=== PATIENT | male | born 1945 | race Caucasian/White ===

== ENCOUNTER 2019-01-15 16:50 | Inpatient (IN) ==
--- NOTE | 2019-01-15 17:23 | XRay Report ---
SINGLE VIEW CHEST CLINICAL HISTORY: Pleural effusions. FINDINGS: An AP, portable, upright chest radiograph is compared to study dated 01/10/2019. The examin ation is degraded by portable technique and patient rotation. The heart is markedly enlarged noting a therosclerotic calcification of the thoracic aorta. There is pulmonary vascular congestion. A left ba silar chest tube is in place. There are left larger than right pleural effusions with associated cons olidation. Question a small left apical pneumothorax versus skinfold. The skeletal structures are ost eopenic. The bony thorax is grossly intact. IMPRESSION: 1. Cardiomegaly with evidence of congestive failure. 2. There are bilateral pleural effusions with associated consolidation, similar in appearance to 01/10. 3. Question a small left apical pneumothorax versus skinfold. Correlation with a PA and lateral exami nation is recommended. Electronically signed by: Mike Chavarria M.D. 01/15/2019 5:22 PM
[2019-01-15 17:58] LABS: Basophils # (auto) 0.01 K/uL (0-0.2); Basophils % (auto) 0.1 %; Eosinophils # (auto) 0.03 K/uL (0-0.5); Eosinophils % (auto) 0.2 %; Hematocrit (blood only) 37.2 % (42-52); Hemoglobin 11.3 g/dL (14.0-18.0); Immature Granulocytes # (auto) 0.06 K/uL (0.00-0.02); Immature Granulocytes % (auto) 0.4 %; Lymphocytes # (auto) 0.24 K/uL (1.2-3.4); Lymphocytes % (auto) 1.7 %; Mean Corpuscular Hemoglobin 25.4 pg (25-34); Mean Corpuscular Hgb Conc 30.4 g/dL (32-36); Mean Corpuscular Volume 83.6 fL (80-100); Mean Platelet Volume 9.6 fL (7.4-10.4); Monocytes # (auto) 0.77 K/uL (0.11-0.59); Monocytes % (auto) 5.4 %; Neutrophils # (auto) 13.21 K/uL (1.4-6.5); Neutrophils % (auto) 92.2 %; Platelet Count 170 K/uL (130-400); RDW Standard Deviation 63.8 fL (36.4-46.3); Red Blood Count 4.45 M/uL (4.7-6.1); White Blood Count 14.32 K/uL (4.8-10.8)
[2019-01-15 18:18] LABS: Echinocytes 2+; Hypochromasia Present; Ovalocytes 1+
[2019-01-15 18:55] LABS: Alanine Aminotransferase 48 U/L (12-78); Albumin Globulin Ratio 0.6 (0.9-2); Albumin Level 2.2 gm/dl (3.4-5.0); Alkaline Phosphatase 154 U/L (45-117); Aspartate Aminotransferase 32 U/L (15-37); BUN Creatinine Ratio 34.3 (10-20); Bilirubin,Total 0.5 mg/dl (0.2-1); Blood Urea Nitrogen 35 mg/dl (7-18); Calcium 8.9 mg/dl (8.5-10.1); Carbon Dioxide 33 mmol/L (21-32); Chloride 101 mmol/L (98-107); Creatinine Clr Calc Pharmacy 72.9 ml/min; Est GFR (African American) 85.3; Est GFR (Non-African American) 73.6; Globulin 3.7 gm/dl (2.5-4.0); Glucose 123 mg/dl (70-99); Sodium 138 mmol/L (136-145); Total Protein 5.9 gm/dl (6.4-8.2); Troponin I < 0.015 ng/ml (0-0.045)
--- NOTE | 2019-01-15 19:17 | CT Scan Report ---
CT chest wo con CLINICAL HISTORY: 73 years-old Male presenting with left apical pneumothorax. TECHNIQUE: Multidetector CT imaging of the chest was performed without the use of intravenous contras t. IV contrast: None. One or more dose lowering techniques were used consistent with the principles o f ALARA (as low as reasonably achievable), including automatic exposure control, mA or kV adjustment to individual patient size, and/or use of iterative reconstruction. COMPARISON: Chest x-ray performed earlier today. CT DOSE (mGy.cm): The estimated cumulative dose is 598.63 mGycm. FINDINGS: Assistant Import Manager topogram: Cardiomegaly. Soft tissues: Multiple thyroid nodules. Diffuse body wall edema. Numerous prominent mediastinal lymph nodes in prevascular and paratracheal regions. Some are calcified. Atherosclerosis of the aorta. Mul tichamber enlargement of the heart. Coronary artery, aortic valve, and mitral annular calcification. Small pericardial effusion. Moderate simple appearing right pleural effusion. Small to moderate locul ated left pleural effusion with a pleural drain positioned in the paramediastinal lower lung region. A second pleural drain is positioned in the paramediastinal posterior mid region. Prominent right upp er pole cyst suspected. Diffuse mesenteric edema and trace ascites. Lungs and airways: No pneumothorax. Multifocal occluded lobar, segmental, and subsegmental airways in the lower lobes. Prominent peribronchovascular consolidation in the lower lobes. Patchy peribronchov ascular consolidation in the remainder of the lobes. Pulmonary arteries are not significantly enlarge d relative to adjacent bronchi. No interlobular septal thickening. Musculoskeletal: Degenerative changes of the spine. IMPRESSION: 1. Extensive peribronchovascular consolidation most prominently in the lower lobes though also to va rying degrees throughout the remaining lobes. This is worrisome for multifocal pneumonia or multifoca l cryptogenic organizing pneumonia. 2. Extensive endobronchial debris in the lower lobes, which may represent mucous plugging, aspiratio n, or infectious debris. 3. Bilateral pleural effusions, loculated on the left with pleural drains in place. 4. No pneumothorax. 5. Volume overload with anasarca. No angel pulmonary edema. 6. Cardiomegaly. Electronically signed by: Zaheer Keys M.D. 01/15/2019 7:16 PM
[2019-01-15] MEDS ORDERED: VANCOMYCIN CONSULT ACTIVE PRN (19:25)
[2019-01-15] MEDS ORDERED: PIPERACILLIN/TAZOBACTAM 4.5 GM/120 ML BAG IV ONE (19:25)
[2019-01-15] MEDS ORDERED: PIPERACILL/TAZOBAC CONSULT ACTIVE PRN (19:25)
[2019-01-15] MEDS ORDERED: VANCOMYCIN HCL 1,750 MG in SODIUM CHLORIDE 0.9% 500 ML IV ONE (19:25)
[2019-01-15] MEDS ORDERED: ALBUT/IPRATROP 3MG/0.5MG NEB 3 ML VIAL NEB STA (19:41)
[2019-01-15] MEDS ORDERED: ATROPINE SULFATE 0.1 MG/ML 10ML SYR IV STA (20:26)
--- NOTE | 2019-01-15 20:33 | History & Physical Report ---
Date of Service January 15, 2019 Assessment & Plan (1) Acute hypoxemic respiratory failure: Multifactorial : COPD exacerbation secondary to HCAP, possible aspiration pneumonia, possible sepsis Decompensated heart failure, subacute symptoms, possibly secondary to chronic bradycardia/hx PAF (probable SSS) (Patient was told he was not a candidate for PPM to lung malignancy); fluid retention from prednisone Rx possibly contributory to CHF symptoms) malignant pleural effusion L sp CTT, Pleurx catheter placement hypertension, slightly elevated chronic right hydronephrosis/BPH indwelling Johnson catheter chronic anemia, hemoglobin at baseline Hyperglycemia likely secondary to prednisone Rx following discharge from [facility] rule out DM Past tobacco abuse PCU Supplemental O2 Baseline ABG Cultures, lactic acid, Zosyn, Vancomycin for now Swallow evaluation, aspiration precautions steroid dose for now, nebs RTC for COPD exacerbation (Consider tapering off patient's prednisone rx if okay with [facility] hog counter, Dr. Romero, given fluid retention) Pulmonary consult RE respiratory failure Diuretic Rx retrieve recent TTE results from [facility]; Cardiology consult RE symptomatic bradycardia causing subacute CHF Strict I/Os, daily weights, CHF education Continue current antihypertensives, may need dose titration Retrieve pertinent consultation records (Oncology, Pulmonology, Cardiology, CT surgery) of recent confinement from [facility] Basal insulin, ISS BG goal 140-180, check hemoglobin A1c DVT prophylaxis. IV heparin for now while Eliquis on hold RE possible procedure Full code Patient lists his friend, Mr. Luiz Monk as line person ([phone]). Case discussed with Dr. Zabala (security guard dispatcher on-call) who recommends oral Theophylline trial for now for patient's chronic bradycardia. Total critical time was 55 minutes. History of Present Illness Chief Complaint: Shortness of breath Primary Care Provider: Dr. Farooq History obtained from patient and records. Medical history significant for chronic systolic heart failure (EF unknown as per records), chronic respiratory secondary to COPD/malignant pleural effusion currently on home O2, chronic bradycardia/PAF on Eliquis, hypertension, past tobacco abuse, chronic right hydronephrosis/BPH indwelling Johnson catheter, chronic anemia baseline hemoglobin (10-11). Patient admitted at [facility] last July 2018 for increased shortness of breath. Patient found to have a left lung mass with left pleural effusion. Pleural effusion later found out to be malignant (SCLC as per [facility] Records, squamous cell carcinoma as per [facility] records). Patient also noted to have episodic bradycardia during confinement. Patient did not follow up with [facility] oncologist outpatient as patient was not initially interested in treatment. as per records. Patient seen at [facility] last month for uncontrolled blood pressure, CHF. CT showed interval increase in the left upper lobe hilar mass with likely mediastinal invasion. Interval increase in large left pleural effusion with associated compressive atelectasis of left lower lobe lung. No pulmonary artery embolism. Patient subsequently transferred to [facility] where he was confined from December 25-2018. Patient underwent CTT and Pleurx catheter placement for left pleural effusion. As per patient, he was told by [facility] security guard dispatcher that he was not a candidate for pacemaker given his cancer. Losartan stopped for hyperkalemia. Patient subsequently discharged to [facility] for rehab with instructions to follow-up with [facility] specialists outpatient within 1 week of discharge. Patient discharged on Prednisone 20 mg daily (indefinite duration) for COPD exacerbation by hog counter. Patient had expressed interest in pursuing chemotherapy as per records. Patient seen at [facility] ER 5 days ago for chest tube complications. Chest x-ray showed left basilar chest tube. Cardiomegaly with mild congestive change. Bibasilar densities/effusions left greater than the right. Pleur evac container was noted to be overflowing because [facility] staff would not change it as per patient. Pleur-evac was changed at the ER. Last few days patient noted worsening cough symptoms productive of junky sputum, coughing with meals/water if he is not careful. Increasing shortness of breath, no chest pain. No fever, no chills. At the ER, patient received IV Vanco and Zosyn for pneumonia. 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, estranged from and children Allergies Allergy/AdvReac Type Severity Reaction Status Date / Time hepatitis B immune globulin AdvReac Unknown Unverified 01/15/19 18:24 losartan AdvReac hyperkalemi Verified 01/16/19 05:06 a Home Medications Home Medications Medication Instructions Recorded Confirmed Type acetaminophen 650 mg PO Q6H PRN MDD 3G 01/10/19 01/15/19 History acetaminophen 650 mg PO Q6H PRN MDD 3G 01/10/19 01/15/19 History amlodipine 5 mg PO DAILY 01/10/19 01/15/19 History apixaban [Eliquis] 5 mg PO DAILY 01/10/19 01/15/19 History bisacodyl 10 mg MS DAILY PRN 01/10/19 01/15/19 History cyanocobalamin (vitamin B-12) 1,000 mcg PO DAILY 01/10/19 01/15/19 History folic acid 1 mg PO DAILY 01/10/19 01/15/19 History hydralazine 10 mg PO BID 01/10/19 01/15/19 History ipratropium-albuterol 3 ml INHALATION Q4H PRN 01/10/19 01/15/19 History magnesium hydroxide [Milk of 30 ml PO HS PRN 01/10/19 01/15/19 History Magnesia] oxycodone-acetaminophen [Percocet] 1 tab PO Q4H PRN 01/10/19 01/15/19 History oxycodone-acetaminophen [Percocet] 2 tab PO Q4 PRN 01/10/19 01/15/19 History pantoprazole [Protonix] 40 mg PO DAILY 01/10/19 01/15/19 History prednisone 20 mg PO DAILY 01/10/19 01/15/19 History pseudoephedrine-guaifenesin 1 tab PO Q12H PRN 01/10/19 01/15/19 History [Mucinex D] tamsulosin 0.4 mg PO DAILY 01/10/19 01/15/19 History Past Med/Surg History Medical History CHF (congestive heart failure) HTN (hypertension) Hydronephrosis, right Lung cancer Paroxysmal A-fib Pleural effusion, left Family History Other Family history non-contributory Social History Preferred Language: Georgian Communication Ability: Effective Field Care Manager Required: No Beliefs That Will Affect Care: None marital status: Single Current Living Situation: Senior Care current occupational status: retired Other Information That Helps Us Care for You: No Feels Safe at Home: Yes Safety Concerns: Afraid for Self Smoking Status: Former smoker Do You Dip or Chew Tobacco: No ; Second Hand Exposure: No ; Tobacco Cessation Education Requested by Patient: No Hx Alcohol Use: No Hx Substance Use: No Review of Systems Review of Systems: As per HPI, all 10 systems reviewed, all other ROS negative Physical Exam Physical Exam: GENERAL: uncomfortable, minimal respiratory distress, has to catch his breath during speech SKIN: Pallor, warm HEENT: Pale palpebral conjunctivae, no ptosis, dry buccal mucosa, nasal cannula in place NECK : Supple, no tenderness CHEST : Decreased breath sounds, expiratory wheezes, dressing over left chest wall HEART : Bradycardic, diminished S1-S2 ABDOMEN: Some distention, nontender EXTREMITIES : Bilateral LE swelling, no LE tenderness, no other conspicuous deformities noted NEUROLOGIC : Coherent, no facial asymmetry, no other gross focality Results & Data Vital Signs (Past 12 Hours) Vital Signs Temp Pulse Pulse Resp BP Pulse Ox 01/15/19 20:28 37 L 16 97 01/15/19 20:00 37 L 22 01/15/19 19:17 37 L 20 161/75 H 100 01/15/19 19:15 38 L 21 01/15/19 18:00 38 L 23 154/75 H 100 01/15/19 17:16 37.0 C 32 L 26 H 154/72 H 98 01/15/19 17:00 67 24 94 01/15/19 16:57 41 L 18 154/72 H 95 Laboratory Results Laboratory Results WBC 14.32 K/uL (4.8-10.8) H 01/15/19 17:45 RBC 4.45 M/uL (4.7-6.1) L 01/15/19 17:45 Hgb 11.3 g/dL (14.0-18.0) L 01/15/19 17:45 Hct 37.2 % (42-52) L 01/15/19 17:45 MCV 83.6 fL (80-100) 01/15/19 17:45 MCH 25.4 pg (25-34) 01/15/19 17:45 MCHC 30.4 g/dL (32-36) L 01/15/19 17:45 RDW Std Deviation 63.8 fL (36.4-46.3) H 01/15/19 17:45 RDW Coeff of Brenda 21.0 % (11.5-14.5) H 01/15/19 17:45 Plt Count 170 K/uL (130-400) 01/15/19 17:45 MPV 9.6 fL (7.4-10.4) 01/15/19 17:45 Immature Gran % (Auto) 0.4 % 01/15/19 17:45 Neut % (Auto) 92.2 % 01/15/19 17:45 Lymph % (Auto) 1.7 % 01/15/19 17:45 [place] % (Auto) 5.4 % 01/15/19 17:45 Eos % (Auto) 0.2 % 01/15/19 17:45 Baso % (Auto) 0.1 % 01/15/19 17:45 Immature Gran # (Auto) 0.06 K/uL (0.00-0.02) H 01/15/19 17:45 Neut # (Auto) 13.21 K/uL (1.4-6.5) H 01/15/19 17:45 Lymph # (Auto) 0.24 K/uL (1.2-3.4) L 01/15/19 17:45 [place] # (Auto) 0.77 K/uL (0.11-0.59) H 01/15/19 17:45 Eos # (Auto) 0.03 K/uL (0-0.5) 01/15/19 17:45 Baso # (Auto) 0.01 K/uL (0-0.2) 01/15/19 17:45 Hypochromasia Present 01/15/19 17:45 Ovalocytes 1+ 01/15/19 17:45 Echinocytes 2+ 01/15/19 17:45 Sodium 138 mmol/L (136-145) 01/15/19 17:45 Potassium 5.0 mmol/L (3.5-5.1) 01/15/19 17:45 Chloride 101 mmol/L (98-107) 01/15/19 17:45 Carbon Dioxide 33 mmol/L (21-32) H 01/15/19 17:45 Anion Gap 4.0 (3-11) 01/15/19 17:45 BUN 35 mg/dl (7-18) H 01/15/19 17:45 Creatinine 1.02 mg/dl (0.6-1.4) 01/15/19 17:45 Est Cr Clr Drug Dosing 72.9 ml/min 01/15/19 17:45 Est GFR ( Amer) 85.3 01/15/19 17:45 Est GFR (Non-Af Amer) 73.6 01/15/19 17:45 BUN/Creatinine Ratio 34.3 (10-20) H 01/15/19 17:45 Glucose 123 mg/dl (70-99) H 01/15/19 17:45 Calcium 8.9 mg/dl (8.5-10.1) 01/15/19 17:45 Total Bilirubin 0.5 mg/dl (0.2-1) 01/15/19 17:45 AST 32 U/L (15-37) 01/15/19 17:45 ALT 48 U/L (12-78) 01/15/19 17:45 Alkaline Phosphatase 154 U/L (45-117) H 01/15/19 17:45 Troponin I < 0.015 ng/ml (0-0.045) 01/15/19 17:45 Total Protein 5.9 gm/dl (6.4-8.2) L 01/15/19 17:45 Albumin 2.2 gm/dl (3.4-5.0) L 01/15/19 17:45 Globulin 3.7 gm/dl (2.5-4.0) 01/15/19 17:45 Albumin/Globulin Ratio 0.6 (0.9-2) L 01/15/19 17:45 Specimen Hemolysis 01/15/19 17:[address] chest: 1. Extensive peribronchovascular consolidation most prominently in the lower lobes though also to varying degrees throughout the remaining lobes. This is worrisome for multifocal pneumonia or multifocal cryptogenic organizing pneumonia. 2. Extensive endobronchial debris in the lower lobes, which may represent mucous plugging, aspiration, or infectious debris. 3. Bilateral pleural effusions, loculated on the left with pleural drains in place. 4. No pneumothorax. 5. Volume overload with anasarca. No angel pulmonary edema. 6. Cardiomegaly. EKG as per my interpretation rate 40, junctional bradycardia, normal axis, T wave flattening inferior leads, low voltage
[2019-01-15 20:39] LABS: Base Excess ABG 6.9 mEq/L (-9-1.8); HCO3 ABG 32 mmol/L (19-24); Oxygen Saturation ABG 97.9 % (90-95); PCO2 ABG 49 mmHg (35-46); PO2 ABG 105 mm/Hg (80-95); pH ABG 7.43 (7.35-7.45)
[2019-01-15 20:45] LABS: Allen Test Pos (Pos)
[2019-01-15] MEDS ORDERED: FUROSEMIDE 40 MG in SYRINGE 0 ML IV ONE (20:49)
[2019-01-15 20:56] LABS: Magnesium 2.1 mg/dl (1.8-2.4)
[2019-01-15 21:11] LABS: T4 Free Thyroxine 0.86 ng/dl (0.8-1.6)
[2019-01-15] MEDS ORDERED: FUROSEMIDE 40 MG/4 ML VIAL IV STA (21:14)
[2019-01-15 21:41] LABS: Appearance Urine Turbid (Clear); Bacteria Urine Automated Negative (Negative); Bilirubin Urine Negative (Negative); Blood Urine 3+ (Negative); Color Urine Yellow; Epithelial Cell Urine Auto >30 /lpf (0-5); Glucose Urine UA Negative (Negative); Ketones Urine Negative (Negative); Leukocyte Esterase Urine 2+ (Negative); Nitrite Urine Negative (Negative); Protein Urine Negative (Negative); Specific Gravity Urine 1.022 (1.000-1.030); Urobilinogen Urine Negative (Negative)
[2019-01-15 21:54] LABS: Mucus Urine Present (None Prsent); Renal Epithelial Cells Urine 0-5 /lpf (0-5); Uric Acid Crystals Urine Present (None Prsent)
--- NOTE | 2019-01-15 23:25 | Emergency Department Note ---
Entered by Sammy Truong acting as a scribe for History of Present Illness General Chief complaint: Shortness of Breath/Dyspnea Stated complaint: SOB, WEAKNESS Time Seen by Provider: 01/15/19 16:52 Source: patient Mode of arrival: EMS Limitations: no limitations History of Present Illness Provider complaint: Full Pleur/evac, Difficulty Breathing Location: chest Radiation: non-radiation Pain Consistency: + constant Relieved By: + none Exacerbated By: + none Associated symptoms: + denies other symptoms Treatments prior to arrival: none The patient is a 73 year old male who presents to the Emergency Department with complaints of difficulty breathing as well as a full pleur/evac. The patient has lung cancer from which he gets pleural effusions in both of his lungs. He was sent to the ED a few days ago because his pleur/evac was full, after it was changed he was sent home. He is here today for the same reason. He stated that the people at [facility] felt he was having more difficulty breathing and they sent him in. The patient is not feeling any chest pain, fevers, or vomiting. He states he is not more short of breath than his baseline. He does have a cough. He also denies any new swelling in his legs. Per EMS, the patient has two left sided chest tubes due to lung cancer, he was sent here because his tube is full. The patient is having trouble breathing. EMS also noted that his heart rate has been in the 30s but the nurse states that he has always had a heart rate in the 30s. Home Medications Home Medications Medication Instructions Recorded Confirmed Type acetaminophen 650 mg PO Q6H PRN MDD 3G 01/10/19 01/15/19 History acetaminophen 650 mg PO Q6H PRN MDD 3G 01/10/19 01/15/19 History amlodipine 5 mg PO DAILY 01/10/19 01/15/19 History apixaban [Eliquis] 5 mg PO DAILY 01/10/19 01/15/19 History bisacodyl 10 mg [place] DAILY PRN 01/10/19 01/15/19 History cyanocobalamin (vitamin B-12) 1,000 mcg PO DAILY 01/10/19 01/15/19 History folic acid 1 mg PO DAILY 01/10/19 01/15/19 History hydralazine 10 mg PO BID 01/10/19 01/15/19 History ipratropium-albuterol 3 ml INHALATION Q4H PRN 01/10/19 01/15/19 History magnesium hydroxide [Milk of 30 ml PO HS PRN 01/10/19 01/15/19 History Magnesia] oxycodone-acetaminophen [Percocet] 1 tab PO Q4H PRN 01/10/19 01/15/19 History oxycodone-acetaminophen [Percocet] 2 tab PO Q4 PRN 01/10/19 01/15/19 History pantoprazole [Protonix] 40 mg PO DAILY 01/10/19 01/15/19 History prednisone 20 mg PO DAILY 01/10/19 01/15/19 History pseudoephedrine-guaifenesin 1 tab PO Q12H PRN 01/10/19 01/15/19 History [Mucinex D] tamsulosin 0.4 mg PO DAILY 01/10/19 01/15/19 History Allergies Allergy/AdvReac Type Severity Reaction Status Date / Time hepatitis B immune globulin AdvReac Unknown Unverified 01/15/19 18:24 Past Med/Surg History Medical History CHF (congestive heart failure) HTN (hypertension) Hydronephrosis, right Lung cancer Paroxysmal A-fib Pleural effusion, left Family History Other Family history non-contributory Social History Preferred Language: Setswana marital status: Single Current Living Situation: Long-Term current occupational status: retired Feels Safe at Home: Yes Smoking Status: Former smoker Review of Systems See HPI for pertinent positives & negatives. and A total of 10 systems reviewed and were otherwise negative Physical Exam Vital Signs Vital Signs - 24 hr 01/15/19 16:57 01/15/19 17:00 01/15/19 17:16 Temperature 37.0 C Temperature Source Oral Sepsis Recent Fever Within 48 Hours No Sepsis New/Unexplained Change in Mental Status No Sepsis Action Taken by Nursing No Action Required Pulse Rate 41 L 67 32 L Pulse Rate [Right Radial] Pulse Rate from SpO2 Sensor 40 L 39 L Pulse Rhythm Irregular Irregular Pulse Strength Normal Respiratory Rate 18 24 26 H Respiratory Effort / Characteristics Spontaneous Labored Respiratory Depth Deep Respiratory Pattern Regular Blood Pressure 154/72 H 154/72 H Blood Pressure Mean 99 99 Blood Pressure Position Sitting Pulse Oximetry 95 94 98 Oxygen Delivery Method Nasal Cannula Nasal Cannula Oxygen Flow Rate 4 4 01/15/19 18:00 01/15/19 19:15 01/15/19 19:17 Temperature Temperature Source Sepsis Recent Fever Within 48 Hours Sepsis New/Unexplained Change in Mental Status Sepsis Action Taken by Nursing Pulse Rate 38 L 38 L 37 L Pulse Rate [Right Radial] Pulse Rate from SpO2 Sensor 38 L 37 L Pulse Rhythm Pulse Strength Respiratory Rate 23 21 20 Respiratory Effort / Characteristics Respiratory Depth Respiratory Pattern Blood Pressure 154/75 H 161/75 H Blood Pressure Mean 101 103 Blood Pressure Position Pulse Oximetry 100 100 Oxygen Delivery Method Oxygen Flow Rate 01/15/19 20:00 01/15/19 20:28 01/15/19 20:50 Temperature Temperature Source Sepsis Recent Fever Within 48 Hours Sepsis New/Unexplained Change in Mental Status Sepsis Action Taken by Nursing Pulse Rate 37 L 37 L Pulse Rate [Right Radial] 37 L Pulse Rate from SpO2 Sensor Pulse Rhythm Pulse Strength Respiratory Rate 22 16 22 Respiratory Effort / Characteristics Non-Labored Spontaneous Respiratory Depth Respiratory Pattern Blood Pressure 147/72 H Blood Pressure Mean 97 Blood Pressure Position Pulse Oximetry 97 Oxygen Delivery Method Nasal Cannula Oxygen Flow Rate 4 01/15/19 21:00 Temperature Temperature Source Sepsis Recent Fever Within 48 Hours Sepsis New/Unexplained Change in Mental Status Sepsis Action Taken by Nursing Pulse Rate 40 L Pulse Rate [Right Radial] Pulse Rate from SpO2 Sensor Pulse Rhythm Pulse Strength Respiratory Rate 20 Respiratory Effort / Characteristics Respiratory Depth Respiratory Pattern Blood Pressure 145/71 H Blood Pressure Mean 95 Blood Pressure Position Pulse Oximetry Oxygen Delivery Method Oxygen Flow Rate Constitutional: Vital signs reviewed. Eyes: Pupils are equal round reactive to light. Conjunctiva are noninjected. ENT: Pharynx is clear without erythema or exudate. Mucous membranes are moist. Neck supple without meningeal signs. Respiratory: Breath sounds are diminished at the bases. No wheezing is noted. Two left sided chest tubes, 1 capped and 1 draining into a pleur/evac which is full, no bleeding or infection from insertion site. The pleur/evac is full with serosanguineous material. Cardiovascular: Bradycardic. Irregularly irregular rhythm. GI: Soft, nondistended and nontender. Bowel sounds are present. Johnson in place with dark yellow urine and sediment. Musculoskeletal: Bilateral edema to lower extremities, no tenderness. Integumentary: No cyanosis. Neurological: The patient is awake and alert. No focal deficits. Psychiatric: Normal affect. Course 1653: Medical records reviewed. The patient was seen in room C10, a physical examination was performed. 1924: I spoke with the patient about his test results, he is agreeable to hospitalization. He would like something to eat. He is drained about 50 cc of serosanguineous fluid in the new pleuro/evak. 1929: I spoke with the Dr. Dominguez, [facility] Hospitalist, about the patients case and he agreed to accept the patient for further evaluation. 1934: The patient was admitted. Administered Medications Discontinued Medications Albuterol (Duoneb) 3 ml NEB NOW STA Stop: 01/15/19 19:42 Last Admin: 01/15/19 20:26 Dose: 3 ml Documented by: [id number] Atropine Sulfate (Atropine Sulfate) 0.5 mg IV NOW STA Stop: 01/15/19 20:27 Last Admin: 01/15/19 21:19 Dose: 0.5 mg Documented by: [id number] Furosemide (Lasix) 40 mg IV NOW STA Stop: 01/15/19 21:15 Last Admin: 01/15/19 21:18 Dose: 40 mg Documented by: [id number] Piperacillin Sod/Tazobactam Sod (Zosyn) 4.5 gm in 120 mls @ 240 mls/hr IV NOW ONE Stop: 01/15/19 19:54 Last Infusion: 01/15/19 22:51 Dose: 0 mls/hr Documented by: [id number] Admin: 01/15/19 20:35 Dose: 240 mls/hr Documented by: [id number] Vancomycin HCl 1,750 mg/ (Sodium Chloride) 535 mls @ 200 mls/hr IV NOW ONE Stop: 01/15/19 22:05 Last Admin: 01/15/19 21:18 Dose: 200 mls/hr Documented by: [id number] Methylprednisolone (Solumedrol) 40 mg IV NOW STA Stop: 01/15/19 19:42 Last Admin: 01/15/19 20:35 Dose: 40 mg Documented by: [id number] Medical Decision Making Differential Diagnosis Differential Diagnosis: Equipment malfunction, pleural effusion, PNA, lung cancer, bradycardia Medical Records Attestation: I reviewed the patient's medical records. The patient was seen here on January [address] Henson for problems with his chest tubes. His heart rate was in the 30s with Afib. Pleur/evac were changed and he was discharged home. Home Medications Current Medication List: was personally reviewed by me Laboratory Data Attestation: I reviewed the patient's lab results. Result diagrams: 01/15/19 17:45 01/15/19 17:45 Lab Results 01/15/19 01/15/19 01/15/19 Range/Units 17:45 17:45 20:04 WBC 14.32 H (4.8-10.8) K/uL RBC 4.45 L (4.7-6.1) M/uL Hgb 11.3 L (14.0-18.0) g/dL Hct 37.2 L (42-52) % MCV 83.6 (80-100) fL MCH 25.4 (25-34) pg MCHC 30.4 L (32-36) g/dL RDW Std Deviation 63.8 H (36.4-46.3) fL RDW Coeff of Brenda 21.0 H (11.5-14.5) % Plt Count 170 (130-400) K/uL MPV 9.6 (7.4-10.4) fL Immature Gran % (Auto) 0.4 % Neut % (Auto) 92.2 % Lymph % (Auto) 1.7 % [place] % (Auto) 5.4 % Eos % (Auto) 0.2 % Baso % (Auto) 0.1 % Immature Gran # (Auto) 0.06 H (0.00-0.02) K/uL Neut # (Auto) 13.21 H (1.4-6.5) K/uL Lymph # (Auto) 0.24 L (1.2-3.4) K/uL [place] # (Auto) 0.77 H (0.11-0.59) K/uL Eos # (Auto) 0.03 (0-0.5) K/uL Baso # (Auto) 0.01 (0-0.2) K/uL Hypochromasia Present Ovalocytes 1+ Echinocytes 2+ ABG pH (7.35-7.45) ABG pCO2 (35-46) mmHg ABG pO2 (80-95) mm/Hg ABG HCO3 (19-24) mmol/L ABG O2 Saturation (90-95) % ABG Base Excess (-9-1.8) mEq/L Gerald Test (Pos) Barometric Pressure mm/Hg Oxygen Given Sodium 138 (136-145) mmol/L Potassium 5.0 (3.5-5.1) mmol/L Chloride 101 (98-107) mmol/L Carbon Dioxide 33 H (21-32) mmol/L Anion Gap 4.0 (3-11) BUN 35 H (7-18) mg/dl Creatinine 1.02 (0.6-1.4) mg/dl Est Cr Clr Drug Dosing 72.9 ml/min Est GFR ( Amer) 85.3 Est GFR (Non-Af Amer) 73.6 BUN/Creatinine Ratio 34.3 H (10-20) Glucose 123 H (70-99) mg/dl Lactate (0.4-2.0) mmol/L Calcium 8.9 (8.5-10.1) mg/dl Magnesium 2.1 (1.8-2.4) mg/dl Total Bilirubin 0.5 (0.2-1) mg/dl AST 32 (15-37) U/L ALT 48 (12-78) U/L Alkaline Phosphatase 154 H (45-117) U/L Troponin I < 0.015 (0-0.045) ng/ml NT-Pro-B Natriuret Pep 2971 H (0-900) pg/ml Total Protein 5.9 L (6.4-8.2) gm/dl Albumin 2.2 L (3.4-5.0) gm/dl Globulin 3.7 (2.5-4.0) gm/dl Albumin/Globulin Ratio 0.6 L (0.9-2) TSH 11.000 H (0.300-4.500) uIu/ml Free T4 0.86 (0.8-1.6) ng/dl Specimen Hemolysis 01/15/19 01/15/19 Range/Units 20:04 20:04 WBC (4.8-10.8) K/uL RBC (4.7-6.1) M/uL Hgb (14.0-18.0) g/dL Hct (42-52) % MCV (80-100) fL MCH (25-34) pg MCHC (32-36) g/dL RDW Std Deviation (36.4-46.3) fL RDW Coeff of Brenda (11.5-14.5) % Plt Count (130-400) K/uL MPV (7.4-10.4) fL Immature Gran % (Auto) % Neut % (Auto) % Lymph % (Auto) % [place] % (Auto) % Eos % (Auto) % Baso % (Auto) % Immature Gran # (Auto) (0.00-0.02) K/uL Neut # (Auto) (1.4-6.5) K/uL Lymph # (Auto) (1.2-3.4) K/uL [place] # (Auto) (0.11-0.59) K/uL Eos # (Auto) (0-0.5) K/uL Baso # (Auto) (0-0.2) K/uL Hypochromasia Ovalocytes Echinocytes ABG pH 7.43 (7.35-7.45) ABG pCO2 49 H (35-46) mmHg ABG pO2 105 H (80-95) mm/Hg ABG HCO3 32 H (19-24) mmol/L ABG O2 Saturation 97.9 H (90-95) % ABG Base Excess 6.9 H (-9-1.8) mEq/L Gerald Test Pos (Pos) Barometric Pressure 736.4 mm/Hg Oxygen Given 4 L Sodium (136-145) mmol/L Potassium (3.5-5.1) mmol/L Chloride (98-107) mmol/L Carbon Dioxide (21-32) mmol/L Anion Gap (3-11) BUN (7-18) mg/dl Creatinine (0.6-1.4) mg/dl Est Cr Clr Drug Dosing ml/min Est GFR ( Amer) Est GFR (Non-Af Amer) BUN/Creatinine Ratio (10-20) Glucose (70-99) mg/dl Lactate 1.1 (0.4-2.0) mmol/L Calcium (8.5-10.1) mg/dl Magnesium (1.8-2.4) mg/dl Total Bilirubin (0.2-1) mg/dl AST (15-37) U/L ALT (12-78) U/L Alkaline Phosphatase (45-117) U/L Troponin I (0-0.045) ng/ml NT-Pro-B Natriuret Pep (0-900) pg/ml Total Protein (6.4-8.2) gm/dl Albumin (3.4-5.0) gm/dl Globulin (2.5-4.0) gm/dl Albumin/Globulin Ratio (0.9-2) TSH (0.300-4.500) uIu/ml Free T4 (0.8-1.6) ng/dl Specimen Hemolysis Imaging Data Radiologist's Impression: Radiology results as stated below per my review and the radiologist's interpretation: SINGLE VIEW CHEST CLINICAL HISTORY: Pleural effusions. FINDINGS: An AP, portable, upright chest radiograph is compared to study dated 01/10/2019. The examination is degraded by portable technique and patient rotation. The heart is markedly enlarged noting atherosclerotic calcification of the thoracic aorta. There is pulmonary vascular congestion. A left basilar chest tube is in place. There are left larger than right pleural effusions with associ ated consolidation. Question a small left apical pneumothorax versus skinfold. The skeletal structures are osteopenic. The bony thorax is grossly intact. IMPRESSION: 1. Cardiomegaly with evidence of congestive failure. 2. There are bilateral pleural effusions with associated consolidation, similar in appearance to 01/10/2019. 3. Question a small left apical pneumothorax versus skinfold. Correlation with a PA and lateral examination is recommended. Electronically signed by: Mike Chavarria M.D. 01/15/2019 5:[address] chest wo con CLINICAL HISTORY: 73 years-old Male presenting with left apical pneumothorax. TECHNIQUE: Multidetector CT imaging of the chest was performed without the use of intravenous contrast. IV contrast: None. One or more dose lowering techniques were used consistent with the principles of ALARA (as low as reasonably achiev able), including automatic exposure control, mA or kV adjustment to individual patient size, and/or use of iterative reconstruction. COMPARISON: Chest x-ray performed earlier today. CT DOSE (mGy.cm): The estimated cumulative dose is 598.63 mGycm. 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 Soft tissues: Multiple thyroid nodules. Diffuse body wall edema. Numerous prominent mediastinal lymph nodes in prevascular and paratracheal regions. Some are calcified. Atherosclerosis of the aorta. Multichamber enlargement of the heart. Coronary artery, aortic valve, and mitral annular calcification. Small pericardial effusion. Moderate simple appearing right pleural effusion. Small to moderate loculated left pleural effusion with a pleural drain positioned in the paramediastinal lower lung region. A second pleural drain is positioned in the paramediastinal posterior mid region. Prominent right upper pole cyst suspected. Diffuse mesenteric edema and trace ascites. Lungs and airways: No pneumothorax. Multifocal occluded lobar, segmental, and subsegmental airways in the lower lobes. Prominent peribronchovascular consolidation in the lower lobes. Patchy peribronchovascular consolidation in the remainder of the lobes. Pulmonary arteries are not significantly enlarged relative to adjacent bronchi. No interlobular septal thickening. Musculoskeletal: Degenerative changes of the spine. IMPRESSION: 1. Extensive peribronchovascular consolidation most prominently in the lower lobes though also to varying degrees throughout the remaining lobes. This is worrisome for multifocal pneumonia or multifocal cryptogenic organizing pneumonia. 2. Extensive endobronchial debris in the lower lobes, which may represent mucous plugging, aspiration, or infectious debris. 3. Bilateral pleural effusions, loculated on the left with pleural drains in place. 4. No pneumothorax. 5. Volume overload with anasarca. No angel pulmonary edema. 6. Cardiomegaly. Electronically signed by: Zaheer Keys M.D. 01/15/2019 7:16 PM ECG Data Attestation: I personally reviewed and interpreted this ECG as follows: Indication: bradycardia Rate (beats per minute): 39 Rhythm: atrial fibrillation Findings: + other (Low voltage QRS); no PVC Blood Pressure Blood Pressure Findings: Elevated blood pressure Blood Pressure Disposition: further management by hospitalist EFREN Wen I did evaluate the patient as noted above. I did obtain history from the patient as well as EMS and the nurse who took care of him previously. The patient is presenting with increased shortness of breath and his Pleur-evac his fall. It does have serosanguineous fluids. He states he has no symptoms above his baseline at this time. On exam he does have diminished breath sounds at both bases. IV access was established. The patient was placed on a continuous monitoring specialist. I did order and personally review the patient's 12-lead EKG as described above. His twelve-lead EKG demonstrates bradycardia. Looking at his previous visit he had a heart rate in the 30s at that time as well. He is maintaining his blood pressure and is actually hypertensive and so I was not concerned about his heart rate at this time. I did order and personally reviewed the images of the patient's chest x-ray as described above. He does appear to have pleural effusions with consolidation similar to his previous [facility] x-ray. There was a question of a small apical pneumothorax. I did feel he had increased consolidation on the right side and so I did order a CT scan. I did order a CT of the abdomen and pelvis. I did review the images myself as well as the radiology report as described above. He does have bilateral effusions with the left being greater and significant consolidation. I did order blood cultures. I did treat the patient with IV Zosyn and vancomycin. I did order a urine analysis. He does not have an infection. I did order and review the patient's blood work as noted in the electronic medical record. His white count is elevated. Troponin is negative. He is anemic. I did discuss the test results with the patient. I did discuss the case with the hospitalist and major case detective. Impression & Plan Multifocal pneumonia, Bilateral pleural effusion, Malignant pleural effusion, Acute pericardial effusion, Anemia, Oxygen dependent, Bradycardia Discharge Plan Visit Data Chief Complaint: Shortness of Breath/Dyspnea Stated Complaint: SOB, WEAKNESS ED Provider: Adalid Alfaro Discharge Problem: Multifocal pneumonia, Bilateral pleural effusion, Malignant pleural effusion, Acute pericardial effusion, Anemia, Oxygen dependent, Bradycardia Patient Disposition: Being Evaluated by Hospitalist Discharge Instructions Interventions: ED Discharge Assessment Last Done: 01/15/19 22:49 Discharge Problem: Anemia Qualifiers: Anemia type: unspecified type Qualified Code(s): D64.9 - Anemia, unspecified The ionibe's documentation has been prepared under my direction and personally reviewed by me in its entirety. I confirm that the note above accurately reflects all work, treatment, procedures, and medical decision making performed by me.
[2019-01-15] MEDS ORDERED: PROMETHAZINE HCL 12.5 MG in SODIUM CHLORIDE 0.9% 50 ML IV PRN (23:48)
[2019-01-15] MEDS ORDERED: NITROGLYCERIN SL 0.4 MG/TAB TAB SL PRN (23:48)
[2019-01-15] MEDS ORDERED: OXYCODONE/ACETAMINOPHEN 5mg/325mg TAB PO PRN ×2 (23:48)
[2019-01-15] MEDS ORDERED: MoRPHine SULFATE 4 MG/ML 1 ML CARP\\VIAL IV PRN (23:48)
[2019-01-15] MEDS ORDERED: ACETAMINOPHEN 325 MG TAB PO PRN ×2 (23:48)
[2019-01-16] MEDS ORDERED: Heparin IV Standard *NO* Bolus IV SCH
[2019-01-16] MEDS ORDERED: GLUCAGON FOR INJ 1 MG VIAL IM PRN (00:15)
[2019-01-16] MEDS ORDERED: GLUCOSE 10 TABS/TUBE PO PRN ×2 (00:15→20:50)
[2019-01-16] MEDS ORDERED: GLUCOSE 40% GEL 15 GM TUBE PO PRN ×2 (00:15→20:50)
[2019-01-16] MEDS ORDERED: DEXTROSE 50% 50 ML SYRINGE IV PRN ×2 (00:15→20:50)
[2019-01-16] MEDS ORDERED: CARBOHYDRATES FOR HYPOGLYCEMIA PO PRN ×2 (00:15→20:50)
[2019-01-16] MEDS: ALBUT/IPRATROP 3MG/0.5MG NEB 3 ML VIAL NEB SCH ×7 (00:36→23:20)
--- NOTE | 2019-01-16 00:58 | Pharmacy Report ---
Pharmacy Abx Initial Consult - Date of Service January 16, 2019 - Pharmacy Dosing Scope Date of Consult: 01/15/19 Consultation requested by: Dr. CANDELARIA Pharmacy is consulted to initiate VANCOMYCIN/ZOSYN IV dosing therapy, order appropriate labs and adjust drug dose/frequency. - Subjective The patient is a 73 year old M admitted on 01/15/19 21:12. - Objective Height: 6 ft Weight: 87 kg Vital Signs (Past 12hrs): Vital Signs Temp Pulse Pulse Pulse Resp BP Pulse Ox 01/16/19 00:36 35 L 18 100 01/15/19 22:31 37 L 19 197/86 H 01/15/19 22:00 38 L 19 01/15/19 21:00 40 L 20 145/71 H 01/15/19 20:50 37 L 22 147/72 H 01/15/19 20:28 37 L 16 97 01/15/19 20:00 37 L 22 01/15/19 19:17 37 L 20 161/75 H 100 01/15/19 19:15 38 L 21 01/15/19 18:00 38 L 23 154/75 H 100 01/15/19 17:16 37.0 C 32 L 26 H 154/72 H 98 01/15/19 17:00 67 24 94 01/15/19 16:57 41 L 18 154/72 H 95 Lab Results (24hrs): Laboratory Tests (24 Hours) 01/15/19 01/15/19 17:45 17:45 WBC 14.32 H Neut # (Auto) 13.21 H Creatinine 1.02 Est Cr Clr Drug Dosing 72.9 Micro Results: 01/15/19 20:04 Aerobic Blood Culture - Pending Blood Anaerobic Blood Culture - Pending 01/15/19 20:04 Aerobic Blood Culture - Pending Blood Anaerobic Blood Culture - Pending - Risk Factors for Resistance * Resident in a prison or extended-care facility * CHEST TUBES FOR PLEURAL EFFUSIONS - Assessment & Plan Assessment 73 year old M ADMITTED WITH DIFFICULTY BREATHING Plan VANCOMYCIN/ZOSYN for treatment of PNEUMONIA Vancomycin IV * Estimated PK Parameters: Vd 0.7 L/kg, Dequan 0.065 hr-1, t1/2 10.66 hr * Loading dose: 1750 mg (20 mg/kg) * Maintenance dose: 1250 mg IV (15 mg/kg) every 12 hours (START SLIGHTLY EARLY ONLY 20 MG/KG GIVEN) * Goal trough level for PULMONARY INFECTION : 15 to 20 mcg/mL * Trough ordered for 01/17/19 Piperacillin/tazobactam * 4.5 g bolus administered over 30 minutes, then 3.375 g IV extended infusion every 8 hours for CrCl greater than 20 mL/min Pharmacy will continue to follow and will adjust dose/frequency as necessary. Thank you.
[2019-01-16] MEDS ORDERED: INSULIN GLARGINE SOLOSTAR 100 UNITS/ML 3 ML PEN SQ SCH (01:00)
[2019-01-16] MEDS ORDERED: HydrALAZINE 10 MG TAB PO SCH (01:00)
[2019-01-16] MEDS ORDERED: AMLODIPINE BESYLATE 5 MG TAB PO ONE (01:00)
[2019-01-16 01:22] LABS: Partial Thromboplastin Ratio 1.1; Partial Thromboplastin Time 28.8 Seconds (21.0-31.0)
[2019-01-16] MEDS: HEPARIN SODIUM/DEXTROSE 25,000 UNITS/500 ML BAG IV SCH ×2 (01:32→15:53)
[2019-01-16] MEDS: PIPERACILLIN/TAZOBACTAM 3.375 GM in DEXTROSE 5% 100 ML IV SCH ×3 (01:53→17:29)
[2019-01-16] MEDS: HydrALAZINE 10 MG TAB PO SCH ×4 (01:55→21:30)
[2019-01-16] MEDS: THEOPHYLLINE 300MG EXTENDED REL TAB PO SCH ×3 (01:55→21:31)
[2019-01-16 06:35] LABS: Estimated Average Glucose 128 mg/dl; Hemoglobin A1C 6.1 % (4.5-5.6)
[2019-01-16 07:26] LABS: Basophils # (auto) 0.01 K/uL (0-0.2); Basophils % (auto) 0.1 %; Hematocrit (blood only) 36.6 % (42-52); Immature Granulocytes # (auto) 0.03 K/uL (0.00-0.02); Immature Granulocytes % (auto) 0.3 %; Lymphocytes # (auto) 0.28 K/uL (1.2-3.4); Lymphocytes % (auto) 2.8 %; Mean Corpuscular Hemoglobin 24.7 pg (25-34); Mean Corpuscular Hgb Conc 30.1 g/dL (32-36); Mean Corpuscular Volume 82.2 fL (80-100); Mean Platelet Volume 8.6 fL (7.4-10.4); Neutrophils # (auto) 9.51 K/uL (1.4-6.5); Neutrophils % (auto) 93.8 %; Platelet Count 123 K/uL (130-400); RDW Coefficient of Variation 20.5 % (11.5-14.5); Red Blood Count 4.45 M/uL (4.7-6.1); White Blood Count 10.13 K/uL (4.8-10.8)
[2019-01-16 07:37] LABS: Partial Thromboplastin Ratio 1.4; Partial Thromboplastin Time 37.9 Seconds (21.0-31.0)
[2019-01-16 07:47] LABS: Anisocytosis Present; Ovalocytes 1+
[2019-01-16] MEDS: FOLIC ACID 1 MG TAB PO SCH (07:48)
[2019-01-16] MEDS: predniSONE 20 MG TAB PO SCH (07:49)
[2019-01-16] MEDS: AMLODIPINE BESYLATE 5 MG TAB PO SCH (07:49)
[2019-01-16] MEDS: TAMSULOSIN HCL 0.4 MG CAP PO SCH (07:49)
[2019-01-16] MEDS: PANTOprazole 40 MG TAB PO SCH (07:50)
[2019-01-16] MEDS: FUROSEMIDE 40 MG in SYRINGE 0 ML IV SCH ×2 (07:51→21:29)
[2019-01-16 07:55] LABS: BUN Creatinine Ratio 32.2 (10-20); Calcium 8.8 mg/dl (8.5-10.1); Creatinine Clr Calc Pharmacy 72.2 ml/min; Est GFR (African American) 84.3; Est GFR (Non-African American) 72.7; Potassium 4.4 mmol/L (3.5-5.1)
[2019-01-16] MEDS: VANCOMYCIN HCL 1,250 MG in SODIUM CHLORIDE 0.9% 250 ML IV SCH ×2 (07:56→19:45)
[2019-01-16] MEDS ORDERED: INFLUENZA VIRUS QUAD VACCINE 0.5 ML SYR IM ONE (08:00)
[2019-01-16] MEDS ORDERED: HEPARIN IV BOLUS 7,000 UNITS in SYRINGE 0 ML IV ONE (08:00)
[2019-01-16] MEDS ORDERED: INFLUENZA ADMINISTRATION CHARGE ONE (08:00)
[2019-01-16 08:05] LABS: Thyroid Stimulating Hormone 8.66 uIu/ml (0.300-4.500)
[2019-01-16] MEDS ORDERED: predniSONE 20 MG TAB PO SCH (09:00)
--- NOTE | 2019-01-16 09:41 | Cardiology Consultation ---
Date of Consultation January 16, 2019 Assessment & Plan (1) Bradycardia: Patient has a junctional bradycardia present on EKG and telemetry. Arrhythmias been present for more than 1 week if not greater with patient undergoing past evaluation during hospitalization and deemed not a candidate for pacemaker insertion given extremely poor prognosis of underlying malignancy with malignant pleural effusion Presentation reflects evidence of volume overload, mixed diastolic heart failure with probable component of anasarca secondary to have profound hypoalbuminemia Patient has made significant urine outputs with IV Lasix Would continue IV diuretics for now, hold after p.m. dose today. Exam does not suggest profound intravascular volume overload Continue theophylline supplementation to aid in heart rate will increase dose today Palliative care and CODE STATUS to be addressed overall prognosis grim History of Present Illness Reason for Consultation: Marked bradycardia Requesting Physician: Dr Duque Attending Physician: Lasha Duque MD History of Present Illness Patient is a 73-year-old male with no prior admissions to this institution. Limited records are available with patient poor historian In summary patient noted records to have a history of paroxysmal atrial fibrillation, hypertension, chronic anemia and renal failure. 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 Effusions were managed with indwelling Pleurx catheter He has had convoluted recent course and was hospitalized at [facility] until 01/08/2019. Patient noted to be bradycardic during that hospitalization per reports and cardiology consult deferred pacemaker insertion due to poor prognosis from underlying malignancy EKG 1 week ago demonstrated junctional bradycardia at 35 bpm Patient referred this admission from extended care facility with hypoxia and cough EKG on presentation once again junctional bradycardia. Exam consistent with anasarca, volume overload Allergies Allergy/AdvReac Type Severity Reaction Status Date / Time hepatitis B immune globulin AdvReac Unknown Unverified 01/15/19 18:24 losartan AdvReac hyperkalemi Verified 01/16/19 05:06 a Home Medications Home Medications Medication Instructions Recorded Confirmed Type acetaminophen 650 mg PO Q6H PRN MDD 3G 01/10/19 01/15/19 History acetaminophen 650 mg PO Q6H PRN MDD 3G 01/10/19 01/15/19 History amlodipine 5 mg PO DAILY 01/10/19 01/15/19 History apixaban [Eliquis] 5 mg PO DAILY 01/10/19 01/15/19 History bisacodyl 10 mg OK DAILY PRN 01/10/19 01/15/19 History cyanocobalamin (vitamin B-12) 1,000 mcg PO DAILY 01/10/19 01/15/19 History folic acid 1 mg PO DAILY 01/10/19 01/15/19 History hydralazine 10 mg PO BID 01/10/19 01/15/19 History ipratropium-albuterol 3 ml INHALATION Q4H PRN 01/10/19 01/15/19 History magnesium hydroxide [Milk of 30 ml PO HS PRN 01/10/19 01/15/19 History Magnesia] oxycodone-acetaminophen [Percocet] 1 tab PO Q4H PRN 01/10/19 01/15/19 History oxycodone-acetaminophen [Percocet] 2 tab PO Q4 PRN 01/10/19 01/15/19 History pantoprazole [Protonix] 40 mg PO DAILY 01/10/19 01/15/19 History prednisone 20 mg PO DAILY 01/10/19 01/15/19 History pseudoephedrine-guaifenesin 1 tab PO Q12H PRN 01/10/19 01/15/19 History [Mucinex D] tamsulosin 0.4 mg PO DAILY 01/10/19 01/15/19 History Patient History Medical History CHF (congestive heart failure) HTN (hypertension) Hydronephrosis, right Lung cancer Paroxysmal A-fib Pleural effusion, left Family History Other Family history non-contributory Social History Preferred Language: Peruvian Communication Ability: Effective Crisis Clinician Required: No Beliefs That Will Affect Care: None marital status: Single Current Living Situation: Skilled Nursing current occupational status: retired Other Information That Helps Us Care for You: No Feels Safe at Home: Yes Safety Concerns: Afraid for Self Smoking Status: Former smoker Do You Dip or Chew Tobacco: No ; Second Hand Exposure: No ; Tobacco Cessation Education Requested by Patient: No Hx Alcohol Use: No Hx Substance Use: No Physical Exam Constitutional: + ill appearing and + cachectic Neck: trachea midline, no thyromegaly Respiratory: Auscultation: + diminished lung sounds Chest tube left chest Cardiovascular: Rate/Rhythm: + bradycardic Heart Sounds: + murmur (Grade 1- 2 or 6 systolic ejection murmur, no diastolic) Extremities: + edema (1-2+ doughy edema) Gastrointestinal (Abdomen): Percussion/Palpation: abdomen soft Results & Data Vital Signs (Past 12 Hours) Vital Signs Temp Pulse Pulse Pulse Resp BP BP 01/16/19 07:25 33 L 01/16/19 07:07 36.5 C 34 L 16 120/56 L 01/16/19 06:57 37 L 16 01/16/19 04:09 35 L 18 01/16/19 03:16 36.8 C 34 L 18 119/63 01/16/19 00:36 35 L 18 01/15/19 23:20 36.3 C L 36 L 26 H 01/15/19 22:31 37 L 19 197/86 H 01/15/19 22:00 38 L 19 BP Pulse Ox 01/16/19 07:25 01/16/19 07:07 99 01/16/19 06:57 98 01/16/19 04:09 97 01/16/19 03:16 97 01/16/19 00:36 100 01/15/19 23:20 190/79 H 96 01/15/19 22:31 01/15/19 22:00 Laboratory Results Laboratory Results - last 24 hr 01/15/19 01/15/19 01/15/19 17:45 17:45 20:04 WBC 14.32 H RBC 4.45 L Hgb 11.3 L Hct 37.2 L MCV 83.6 MCH 25.4 MCHC 30.4 L RDW Std Deviation 63.8 H RDW Coeff of Brenda 21.0 H Plt Count 170 MPV 9.6 Immature Gran % (Auto) 0.4 Neut % (Auto) 92.2 Lymph % (Auto) 1.7 [place] % (Auto) 5.4 Eos % (Auto) 0.2 Baso % (Auto) 0.1 Immature Gran # (Auto) 0.06 H Neut # (Auto) 13.21 H Lymph # (Auto) 0.24 L [place] # (Auto) 0.77 H Eos # (Auto) 0.03 Baso # (Auto) 0.01 Hypochromasia Present Anisocytosis Ovalocytes 1+ Echinocytes 2+ APTT PTT Ratio ABG pH ABG pCO2 ABG pO2 ABG HCO3 ABG O2 Saturation ABG Base Excess Gerald Test Barometric Pressure Oxygen Given Sodium 138 Potassium 5.0 Chloride 101 Carbon Dioxide 33 H Anion Gap 4.0 BUN 35 H Creatinine 1.02 Est Cr Clr Drug Dosing 72.9 Est GFR ( Amer) 85.3 Est GFR (Non-Af Amer) 73.6 BUN/Creatinine Ratio 34.3 H Glucose 123 H POC Glucose Estimat Average Glucose Hemoglobin A1c Lactate Calcium 8.9 Magnesium 2.1 Total Bilirubin 0.5 AST 32 ALT 48 Alkaline Phosphatase 154 H Troponin I < 0.015 NT-Pro-B Natriuret Pep 2971 H Total Protein 5.9 L Albumin 2.2 L Globulin 3.7 Albumin/Globulin Ratio 0.6 L TSH 11.000 H Free T4 0.86 Specimen Hemolysis Urine Color Urine Appearance Urine pH Ur Specific [place] Urine Protein Urine Glucose (UA) Urine Ketones Urine Blood Urine Nitrite Urine Bilirubin Urine Urobilinogen Ur Leukocyte Esterase Urine WBC (Auto) Urine RBC (Auto) U Hyaline Cast (Auto) U Epithel Cells (Auto) Urine Bacteria (Auto) Ur Renal Epithelial Cell Urine Crystals Uric Acid Crystals Granular Casts Urine Mucus Nasal Screen MRSA (PCR) 01/15/19 01/15/19 01/15/19 20:04 20:04 20:04 WBC RBC Hgb Hct MCV MCH MCHC RDW Std Deviation RDW Coeff of Brenda Plt Count MPV Immature Gran % (Auto) Neut % (Auto) Lymph % (Auto) [place] % (Auto) Eos % (Auto) Baso % (Auto) Immature Gran # (Auto) Neut # (Auto) Lymph # (Auto) [place] # (Auto) Eos # (Auto) Baso # (Auto) Hypochromasia Anisocytosis Ovalocytes Echinocytes APTT PTT Ratio ABG pH 7.43 ABG pCO2 49 H ABG pO2 105 H ABG HCO3 32 H ABG O2 Saturation 97.9 H ABG Base Excess 6.9 H Gerald Test Pos Barometric Pressure 736.4 Oxygen Given 4 L Sodium Potassium Chloride Carbon Dioxide Anion Gap BUN Creatinine Est Cr Clr Drug Dosing Est GFR ( Amer) Est GFR (Non-Af Amer) BUN/Creatinine Ratio Glucose POC Glucose Estimat Average Glucose 128 Hemoglobin A1c 6.1 H Lactate 1.1 Calcium Magnesium Total Bilirubin AST ALT Alkaline Phosphatase Troponin I NT-Pro-B Natriuret Pep Total Protein Albumin Globulin Albumin/Globulin Ratio TSH Free T4 Specimen Hemolysis Urine Color Urine Appearance Urine pH Ur Specific [place] Urine Protein Urine Glucose (UA) Urine Ketones Urine Blood Urine Nitrite Urine Bilirubin Urine Urobilinogen Ur Leukocyte Esterase Urine WBC (Auto) Urine RBC (Auto) U Hyaline Cast (Auto) U Epithel Cells (Auto) Urine Bacteria (Auto) Ur Renal Epithelial Cell Urine Crystals Uric Acid Crystals Granular Casts Urine Mucus Nasal Screen MRSA (PCR) 01/15/19 01/16/19 01/16/19 21:15 00:32 00:56 WBC RBC Hgb Hct MCV MCH MCHC RDW Std Deviation RDW Coeff of Brenda Plt Count MPV Immature Gran % (Auto) Neut % (Auto) Lymph % (Auto) [place] % (Auto) Eos % (Auto) Baso % (Auto) Immature Gran # (Auto) Neut # (Auto) Lymph # (Auto) [place] # (Auto) Eos # (Auto) Baso # (Auto) Hypochromasia Anisocytosis Ovalocytes Echinocytes APTT 28.8 PTT Ratio 1.1 ABG pH ABG pCO2 ABG pO2 ABG HCO3 ABG O2 Saturation ABG Base Excess Gerald Test Barometric Pressure Oxygen Given Sodium Potassium Chloride Carbon Dioxide Anion Gap BUN Creatinine Est Cr Clr Drug Dosing Est GFR ( Amer) Est GFR (Non-Af Amer) BUN/Creatinine Ratio Glucose POC Glucose 99 Estimat Average Glucose Hemoglobin A1c Lactate Calcium Magnesium Total Bilirubin AST ALT Alkaline Phosphatase Troponin I NT-Pro-B Natriuret Pep Total Protein Albumin Globulin Albumin/Globulin Ratio TSH Free T4 Specimen Hemolysis Urine Color Yellow Urine Appearance Turbid A Urine pH 5.0 Ur Specific [place] 1.022 Urine Protein Negative Urine Glucose (UA) Negative Urine Ketones Negative Urine Blood 3+ H Urine Nitrite Negative Urine Bilirubin Negative Urine Urobilinogen Negative Ur Leukocyte Esterase 2+ H Urine WBC (Auto) 1-5 Urine RBC (Auto) 5-10 H U Hyaline Cast (Auto) 5-10 H U Epithel Cells (Auto) >30 H Urine Bacteria (Auto) Negative Ur Renal Epithelial Cell 0-5 Urine Crystals Uric Acid A Uric Acid Crystals Present A Granular Casts 1-5 H Urine Mucus Present A Nasal Screen MRSA (PCR) 01/16/19 01/16/19 01/16/19 01:20 07:17 07:17 WBC 10.13 RBC 4.45 L Hgb 11.0 L Hct 36.6 L MCV 82.2 MCH 24.7 L MCHC 30.1 L RDW Std Deviation 61.0 H RDW Coeff of Brenda 20.5 H Plt Count 123 L MPV 8.6 Immature Gran % (Auto) 0.3 Neut % (Auto) 93.8 Lymph % (Auto) 2.8 [place] % (Auto) 3.0 Eos % (Auto) 0.0 Baso % (Auto) 0.1 Immature Gran # (Auto) 0.03 H Neut # (Auto) 9.51 H Lymph # (Auto) 0.28 L [place] # (Auto) 0.30 Eos # (Auto) 0.00 Baso # (Auto) 0.01 Hypochromasia Anisocytosis Present Ovalocytes 1+ Echinocytes APTT PTT Ratio ABG pH ABG pCO2 ABG pO2 ABG HCO3 ABG O2 Saturation ABG Base Excess Gerald Test Barometric Pressure Oxygen Given Sodium 138 Potassium 4.4 Chloride 100 Carbon Dioxide 33 H Anion Gap 5.0 BUN 33 H Creatinine 1.03 Est Cr Clr Drug Dosing 72.2 Est GFR ( Amer) 84.3 Est GFR (Non-Af Amer) 72.7 BUN/Creatinine Ratio 32.2 H Glucose 128 H POC Glucose Estimat Average Glucose Hemoglobin A1c Lactate Calcium 8.8 Magnesium Total Bilirubin AST ALT Alkaline Phosphatase Troponin I NT-Pro-B Natriuret Pep Total Protein Albumin Globulin Albumin/Globulin Ratio TSH 8.660 H Free T4 Specimen Hemolysis Urine Color Urine Appearance Urine pH Ur Specific [place] Urine Protein Urine Glucose (UA) Urine Ketones Urine Blood Urine Nitrite Urine Bilirubin Urine Urobilinogen Ur Leukocyte Esterase Urine WBC (Auto) Urine RBC (Auto) U Hyaline Cast (Auto) U Epithel Cells (Auto) Urine Bacteria (Auto) Ur Renal Epithelial Cell Urine Crystals Uric Acid Crystals Granular Casts Urine Mucus Nasal Screen MRSA (PCR) Negative 01/16/19 07:17 WBC RBC Hgb Hct MCV MCH MCHC RDW Std Deviation RDW Coeff of Brenda Plt Count MPV Immature Gran % (Auto) Neut % (Auto) Lymph % (Auto) [place] % (Auto) Eos % (Auto) Baso % (Auto) Immature Gran # (Auto) Neut # (Auto) Lymph # (Auto) [place] # (Auto) Eos # (Auto) Baso # (Auto) Hypochromasia Anisocytosis Ovalocytes Echinocytes APTT 37.9 H PTT Ratio 1.4 ABG pH ABG pCO2 ABG pO2 ABG HCO3 ABG O2 Saturation ABG Base Excess Gerald Test Barometric Pressure Oxygen Given Sodium Potassium Chloride Carbon Dioxide Anion Gap BUN Creatinine Est Cr Clr Drug Dosing Est GFR ( Amer) Est GFR (Non-Af Amer) BUN/Creatinine Ratio Glucose POC Glucose Estimat Average Glucose Hemoglobin A1c Lactate Calcium Magnesium Total Bilirubin AST ALT Alkaline Phosphatase Troponin I NT-Pro-B Natriuret Pep Total Protein Albumin Globulin Albumin/Globulin Ratio TSH Free T4 Specimen Hemolysis Urine Color Urine Appearance Urine pH Ur Specific [place] Urine Protein Urine Glucose (UA) Urine Ketones Urine Blood Urine Nitrite Urine Bilirubin Urine Urobilinogen Ur Leukocyte Esterase Urine WBC (Auto) Urine RBC (Auto) U Hyaline Cast (Auto) U Epithel Cells (Auto) Urine Bacteria (Auto) Ur Renal Epithelial Cell Urine Crystals Uric Acid Crystals Granular Casts Urine Mucus Nasal Screen MRSA (PCR)
[2019-01-16] MEDS ORDERED: THEOPHYLLINE 300MG EXTENDED REL TAB PO STA (10:11)
--- NOTE | 2019-01-16 10:33 | Hospitalist Progress Note ---
Date of Service January 16, 2019 Assessment & Plan (1) Acute and chronic respiratory failure: (2) Malignant pleural effusion: (3) Pneumonia: Present on admission with worsening SOB S/P chest tube placement CT chest extensive peribronchovascular consolidation most prominently in the lower lobes though also to varying degrees throughout the remaining lobes. Extensive endobronchial debris in the lower lobes, which may represent mucous plugging, aspiration, or infectious debris. Bilateral pleural effusions, loculated on the left with pleural drains in place. CXR showed cardiomegaly with evidence of congestive failure. Continue lasix IV BID Pulmonology on board Continue oxygen supplement, Neb treatment Speech eval, plan to get a video swallow test today Diastolic CHF Evidence of fluid overload mostly due to anasarca due to profound hypoalbuminemia CXR showed cardiomegaly with evidence of congestive heart failure. Continue IV lasix BID Monitor I/O Lung Cancer Malignant pleural effusion Recently diagnosed in 08/04 with lung cancer (SCLC as per [facility] Records, squamous cell carcinoma as per [facility] records) Will request document from [facility] Will consult Oncology since pt needs to know his option and treatment (place consult for oncology after receiving document from [facility]) Palliative care consult Bradycardia Last admission at [facility] not a candidate for pacemaker insertion given extremely poor prognosis of underlying malignancy with malignant pleural effusion Cardiology on board and agreed that pt not a good candidate for pacemaker due to poor prognosis Theophylline to help with the heart rate Continue monitor in tele Paroxysmal Afib Heart rate has been running low Eliquis on hold in case pt will need procedure On heparin drip for now Stable DVT px on heparin drip for now CODE STATUS FULL CODE Subjective Pt was seen and examined Lying in bed with no distress with mild respiratory distress Pt said that his breathing feels a little better today compared to when he came He said that the reason he did not follow up with oncology was because his insurance was only good for 10 days Currently denies any chest pain, palpitation, dizziness and fever Physical Exam Physical Exam: General- No acute distress Head- atraumatic Eyes- PERRL, EOMI, ENT- oropharynx clear Neck- supple, no JVD Lungs- decrease breath sound, left sided chest tube Heart- +bradycardia, +murmur Abdomen- normal bowel sounds, soft, nontender Extremities- no calf tenderness, +edema Neuro- alert, oriented x 3; PERRL, EOMI; no facial palsy; no dysarthria Skin- warm & dry Results & Data Vital Signs (Past 12 Hours) Vital Signs Temp Pulse Pulse Pulse Resp BP BP 01/16/19 07:25 33 L 01/16/19 07:07 36.5 C 34 L 16 120/56 L 01/16/19 06:57 37 L 16 01/16/19 04:09 35 L 18 01/16/19 03:16 36.8 C 34 L 18 119/63 01/16/19 00:36 35 L 18 01/15/19 23:20 36.3 C L 36 L 26 H 01/15/19 22:31 37 L 19 197/86 H BP Pulse Ox 01/16/19 07:25 01/16/19 07:07 99 01/16/19 06:57 98 01/16/19 04:09 97 01/16/19 03:16 97 01/16/19 00:36 100 01/15/19 23:20 190/79 H 96 01/15/19 22:31
--- NOTE | 2019-01-16 11:28 | Procedure Note ---
Procedure Note Date of Service January 16, 2019 Note Procedure: Drain left sided PleurX catheter Narrative: Left sided Pleurx catheter in place. Dressing taken down catheter exposed. No erythema around insertion site. Using clean technique, a PleurX catheter bottle and kit was used to access the catheter. A total of 10 mL of straw colored fluid was removed. There was evidence of movement of fluid and air within he tubing when suction was applied. Both the PleurX catheter and the chest tube were secured and dressing was placed. There were no complications with the procedure. The patient tolerated the procedure well. Coding
--- NOTE | 2019-01-16 12:04 | Fluoroscopy Report ---
FL video swallow HISTORY: Pneumonia. assess for aspiration TECHNIQUE: Video fluoroscopic evaluation of swallowing was performed in the AP and lateral projection s by the speech pathology staff. The patient is fed nectar-thick and thin liquid barium, a barium coa julia wafer, and barium pudding. FLUOROSCOPY TIME: 2.9 minutes. A cine loop submitted. COMPARISON STUDY: None. FINDINGS: Small amount of aspiration was demonstrated during the serial swallows of the thin liquid b arium. This resulted in a cough. No aspiration identified with the nectar thick liquid barium, barium pudding, or barium coated cracker. Mild to moderate vallecular residue with the thicker barium consi stencies. IMPRESSION: 1. Small amount of aspiration demonstrated during the serial swallows of the thin liquid barium. 2. Please see the speech pathologist report for detailed findings and recommendations. Electronically signed by: Owen Cedeno M.D. 01/16/2019 12:03 PM
[2019-01-16 14:35] LABS: Partial Thromboplastin Ratio 2.5
[2019-01-16 14:38] LABS: Partial Thromboplastin Time 67.8 Seconds (21.0-31.0)
--- NOTE | 2019-01-16 16:04 | Palliative Care Consultation ---
Date of Consultation January 16, 2019 Assessment & Plan (1) Goals of care, counseling/discussion: Patient is a 73-year-old male with a past medical history of paroxysmal A. fib with bradycardia, COPD, squamous cell lung cancer diagnosed in July of this year in the left upper lobe, hypertension, HLD, GERD, BPH, and CHF. Patient was diagnosed with squamous cell lung cancer in July 2018 when he was having significant shortness of breath. Patient did not follow-up with oncology at that point. Patient reports that the [facility] of [facility] had center nurse after his landlord had made a referral-on their first visit on December 25 they noticed severe shortness of breath and he was sent to [facility]. Patient was hospitalized there from 12/1009. During that hospitalization he underwent a pleurectomy, chest tube placement, bronchoscopy, EGD, and thoracoscopy. Patient was then discharged to the [facility] for rehab. Patient states he was making progress and able to ambulate until this admission. Patient was having increased shortness of breath and was sent to the ER. Patient states his shortness of breath has improved since admission. Patient states he has 4 children, he has not had any contact with him. His last contact with his youngest son was when he retired at age 67. He does not know where they are located at this time. Patient lives in the [facility] alone. Patient states his POA is Jarrod Monk, who is a friend and distant relative -his contact number is [phone]. Patient states he does not have paperwork stating that Jarrod is his POA-put in a consult for service excellence to meet with patient and have appropriate paperwork signed. Patient is , did smoke 2 packs a day since age 25, had cut down to approximately 1 pack/day before he quit approximately 1 month ago. Patient has a greater than 90 pack year history. Patient states his prior weight was 211 pounds, he had dropped down to 160 pounds. Patient's weight on admission was 200 pounds-patient has significant anasarca-patient not aware that he had lower extremity edema, not sure what patient's dry weight is. Patient stated the only time he is aware of his A. fib's with bradycardia is when he has to go up steps carrying his groceries. Patient reports he does not know anything about his cancer prognosis. He stated he had a friend who with lung cancer who is now in remission. Patient wants to start chemotherapy-but has not followed up with oncology since diagnosis in July.. Would appreciate oncology input regarding treatment options as well as prognosis so we can have further discussions regarding goals of care. Patient states that this time he would want everything done "if it would help". Patient agreeable to have further discussions regarding CODE STATUS and goals of care once he has a better idea of his prognosis and treatment options regarding his cancer. -Goals of care-patient at this point would want everything done, until we can have further discussions once oncology weighs in on his treatment options and prognosis -Respiratory failure with hypoxia-improving on IV Lasix, adequate saturations on 2 L. Continue IV antibiotics and prednisone. Pleural effusions and COPD contributing -Squamous cell lung cancer-diagnosed in July 2018 in the left upper lobe, would appreciate oncology input and discussion with patient regarding treatment options and prognosis -Malignant pleural effusions-patient with Pleurx drains in place on the left -Bradycardia-A. fib with bradycardia, patient seen by cardiology and recommended to start theophylline. Has not received his first dose yet, heart rate 42. Will continue to follow and assist patient with medical decision making (2) Acute hypoxemic respiratory failure: (3) Squamous cell lung cancer: (4) Malignant pleural effusion: (5) Bradycardia: History of Present Illness Reason for Consultation: Address CODE STATUS and goals of care Requesting Physician: Dr Lasha Duque MD Attending Physician: Lasha Duque MD History of Present Illness Patient is a 73-year-old male with a past medical history of paroxysmal A. fib with bradycardia, COPD, squamous cell lung cancer diagnosed in July of this year in the left upper lobe, hypertension, HLD, GERD, BPH, and CHF. Patient was diagnosed with squamous cell lung cancer in July 2018 when he was having significant shortness of breath. Patient did not follow-up with oncology at that point. Patient reports that the Department of aging had center nurse after his landlord had made a referral-on their first visit on December 25 they noticed severe shortness of breath and he was sent to [facility]. Patient was hospitalized there from 12/1009. During that hospitalization he underwent a pleurectomy, chest tube placement, bronchoscopy, EGD, and thoracoscopy. Patient was then discharged to the [facility] for rehab. Patient states he was making progress and able to ambulate until this admission. Patient was having increased shortness of breath and was sent to the ER. Patient states his shortness of breath has improved since admission. Patient states he has 4 children, he has not had any contact with him. His last contact with his youngest son was when he retired at age 67. He does not know where they are located at this time. Patient lives in the [facility] alone. Patient states his POA is Jarrod Monk, who is a friend and distant relative -his contact number is [phone]. Patient states he does not have paperwork stating that Jarrod is his POA-put in a consult for service excellence to meet with patient and have appropriate paperwork signed. Patient is , did smoke 2 packs a day since age 25, had cut down to approximately 1 pack/day before he quit approximately 1 month ago. Patient has a greater than 90 pack year history. Patient states his prior weight was 211 pounds, he had dropped down to 160 pounds. Patient's weight on admission was 200 pounds-patient has significant anasarca, not sure what patient's dry weight is. Patient reports he does not know anything about his cancer prognosis. He stated he had a friend who with lung cancer who is now in remission. Patient wants to start chemotherapy-but has not followed up with oncology since diagnosis. Would appreciate oncology input regarding treatment options as well as prognosis so we can have further discussions regarding goals of care. Patient states that this time he would want everything done "if it would help". Patient agreeable to have further discussions regarding CODE STATUS and goals of care once he has a better idea of his prognosis and treatment options regarding his cancer. Allergies Allergy/AdvReac Type Severity Reaction Status Date / Time hepatitis B immune globulin AdvReac Unknown Unverified 01/15/19 18:24 losartan AdvReac hyperkalemi Verified 01/16/19 05:06 a Home Medications Home Medications Medication Instructions Recorded Confirmed Type acetaminophen 650 mg PO Q6H PRN MDD 3G 01/10/19 01/15/19 History acetaminophen 650 mg PO Q6H PRN MDD 3G 01/10/19 01/15/19 History amlodipine 5 mg PO DAILY 01/10/19 01/15/19 History apixaban [Eliquis] 5 mg PO DAILY 01/10/19 01/15/19 History bisacodyl 10 mg DE DAILY PRN 01/10/19 01/15/19 History cyanocobalamin (vitamin B-12) 1,000 mcg PO DAILY 01/10/19 01/15/19 History folic acid 1 mg PO DAILY 01/10/19 01/15/19 History hydralazine 10 mg PO BID 01/10/19 01/15/19 History ipratropium-albuterol 3 ml INHALATION Q4H PRN 01/10/19 01/15/19 History magnesium hydroxide [Milk of 30 ml PO HS PRN 01/10/19 01/15/19 History Magnesia] oxycodone-acetaminophen [Percocet] 1 tab PO Q4H PRN 01/10/19 01/15/19 History oxycodone-acetaminophen [Percocet] 2 tab PO Q4 PRN 01/10/19 01/15/19 History pantoprazole [Protonix] 40 mg PO DAILY 01/10/19 01/15/19 History prednisone 20 mg PO DAILY 01/10/19 01/15/19 History pseudoephedrine-guaifenesin 1 tab PO Q12H PRN 01/10/19 01/15/19 History [Mucinex D] tamsulosin 0.4 mg PO DAILY 01/10/19 01/15/19 History Patient History Medical History CHF (congestive heart failure) HTN (hypertension) Hydronephrosis, right Lung cancer Paroxysmal A-fib Pleural effusion, left Family History Other Family history non-contributory Social History Preferred Language: Thai Communication Ability: Effective Electronics Department Manager Required: No Beliefs That Will Affect Care: None marital status: Single Current Living Situation: [facility] current occupational status: retired Other Information That Helps Us Care for You: No Feels Safe at Home: Yes Safety Concerns: Afraid for Self Smoking Status: Former smoker Do You Dip or Chew Tobacco: No ; Second Hand Exposure: No ; Tobacco Cessation Education Requested by Patient: No Hx Alcohol Use: No Hx Substance Use: No Review of Systems Review of Systems: Patient denies fever, chills, chest pain or abdominal pain Patient states his shortness of breath is markedly improved-near his prior ba nisha. Patient denies any dysuria or constipation, patient was not aware of his lower extremity edema/anasarca. Physical Exam Physical Exam: PE: Patient awake and alert HEENT: EOMI, hearing within normal limits Respiratory: Shortness of breath-only able to say 2-3 words between breaths, loose productive cough, diminished breath sounds bilaterally, wet rhonchi bilateral bases. Left chest tubes in place CV: Bradycardia, lower extremity 3+ edema with anasarca Abdomen: Soft, nontender, pitting edema abdominal wall Extremities: 3+ edema Neuro: Generalized weakness, no focal deficits. Results & Data Vital Signs (Past 12 Hours) Vital Signs Temp Pulse Pulse Pulse Pulse Resp BP 01/16/19 15:07 42 L 20 01/16/19 14:00 97.5 F L 41 L 18 156/76 H 01/16/19 10:58 36 L 16 01/16/19 07:25 33 L 01/16/19 07:07 97.7 F 34 L 16 120/56 L 01/16/19 06:57 37 L 16 01/16/19 04:09 35 L 18 Pulse Ox 01/16/19 15:07 96 01/16/19 14:00 01/16/19 10:58 97 01/16/19 07:25 01/16/19 07:07 99 01/16/19 06:57 98 01/16/19 04:09 97 PG Care Time/CCT Total # of Minutes Spent Total Time Spent with Patient: Total time spent is greater than 50% in coordination of care (as documented) at patient's floor/unit and/or counseling p atient: Time Spent Attending Total time spent 70 minutes with greater than 50% of time spent at bedside discussing patient's current medical condition, reviewing his past medical history and initiating discussing regarding CODE STATUS and goals of care.
--- NOTE | 2019-01-16 16:23 | Pulmonary Consultation ---
Date of Consultation January 16, 2019 Assessment & Plan (1) Squamous cell lung cancer: Patient apparently diagnosed in July 2018 Was unable to pursue care secondary to insurance issues Since that time patient had development of bilateral pleural effusions and had a chest tube as well as Pleurx catheter placed in the left at [facility] Pleurx was attempted to be drained this morning with only 10 mL of straw-colored fluid Unclear as to why there is a chest tube and a Pleurx catheter on the left Records requested from [facility] We will continue to manage chest tubes pending disposition Oncology consulted for further management (2) Complication of chest tube: Patient apparently discharge to [facility] with no staff to manage chest tubes On arrival patient had a Rula Pleur-evac which was overflowing Rula was replaced in the emergency department with 50 cc of additional fluid I attempted to drain the Pleurx catheter this morning with minimal output We will continue to manage chest tubes until disposition determined Encounter type: initial encounter Qualified Code(s): T85.9XXA - Unspecified complication of internal prosthetic device, implant and graft, initial encounter (3) Pleural effusion: Loculated pleural effusion secondary to malignancy Previous thoracentesis with report of malignant fluid Outside records requested Chest tube as well as Pleurx catheter currently on the left Continue to follow pending disposition of oncology and transfer back to [facility] Thank you for including us in the care of this patient Please refer to Dr. Barriga's addendum for further recommendations Supervising Physician Co-Signing Physician Notes I saw and evaluated the patient with Mike Anderson, and agree with findings and plan as documented in the note. Patient is a very poor historian. States that he is here he was diagnosed with cancer in July 2018 but nobody told him about the diagnosis. Never followed up with an oncologist for therapy. CT chest reviewed. There is extensive left upper lobe masslike lesion likely cancer, questionable squamous cell. Need to get records from [facility] but all the work-up was done. We can send the pleural fluid for cytology. Palliative care consult should be considered. Regarding chest tube on the left side along with the Pleurx catheter. We do not know the reason why he has chest tube and a Pleurx catheter. There is minimal fluid on the left side. We will see how much fluid collections from the chest tube by tomorrow. If it is less than 120 cc will DC the chest tube as patient has Pleurx. Recommend Spiriva for his COPD. Unsure why he is on theophylline, would like to discontinue with along with steroids and if there is no good indication. History of Present Illness Reason for Consultation: Evaluate chest tubes as well as probable lung cancer Attending Physician: Lasha Duque MD History of Present Illness Attending: Dr. Barriga This is a 73-year-old male that presents from [facility] rehab status post discharge there from [facility].Patient reports that he has lung cancer that was diagnosed there and received a chest tube and Pleurx catheter in the middle of December.He reportedly was transferred to [facility] for rehab where he was found that they did not have the equipment to manage the patient's chest tubes.Although the story is unclear it appears as though the patient had a Rula in place and it filled up in the nursing staff had no ability to manage the chest tube.Patient also has a Pleurx catheter on the same side (left) which [facility] staff did not know how to manage his as well.Records have been requested.On arrival in the emergency department the Rula Pleur-evac was changed and quickly had about 50 cc of fluid.Valuation of the Rula now reveals it is on waterseal.There is no evidence of air leak Patient has a past medical history of congestive heart failure with no known echo results, hypertension, history of right hydronephrosis, paroxysmal atrial fibrillation, and left pleural effusion. Patient also reports recent diagnosis of lung cancer.It is unclear if this is a non-small cell or small cell cancer.There is some report that it may be squamous cell. Patient also reports a history of bradycardia and states that he was not a surgical candidate for a pacemaker due to his lung cancer and poor condition. Patient reports he has no family. He is not . He denies having children. He did supply the name and phone number of a friend. Allergies Allergy/AdvReac Type Severity Reaction Status Date / Time hepatitis B immune globulin AdvReac Unknown Unverified 01/15/19 18:24 losartan AdvReac hyperkalemi Verified 01/16/19 05:06 a Home Medications Home Medications Medication Instructions Recorded Confirmed Type acetaminophen 650 mg PO Q6H PRN MDD 3G 01/10/19 01/15/19 History acetaminophen 650 mg PO Q6H PRN MDD 3G 01/10/19 01/15/19 History amlodipine 5 mg PO DAILY 01/10/19 01/15/19 History apixaban [Eliquis] 5 mg PO DAILY 01/10/19 01/15/19 History bisacodyl 10 mg SC DAILY PRN 01/10/19 01/15/19 History cyanocobalamin (vitamin B-12) 1,000 mcg PO DAILY 01/10/19 01/15/19 History folic acid 1 mg PO DAILY 01/10/19 01/15/19 History hydralazine 10 mg PO BID 01/10/19 01/15/19 History ipratropium-albuterol 3 ml INHALATION Q4H PRN 01/10/19 01/15/19 History magnesium hydroxide [Milk of 30 ml PO HS PRN 01/10/19 01/15/19 History Magnesia] oxycodone-acetaminophen [Percocet] 1 tab PO Q4H PRN 01/10/19 01/15/19 History oxycodone-acetaminophen [Percocet] 2 tab PO Q4 PRN 01/10/19 01/15/19 History pantoprazole [Protonix] 40 mg PO DAILY 01/10/19 01/15/19 History prednisone 20 mg PO DAILY 01/10/19 01/15/19 History pseudoephedrine-guaifenesin 1 tab PO Q12H PRN 01/10/19 01/15/19 History [Mucinex D] tamsulosin 0.4 mg PO DAILY 01/10/19 01/15/19 History Patient History Medical History CHF (congestive heart failure) HTN (hypertension) Hydronephrosis, right Lung cancer Paroxysmal A-fib Pleural effusion, left Family History Other Family history non-contributory Social History Preferred Language: Amharic Communication Ability: Effective Cuff Folder Required: No Beliefs That Will Affect Care: None marital status: Single Current Living Situation: Residential current occupational status: retired Other Information That Helps Us Care for You: No Feels Safe at Home: Yes Safety Concerns: Afraid for Self Smoking Status: Former smoker Do You Dip or Chew Tobacco: No ; Second Hand Exposure: No ; Tobacco Cessation Education Requested by Patient: No Hx Alcohol Use: No Hx Substance Use: No Review of Systems Review of Systems: All systems reviewed & are unremarkable except as noted in HPI & below Physical Exam Physical Exam: GENERAL : No acute distress. Pleasant.Cachectic appearance EYES: No icterus, gaze conjugate NOSE: No evidence of epistaxis MOUTH: No lesions or candidiasis. Poor dental hygiene. Tongue is midline. NECK: Supple. No evidence of stridor or JVD LUNGS: Bilateral crackles. Decreased breath sounds in the left. HEART: Regular, rate controlled in the 60s. ABDOMEN: Soft, NT, ND, BS Present EXTREMITIES: No LE edema, pedal pulses intact NEURO: A&OX3 Results & Data Vital Signs (Past 12 Hours) Vital Signs Temp Pulse Pulse Pulse Pulse Resp BP 01/16/19 15:07 42 L 20 01/16/19 14:00 36.4 C L 41 L 18 156/76 H 01/16/19 10:58 36 L 16 01/16/19 07:25 33 L 01/16/19 07:07 36.5 C 34 L 16 120/56 L 01/16/19 06:57 37 L 16 Pulse Ox 01/16/19 15:07 96 01/16/19 14:00 01/16/19 10:58 97 01/16/19 07:25 01/16/19 07:07 99 01/16/19 06:57 98 Laboratory Results 01/16/19 07:17 01/16/19 07:[address] chest wo con CLINICAL HISTORY: 73 years-old Male presenting with left apical pneumothorax. TECHNIQUE: Multidetector CT imaging of the chest was performed without the use of intravenous contrast. IV contrast: None. One or more dose lowering techniques were used consistent with the principles of ALARA (as low as reasonably achievable), including automatic exposure control, mA or kV adjustment to individual patient size, and/or use of iterative reconstruction. COMPARISON: Chest x-ray performed earlier today. CT DOSE (mGy.cm): The estimated cumulative dose is 598.63 mGycm. FINDINGS: Deck Cadet topogram: Cardiomegaly. Soft tissues: Multiple thyroid nodules. Diffuse body wall edema. Numerous prominent mediastinal lymph nodes in prevascular and paratracheal regions. Some are calcified. Atherosclerosis of the aorta. Multichamber enlargement of the heart. Coronary artery, aortic valve, and mitral annular calcification. Small pericardial effusion. Moderate simple appearing right pleural effusion. Small to moderate loculated left pleural effusion with a pleural drain positioned in the paramediastinal lower lung region. A second pleural drain is positioned in the paramediastinal posterior mid region. Prominent right upper pole cyst suspected. Diffuse mesenteric edema and trace ascites. Lungs and airways: No pneumothorax. Multifocal occluded lobar, segmental, and subsegmental airways in the lower lobes. Prominent peribronchovascular consolidation in the lower lobes. Patchy peribronchovascular consolidation in the remainder of the lobes. Pulmonary arteries are not significantly enlarged relative to adjacent bronchi. No interlobular septal thickening. Musculoskeletal: Degenerative changes of the spine. IMPRESSION: 1. Extensive peribronchovascular consolidation most prominently in the lower lobes though also to varying degrees throughout the remaining lobes. This is worrisome for multifocal pneumonia or multifocal cryptogenic organizing pneumonia. 2. Extensive endobronchial debris in the lower lobes, which may represent mucous plugging, aspiration, or infectious debris. 3. Bilateral pleural effusions, loculated on the left with pleural drains in place. 4. No pneumothorax. 5. Volume overload with anasarca. No angel pulmonary edema. 6. Cardiomegaly. Electronically signed by: Zaheer Keys M.D. 01/15/2019 7:16 PM PG Care Time/CCT Total # of Minutes Spent Total Time Spent with Patient: Total time spent is greater than 50% in coordination of care (as documented) at patient's floor/unit and/or counseling patient: 60
[2019-01-16] MEDS ORDERED: GLUCAGON FOR INJ 1 MG VIAL SQ PRN (20:50)
[2019-01-16] MEDS: INSULIN GLARGINE SOLOSTAR 100 UNITS/ML 3 ML PEN SQ SCH (21:29)
[2019-01-16 21:30] LABS: Partial Thromboplastin Ratio 1.6; Partial Thromboplastin Time 43.6 Seconds (21.0-31.0)
[2019-01-16] MEDS ORDERED: HEPARIN IV BOLUS 3,000 UNITS in SYRINGE 0 ML IV ONE (22:45)
[2019-01-17] MEDS: PIPERACILLIN/TAZOBACTAM 3.375 GM in DEXTROSE 5% 100 ML IV SCH ×3 (02:00→17:37)
[2019-01-17] MEDS: ALBUT/IPRATROP 3MG/0.5MG NEB 3 ML VIAL NEB SCH ×6 (02:58→23:07)
[2019-01-17] MEDS: HEPARIN SODIUM/DEXTROSE 25,000 UNITS/500 ML BAG IV SCH ×2 (05:05→20:00)
[2019-01-17 05:54] LABS: Partial Thromboplastin Ratio 2.9
[2019-01-17 06:06] LABS: Partial Thromboplastin Time 78.6 Seconds (21.0-31.0)
[2019-01-17] MEDS ORDERED: VANCOMYCIN TROUGH ONE (07:30)
[2019-01-17] MEDS: INSULIN ASPART 100 UNITS/ML 3 ML PEN SC SCH ×4 (07:43→20:36)
[2019-01-17] MEDS: TIOTROPIUM BROMIDE 5 PUFF/90 MCG INH INH SCH (07:45)
[2019-01-17] MEDS: FOLIC ACID 1 MG TAB PO SCH (07:46)
[2019-01-17] MEDS: HydrALAZINE 10 MG TAB PO SCH ×3 (07:46→20:01)
[2019-01-17] MEDS: TAMSULOSIN HCL 0.4 MG CAP PO SCH (07:46)
[2019-01-17] MEDS: PANTOprazole 40 MG TAB PO SCH (07:47)
[2019-01-17] MEDS: predniSONE 20 MG TAB PO SCH (07:47)
[2019-01-17] MEDS: AMLODIPINE BESYLATE 5 MG TAB PO SCH (07:47)
[2019-01-17] MEDS: THEOPHYLLINE 300MG EXTENDED REL TAB PO SCH ×2 (07:48→20:38)
[2019-01-17] MEDS: VANCOMYCIN HCL 1,250 MG in SODIUM CHLORIDE 0.9% 250 ML IV SCH ×2 (07:48→20:11)
--- NOTE | 2019-01-17 09:31 | Pharmacy Report ---
Pharmacy Abx Dose Short Note - Date of Service January 17, 2019 - Assessment & Plan Assessment 73 year old M receiving vancomycin/zosyn for treatment of possible pneumonia. Patient currently has chest tubes, lung cancer. MRSA nasal swab negative but may have lower utility in the setting of lung cancer. Leukocytosis resolved today, remains afebrile. Plan Vancomycin * Trough level of 18 mcg/mL is therapeutic, however is prior to steady state, will recheck trough tomorrow AM to ensure more accumulation has not occurred as patient has had significant weight differences. * Continue dose of 1250 mg IV every 12 hours * Goal trough level 15-20 mcg/mL * Trough ordered for 01/18 @0730 Pharmacy will continue to follow and will adjust dose/frequency as necessary. Thank you.
--- NOTE | 2019-01-17 09:39 | XRay Report ---
XR chest 2V routine CLINICAL HISTORY: 73 years-old Male presenting with B/L pleural effusions; L chest tubes. TECHNIQUE: PA and lateral views of the chest were obtained. COMPARISON: 01/15/2019. FINDINGS: Two left pleural drains remain in position at the paramediastinal left midlung. Atherosclerosis of th e aortic arch. Cardiac silhouette moderately enlarged. Pulmonary vascular prominence. Bilateral pleur al effusions as on prior exam, which may be loculated on the left in moderate in size, only small on the right. Basilar predominant opacities are stable in the left and slightly decreased on the right. No pneumothorax. Osseous structures normal. Upper abdomen normal. IMPRESSION: 1. Slightly decreased right basilar infiltrates with persistent bilateral pleural effusions, moderat e loculated on the left. 2. Cardiomegaly with megaly with slightly decreased volume overload. Electronically signed by: Zaheer Keys M.D. 01/17/2019 9:38 AM
--- NOTE | 2019-01-17 09:53 | Cardiology Progress Note ---
Date of Service January 17, 2019 Assessment & Plan (1) Bradycardia: Patient has a junctional bradycardia present on EKG and telemetry. Arrhythmias been present for more than 1 week if not greater with patient undergoing past evaluation during hospitalization and deemed not a candidate for pacemaker insertion given extremely poor prognosis of underlying malignancy with malignant pleural effusion Echocardiogram performed at [facility] 01/05/2019 currently on chart. Study demonstrates preserved LV systolic function no significant pericardial effusion calcified aortic valve with mild aortic stenosis Baseline heart rate has improved with the addition of theophylline. Would not discontinue (not use for pulmonary indications) BMP ordered to assess electrolytes and renal function Subjective Patient seen and examined, chart medications telemetry reviewed. No acute distress at this point time. Heart rates been trending higher with an average heart rate mid 40s. No profound bradycardia or pauses Physical Exam Constitutional: + ill appearing and + cachectic Neck: trachea midline, no thyromegaly Respiratory: Auscultation: + diminished lung sounds Cardiovascular: Rate/Rhythm: + bradycardic Heart Sounds: + murmur (Grade 1- 2 or 6 systolic ejection murmur, no diastolic) Extremities: + edema (Edema less pronounced) Gastrointestinal (Abdomen): Percussion/Palpation: abdomen soft Results & Data Vital Signs (Past 12 Hours) Vital Signs Temp Pulse Pulse Resp BP Pulse Ox 01/17/19 07:08 41 L 16 98 01/17/19 07:06 36.3 C L 41 L 20 146/75 H 98 01/17/19 02:58 42 L 16 98 01/17/19 02:45 36.4 C L 42 L 20 150/71 H 98 01/16/19 23:20 44 L 16 97 01/16/19 23:05 36.4 C L 43 L 16 132/70 96
[2019-01-17 10:09] LABS: BUN Creatinine Ratio 24.8 (10-20); Calcium 8.5 mg/dl (8.5-10.1); Creatinine Clr Calc Pharmacy 62.5 ml/min; Est GFR (African American) 70.8; Est GFR (Non-African American) 61.1; Potassium 3.8 mmol/L (3.5-5.1)
--- NOTE | 2019-01-17 10:38 | Pulmonology Progress Note ---
Date of Service January 17, 2019 Assessment & Plan (1) Squamous cell lung cancer: Patient diagnosed with squamous cell carcinoma via bronchoscopy July 2018 Patient failed to return calls and did not present for follow-up care for is newly diagnosed malignancy Developed shortness of breath and was seen at [facility] 12/26/2018 Transferred to [facility] for thoracentesis for large loculated effusion on the left 12/29/2018 patient underwent VATS procedure with partial pleurectomy and placement of chest tube and Pleurx drain POD #5 there is minimal drainage from the Pleurx catheter and MIST procedure was attempted with leakage around the tube so this was abandoned 01/08/2019 patient transferred to [facility] with scheduled follow- up with thoracic surgery 01/24/2019 01/15/2019 patient admitted to [facility] for complications from chest tubes Call placed to thoracic surgery team today and awaiting callback Minimal drainage from the chest tube overnight No attempt was made to drain the Pleurx catheter based on above information Oncology has stated that they will see the patient is an outpatient Will determine disposition later today (2) Complication of chest tube: See above history We will continue to manage chest tubes until disposition determined Will consult Dr. Webber from thoracic surgery Encounter type: initial encounter Qualified Code(s): T85.9XXA - Unspecified complication of internal prosthetic device, implant and graft, initial encounter (3) Pleural effusion: Loculated pleural effusion secondary to malignancy Previous thoracentesis with malignant fluid Outside records requested Chest tube as well as Pleurx catheter currently on the left Continue to follow pending disposition of oncology Thank you for including us in the care of this patient. We will continue to follow with patient as course of care as determined. Palliative consult has been placed. Disposition at this time is unknown regarding treatment of cancer or follow-up care. Please refer to Dr. Barriga's addendum for further recommendations Supervising Physician Co-Signing Physician Notes I saw and evaluated the patient with Mike Anderson, and agree with findings and plan as documented in the note. Patient seen and examined at bedside. Shortness of breath still the same. Left-sided chest tube draining 300 cc in the last 24 hours. Pleurx catheter has not been utilized. Evidently Mist. protocol was done on Pleurx catheter in the previous hospital and it was not not draining. We will try mist protocol once again on the Pleurx catheter. Thoracic surgery has been consulted. We can remove and place a new Pleurx catheter but that has to be enough pleural fluid to place a new Pleurx catheter in, for this we need to remove both the chest tube and the Pleurx catheter and have the pleural effusion recollect. We will coordinate with thoracic surgery to look for the best alternative. Had discussion regarding goals of care with the patient today. Patient has a good understanding of his prognosis. He does not want to be intubated or resuscitated when the time comes. He does want to continue with the therapy which can be offered to him. Patient to be made DNR/DNI. Subjective Attending: Dr. Barriga Patient seen at bedside and case discussed with hospitalist team. I also called Dr. Steele's office [phone] Patient was placed on supplemental O2 via nasal cannula for desaturations overnight. Patient also has bradycardia with a rate in the 40s. He was seen by Dr. Srinath Zabala of [facility] cardiology. At this point a consult for oncology has not been placed. Records have arrived from [facility] and give a clear picture of what is happened since July of this year. In summary: 07/2018: Diagnosis of squamous cell carcinoma of the lung status post bronchoscopy * Multiple attempts were unsuccessful in reaching the patient for follow-up care regarding cancer diagnosis 12/26/2018: Left-sided thoracentesis 12/28/2018: Patient transferred to [facility] from [facility] for bradycardia and SOB 12/29/2018: Patient underwent VATS procedure on left by Dr. Steele * Left chest tube placed with drainage to Pleur-evac system * Left tunneled Pleurx catheter placed with drainage to Pleur-evac system 01/08/2019: Patient discharged from [facility] to [facility] planned follow-up thoracic [id number] * Discharge summary completed by Reva Houston PA-C of the thoracic surgery team * Significant discharge from chest to postoperative day #3 with very little drainage from the Pleurx catheter * POD #7 attempted to clamp chest tube and is still alteplase/dornase through Pleurx but there is extensive leakage around the site so forced unclamped and allowed to drain. Pleurx catheter continued to have almost no drainage. * POD #10 (01/08/2019) patient was discharge to [facility] with a mini Rula connected to the chest tube in order daily Pleurx drainage. Eliquis was restarted at this time 01/10/2019: Patient presents to [facility] emergency department with complaints of Pleur-evac being full. He was seen by the emergency room physician and was subsequently discharged back to skilled nursing at 18:47 01/15/2019: Patient presented again to the emergency department [facility] and again found to have a full Pleur-evac with shortness of breath. * Patient admitted to [facility] for further evaluation and treatment 01/16/2019: Consult placed for pulmonary to evaluate patient. * Left chest tube found to be in place to Rula Pleur-evac to waterseal with no evidence of air leak. * Attempted to drain left Pleurx catheter and was able to drain only 10 mL of straw-colored fluid. Catheter appeared to be patent. * Patient remained on waterseal Review of Systems Review of Systems: All systems reviewed & are unremarkable except as noted in HPI & below Physical Exam Physical Exam: GENERAL : No acute distress EYES: No icterus, gaze conjugate NOSE: No evidence of epistaxis MOUTH: No lesions or candidiasis NECK: Supple LUNGS: Decreased air entry bilaterally no wheezes, rales or rhonchi HEART: Bradycardic in the 40s ABDOMEN: Soft, NT, ND, BS Present EXTREMITIES: No LE edema, pedal pulses intact NEURO: A&OX3 Lymphatic: no cervical or axillary lymphadenopathy Results & Data Vital Signs (Past 12 Hours) Vital Signs Temp Pulse Pulse Resp BP Pulse Ox 01/17/19 07:08 41 L 16 98 01/17/19 07:06 36.3 C L 41 L 20 146/75 H 98 01/17/19 02:58 42 L 16 98 01/17/19 02:45 36.4 C L 42 L 20 150/71 H 98 01/16/19 23:20 44 L 16 97 01/16/19 23:05 36.4 C L 43 L 16 132/70 96 Laboratory Results 01/16/19 07:17 01/17/19 05:19 Diagnostic Findings XR chest 2V routine CLINICAL HISTORY: 73 years-old Male presenting with B/L pleural effusions; L chest tubes. TECHNIQUE: PA and lateral views of the chest were obtained. COMPARISON: 01/15/2019. FINDINGS: Two left pleural drains remain in position at the paramediastinal left midlung. Atherosclerosis of the aortic arch. Cardiac silhouette moderately enlarged. Pulmonary vascular prominence. Bilateral pleural effusions as on prior exam, which may be loculated on the left in moderate in size, only small on the right. Basilar predominant opacities are stable in the left and slightly decreased on the right. No pneumothorax. Osseous structures normal. Upper abdomen normal. IMPRESSION: 1. Slightly decreased right basilar infiltrates with persistent bilateral pleural effusions, moderate loculated on the left. 2. Cardiomegaly with megaly with slightly decreased volume overload. Electronically signed by: Zaheer Keys M.D. 01/17/2019 9:38 AM PG Care Time/CCT Total # of Minutes Spent Total Time Spent with Patient: Total time spent is greater than 50% in coordination of care (as documented) at patient's floor/unit and/or counseling patient: 60 minutes including call placed to thoracic surgery at [facility]
[2019-01-17 12:28] LABS: Partial Thromboplastin Ratio 1.9
[2019-01-17 12:37] LABS: Partial Thromboplastin Time 51.8 Seconds (21.0-31.0)
--- NOTE | 2019-01-17 17:23 | Hospitalist Progress Note ---
Date of Service January 17, 2019 Assessment & Plan (1) Acute and chronic respiratory failure: Likely secondary to lung carcinoma with pleural effusion mostly in the right side Remains stable (2) Malignant pleural effusion: Patient diagnosed with squamous cell carcinoma via bronchoscopy July 2018 Has been noncompliant with follow-up and subsequent events go on as follows: Was seen at [facility] 12/26/2018 with increasing shortness of breath Transferred to [facility] for thoracentesis for large loculated effusion on the left 12/29/2018 patient underwent VATS procedure with partial pleurectomy and placement of chest tube and Pleurx drain POD #5 there is minimal drainage from the Pleurx catheter and MIST procedure was attempted with leakage around the tube so this was abandoned 01/08/2019 patient transferred to [facility] with scheduled follow- up with thoracic surgery 01/24/2019 01/15/2019 patient admitted to [facility] for complications from chest tubes Appreciate pulmonary input and recommendation Likely to have thoracic surgery evaluation for consideration of management of chest tubes and Pleurx catheter Discussed with oncologist We will have outpatient appointment for further evaluation and management of lung cancer Appreciate palliative care input and recommendation Present on Admission?: Yes (3) Pneumonia: Present on admission with worsening SOB S/P chest tube placement CT chest extensive peribronchovascular consolidation most prominently in the lower lobes though also to varying degrees throughout the remaining lobes. Extensive endobronchial debris in the lower lobes, which may represent mucous plugging, aspiration, or infectious debris. Bilateral pleural effusions, loculated on the left with pleural drains in place. Has been on intravenous Zosyn and vancomycin Pulmonology on board Continue oxygen supplement, Neb treatment Speech eval, plan to get a video swallow test today Diastolic CHF Evidence of fluid overload mostly due to anasarca due to profound hypoalbuminemia CXR showed cardiomegaly with evidence of congestive failure. Continue lasix IV BID Monitor I/O Bradycardia Last admission at [facility] not a candidate for pacemaker insertion given extremely poor prognosis of underlying malignancy with malignant pleural effusion Cardiology on board and agreed that pt not a good candidate for pacemaker due to poor prognosis Theophylline to help with the heart rate Continue monitor in tele No indication for pacemaker placement Paroxysmal Afib Heart rate has been running low Eliquis on hold in case pt will need procedure On heparin drip for now Stable DVT px on heparin drip for now Discussed with the patient And now he is a DNR Prognosis remains poor Subjective 01/17 The patient was seen and examined in telemetry unit He has been complaining of shortness of breath but denies any chest pain and/or palpitation Denies any abdominal pain nausea or vomiting Feels little bit better since admission Review of Systems Review of Systems: All systems reviewed and unremarkable except as noted below Constitutional: + fatigue, + weakness, + anorexia and + weight loss Respiratory: + cough and + dyspnea (Minimal at rest) Cardiovascular: no chest pain Gastrointestinal: no abdominal pain and no bloating Neurologic: + generalized weakness and + confusion (Pleasantly confused) Physical Exam Physical Exam: Lying in bed with minimal distress secondary to shortness of breath Constitutional: well developed, + acute distress (Mild to moderate distress due to shortness of breath) and + ill appearing Eyes: PERRL, conjunctivae normal, anicteric sclerae ENMT: external ear and nose normal, oropharynx normal Neck: trachea midline, no thyromegaly Respiratory: + respiratory distress and + dullness to percussion (On right side) Auscultation: + diminished lung sounds and + crackles (Mostly on the right side) Cardiovascular: Rate/Rhythm: regular rate, regular rhythm and + bradycardic Heart Sounds: no murmur Gastrointestinal (Abdomen): Inspection/Auscultation: abdomen normal to inspection; abdomen not distended Percussion/Palpation: abdomen soft Musculoskeletal: No acute arthritis in any of the joints Neurologic: moves all extremities Generally very weak and lethargy Results & Data Vital Signs (Past 12 Hours) Vital Signs Temp Pulse Pulse Pulse Resp BP Pulse Ox 01/17/19 15:33 86 16 91 01/17/19 15:11 36.4 C L 46 L 19 128/67 96 01/17/19 14:20 45 L 01/17/19 11:22 44 L 16 99 01/17/19 10:52 36.3 C L 44 L 24 147/69 H 96 01/17/19 07:08 41 L 16 98 01/17/19 07:06 36.3 C L 41 L 20 146/75 H 98 Laboratory Results [facility] 01/17/19 05:19 Sodium 138 Potassium 3.8 Chloride 96 L Carbon Dioxide 38 H BUN 30 H Creatinine 1.19 Glucose 89 Calcium 8.5 Medications Administered Current Inpatient Medications Acetaminophen (Tylenol) 650 mg PO Q4H PRN PRN Reason: Pain or Fever Stop: 02/14/19 23:47 Albuterol (Duoneb) 3 ml NEB Q4R [facility] Stop: 02/14/19 23:47 Last Admin: 01/17/19 15:31 Dose: 3 ml Documented by: Amlodipine Besylate (Norvasc) 10 mg PO QAM [facility] Stop: 02/15/19 08:59 Last Admin: 01/17/19 07:47 Dose: 10 mg Documented by: Dextrose (Dextrose 50%) 25 - 50 ml IV UD PRN; Protocol PRN Reason: Hypoglycemia Protocol Stop: 02/15/19 00:14 Dextrose (Dextrose 50%) 25 - 50 ml IV UD PRN; Protocol PRN Reason: Hypoglycemia Protocol Stop: 02/15/19 20:49 Folic Acid (Folvite) 1 mg PO DAILY [facility] Stop: 02/15/19 08:59 Last Admin: 01/17/19 07:46 Dose: 1 mg Documented by: Glucagon (Glucagen) 1 mg IM UD PRN; Protocol PRN Reason: Hypoglycemia Protocol Stop: 02/15/19 00:14 Glucagon (Glucagen) 1 mg SQ UD PRN; Protocol PRN Reason: Hypoglycemia Protocol Stop: 02/15/19 20:49 Glucose (Glucose 40%) 15 - 30 gm PO UD PRN; Protocol PRN Reason: Hypoglycemia Protocol Stop: 02/15/19 00:14 Glucose (Dex4 Glucose) 4 - 8 tabs PO UD PRN; Protocol PRN Reason: Hypoglycemia Protocol Stop: 02/15/19 00:14 Glucose (Glucose 40%) 15 - 30 gm PO UD PRN; Protocol PRN Reason: Hypoglycemia Protocol Stop: 02/15/19 20:49 Glucose (Dex4 Glucose) 4 - 8 tabs PO UD PRN; Protocol PRN Reason: Hypoglycemia Protocol Stop: 02/15/19 20:49 Hydralazine HCl (Apresoline) 10 mg PO TID [facility] Stop: 02/15/19 00:14 Last Admin: 01/17/19 12:58 Dose: 10 mg Documented by: Promethazine HCl 12.5 mg/ (Sodium Chloride) 50.5 mls @ 202 mls/hr IV Q6H PRN PRN Reason: Nausea And Vomiting Stop: 02/14/19 23:47 Heparin Sodium/Dextrose (Heparin Sodium/Dextrose) 25,000 units in 500 mls @ 34 mls/hr IV .[id number] [facility]; Protocol Stop: 02/14/19 23:47 Last Titration: 01/17/19 12:40 Dose: 1,700 units/hr, 34 mls/hr Documented by: Piperacillin Sod/Tazobactam (Sod 3.375 gm/ Dextrose) 115 mls @ 28.75 mls/hr IV Q8H [facility]; Protocol Stop: 01/23/19 01:59 Last Infusion: 01/17/19 14:08 Dose: Infused Documented by: Vancomycin HCl 1,250 mg/ (Sodium Chloride) 275 mls @ 125 mls/hr IV Q12H [facility] Stop: 01/23/19 07:59 Last Infusion: 01/17/19 10:05 Dose: Infused Documented by: Insulin Aspart (Novolog Flexpen) 0 units SC ACHS [facility] Stop: 02/16/19 07:29 Last Admin: 01/17/19 11:42 Dose: Not Given Documented by: Insulin Glargine (Lantus Solostar Pen) 5 units SQ HS [facility] Stop: 02/15/19 20:59 Last Admin: 01/16/19 21:29 Dose: 5 units Documented by: Miscellaneous (Carbohydrates For Hypoglycemia) 15 - 30 gm PO UD PRN PRN Reason: Hypoglycemia Treatment Stop: 02/15/19 00:14 Miscellaneous (Carbohydrates For Hypoglycemia) 15 - 30 gm PO UD PRN PRN Reason: Hypoglycemia Treatment Stop: 02/15/19 20:49 Miscellaneous Information (Consult) 1 ea N/A UD PRN PRN Reason: Consult Stop: 02/14/19 19:24 Miscellaneous Information (Consult) 1 ea N/A UD PRN PRN Reason: Consult Stop: 02/14/19 19:24 Morphine Sulfate (Morphine Sulfate) 4 mg IV Q4H PRN PRN Reason: Pain Stop: 01/29/19 23:47 Nitroglycerin (Nitrostat) 0.4 mg SL UD PRN PRN Reason: Chest Pain Stop: 02/14/19 23:47 Oxycodone/Acetaminophen (Percocet 5mg/325mg) 1 tab PO Q4H PRN PRN Reason: Pain Stop: 01/29/19 23:47 Oxycodone/Acetaminophen (Percocet 5mg/325mg) 2 tab PO Q4 PRN PRN Reason: Pain Stop: 01/29/19 23:47 Pantoprazole Sodium (Protonix) 40 mg PO DAILY [facility] Stop: 02/15/19 08:59 Last Admin: 01/17/19 07:47 Dose: 40 mg Documented by: Prednisone (Prednisone) 20 mg PO DAILY [facility] Stop: 02/15/19 08:59 Last Admin: 01/17/19 07:47 Dose: 20 mg Documented by: Tamsulosin HCl (Flomax) 0.4 mg PO DAILY [facility] Stop: 02/15/19 08:59 Last Admin: 01/17/19 07:46 Dose: 0.4 mg Documented by: Theophylline (Sid-Dur Extended Rel) 300 mg PO BID [facility] Stop: 02/15/19 20:59 Last Admin: 01/17/19 07:48 Dose: 300 mg Documented by: Tiotropium Parlier (Spiriva) 1 puffs INH QAM [facility] Stop: 02/16/19 08:59 Last Admin: 01/17/19 07:45 Dose: 1 puffs Documented by:
[2019-01-17] MEDS: INSULIN GLARGINE SOLOSTAR 100 UNITS/ML 3 ML PEN SQ SCH (20:38)
[2019-01-18] MEDS: PIPERACILLIN/TAZOBACTAM 3.375 GM in DEXTROSE 5% 100 ML IV SCH ×3 (02:37→17:35)
[2019-01-18] MEDS: ALBUT/IPRATROP 3MG/0.5MG NEB 3 ML VIAL NEB SCH ×6 (03:20→23:00)
[2019-01-18 07:29] LABS: Eosinophils # (auto) 0.05 K/uL (0-0.5); Eosinophils % (auto) 0.6 %; Hematocrit (blood only) 33.8 % (42-52); Hemoglobin 10.2 g/dL (14.0-18.0); Immature Granulocytes # (auto) 0.02 K/uL (0.00-0.02); Immature Granulocytes % (auto) 0.3 %; Lymphocytes # (auto) 0.46 K/uL (1.2-3.4); Lymphocytes % (auto) 5.9 %; Mean Corpuscular Hemoglobin 24.9 pg (25-34); Mean Corpuscular Hgb Conc 30.2 g/dL (32-36); Mean Corpuscular Volume 82.4 fL (80-100); Mean Platelet Volume 8.3 fL (7.4-10.4); Monocytes # (auto) 0.77 K/uL (0.11-0.59); Monocytes % (auto) 9.8 %; Neutrophils # (auto) 6.53 K/uL (1.4-6.5); Neutrophils % (auto) 83.4 %; Platelet Count 111 K/uL (130-400); RDW Coefficient of Variation 20.5 % (11.5-14.5); RDW Standard Deviation 61.8 fL (36.4-46.3); White Blood Count 7.83 K/uL (4.8-10.8)
[2019-01-18] MEDS ORDERED: VANCOMYCIN TROUGH ONE (07:30)
[2019-01-18 07:51] LABS: Anisocytosis Present; Hypochromasia Present
[2019-01-18 07:52] LABS: Partial Thromboplastin Ratio 2.1
[2019-01-18 07:53] LABS: Partial Thromboplastin Time 55.8 Seconds (21.0-31.0)
[2019-01-18 08:11] LABS: BUN Creatinine Ratio 23.3 (10-20); Calcium 8.6 mg/dl (8.5-10.1); Creatinine Clr Calc Pharmacy 72.9 ml/min; Est GFR (African American) 85.3; Est GFR (Non-African American) 73.6; Magnesium 1.8 mg/dl (1.8-2.4); Phosphorus 3.1 mg/dl (2.5-4.9); Potassium 3.8 mmol/L (3.5-5.1)
[2019-01-18] MEDS ORDERED: VANCOMYCIN HCL 1,000 MG in SODIUM CHLORIDE 0.9% 250 ML IV SCH (09:00)
[2019-01-18] MEDS: INSULIN ASPART 100 UNITS/ML 3 ML PEN SC SCH ×4 (09:18→20:34)
--- NOTE | 2019-01-18 09:22 | Consultation Report ---
DATE OF CONSULTATION: 01/18/2019 REASON FOR CONSULTATION: Malignant left pleural effusion. HISTORY OF PRESENT ILLNESS: Filipe Kohli is a 73-year-old male who was diagnosed with a squamous cell carcinoma of his left lung in July of this year. The patient developed bilateral pleural effusions and underwent a left thoracoscopy along with a bronchoscopy and insertion of not just a chest tube, but a PleurX catheter on 12/29/2018 at [facility]. The patient continued to drain malignant fluid and was sent to [facility] here in [place]. His collection chamber continues to fill up and it becomes hard for him to breathe. The interesting part is his PleurX is not working. He now has a chest tube in place and has a PleurX which is not working. I have been asked to comment on this from a thoracic surgery standpoint. PAST MEDICAL HISTORY: 1. History of cigarette smoking. 2. Chronic obstructive pulmonary disease. 3. Episodes of hypernatremia and hyperkalemia. 4. Hypertension. 5. Squamous cell carcinoma, left upper lobe. 6. Paroxysmal atrial fibrillation. 7. Bilateral pleural effusions (malignant). PAST SURGICAL HISTORY: 1. Left thoracoscopy with limited decortication and pleurectomy and insertion of a chest tube as well as an indwelling pleural catheter. 2. Bronchoscopy. 3. Esophagogastroscopy. MEDICATIONS: Please see chart. He is on Eliquis for his atrial fibrillation. SOCIAL HISTORY: The patient is a resident of [facility]. That is his primary residence now. ALLERGIES: LOSARTAN HAS EXACERBATED HIS HYPERKALEMIA. HE ALSO STATES HE IS ALLERGIC TO HEPATITIS B VACCINES. FAMILY MEDICAL HISTORY: Noncontributory. REVIEW OF SYSTEMS: The patient is very difficult to get a history from. He has had some problems with his heart including atrial fibrillation, had been in junctional rhythm; however, a pacemaker was deferred because of concerns with infections and his long-term outlook. He also has a problem with congestive heart failure in the past. He states he has been eating "okay." He denied any skin breakdown. He has chest tubes with some pain from these. He has lost weight. He has peripheral edema. He has had no neurologic events. He has had no visual or auditory symptoms. PHYSICAL EXAMINATION: GENERAL: I saw the patient this morning. He is up eating breakfast. He has a flat affect. HEENT: Extraocular movements are intact. NECK: He has no supraclavicular or cervical lymphadenopathy. LUNGS: He has markedly decreased breath sounds in both bases. He has 2 chest tubes draining his left side (his chest tube put out about 90 mL yesterday). He is making urine. ABDOMEN: Soft. HEART: He has a slow regular heart rate in the high 40s. He has got peripheral edema about 2+. NEUROLOGIC: He moves all extremities. 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 This patient needs a PleurX catheter that is working so this can be drained on a regular basis. The Rula collection chamber is unfamiliar to the staff at [facility]. Quite frankly, I think this is a wick for infection and would remove this tube any way. I have discussed this with Dr. Barriga from pulmonology. We are going to remove the PleurX and the regular chest tube today and allow his chest to fill with fluid and then under ultrasound guidance place a new PleurX catheter, which I think would be appropriate. The patient is in agreement with this. We will pull his tubes later today. Thank you very much for asking us to see this patient.
[2019-01-18] MEDS: VANCOMYCIN HCL 1,250 MG in SODIUM CHLORIDE 0.9% 250 ML IV SCH (09:42)
[2019-01-18] MEDS: HydrALAZINE 10 MG TAB PO SCH (10:26)
[2019-01-18] MEDS: TAMSULOSIN HCL 0.4 MG CAP PO SCH (10:27)
[2019-01-18] MEDS: AMLODIPINE BESYLATE 5 MG TAB PO SCH (10:28)
[2019-01-18] MEDS: FOLIC ACID 1 MG TAB PO SCH (10:28)
[2019-01-18] MEDS: predniSONE 20 MG TAB PO SCH (10:30)
[2019-01-18] MEDS: PANTOprazole 40 MG TAB PO SCH (10:31)
[2019-01-18] MEDS: TIOTROPIUM BROMIDE 5 PUFF/90 MCG INH INH SCH (10:32)
[2019-01-18] MEDS: THEOPHYLLINE 300MG EXTENDED REL TAB PO SCH ×2 (10:34→20:34)
[2019-01-18] MEDS: HEPARIN SODIUM/DEXTROSE 25,000 UNITS/500 ML BAG IV SCH (10:57)
--- NOTE | 2019-01-18 11:25 | Cardiology Progress Note ---
Date of Service January 18, 2019 Assessment & Plan (1) Bradycardia: Patient has a junctional bradycardia present on EKG and telemetry. Arrhythmias been present for more than 1 week if not greater with patient undergoing past evaluation during hospitalization and deemed not a candidate for pacemaker insertion given extremely poor prognosis of underlying malignancy with malignant pleural effusion Echocardiogram performed at [facility] 01/05/2019 currently on chart. Study demonstrates preserved LV systolic function no significant pericardial effusion calcified aortic valve with mild aortic stenosis Plan: Continue theophyllineTheodUR 300 mg twice per day. Hypertension may need a slight increase in hydralazine dosing. Patient will likely benefit from low-dose diuretic daily once pleural catheter exchanged Will sign off but follow loosely contact with any concern (2) Hypertension: (3) Malignant pleural effusion: Subjective Patient seen and examined, chart medications telemetry reviewed. Heart rates continue to run mid 40s to slightly higher at times. No profound bradycardia arrhythmias or pauses Blood pressure trending somewhat higher Physical Exam Constitutional: + ill appearing and + cachectic Neck: trachea midline, no thyromegaly Respiratory: Auscultation: + diminished lung sounds Cardiovascular: Rate/Rhythm: + bradycardic Heart Sounds: + murmur (Grade 1- 2 or 6 systolic ejection murmur, no diastolic) Extremities: + edema (Edema less pronounced) Gastrointestinal (Abdomen): Percussion/Palpation: abdomen soft Results & Data Vital Signs (Past 12 Hours) Vital Signs Temp Pulse Pulse Resp BP BP Pulse Ox 01/18/19 11:01 36.4 C L 46 L 20 156/90 H 100 01/18/19 10:54 46 L 16 93 01/18/19 09:00 36.6 C 47 L 12 154/79 H 97 01/18/19 07:10 46 L 14 92 01/18/19 03:31 36.5 C 44 L 18 161/84 H 98 01/18/19 03:20 50 L 18 97 01/18/19 00:00 43 L 01/17/19 23:39 36.5 C 77 19 166/88 H 93
[2019-01-18] MEDS: FUROSEMIDE 20 MG in SYRINGE 0 ML IV SCH (11:37)
--- NOTE | 2019-01-18 12:13 | Hospitalist Progress Note ---
Date of Service January 18, 2019 Assessment & Plan (1) Acute and chronic respiratory failure: Likely secondary to lung carcinoma with pleural effusion mostly in the right side Remains stable (2) Malignant pleural effusion: Patient diagnosed with squamous cell carcinoma via bronchoscopy July 2018 Has been noncompliant with follow-up and subsequent events go on as follows: Was seen at [facility] 12/26/2018 with increasing shortness of breath Transferred to [facility] for thoracentesis for large loculated effusion on the left 12/29/2018 patient underwent VATS procedure with partial pleurectomy and placement of chest tube and Pleurx drain POD #5 there is minimal drainage from the Pleurx catheter and MIST procedure was attempted with leakage around the tube so this was abandoned 01/08/2019 patient transferred to [facility] with scheduled follow- up with thoracic surgery 01/24/2019 01/15/2019 patient admitted to [facility] for complications from chest tubes Appreciate pulmonary input and recommendation Likely to have thoracic surgery evaluation for consideration of management of chest tubes and Pleurx catheter Discussed with oncologist We will have outpatient appointment for further evaluation and management of lung cancer Appreciate palliative care input and recommendation Appreciate thoracic surgery input and recommendation; likely to have extraction of the chest tube and Pleurx catheter May need to have the introduction of Pleurx catheter down the line Patient remains otherwise stable (3) Pneumonia: Present on admission with worsening SOB S/P chest tube placement CT chest extensive peribronchovascular consolidation most prominently in the lower lobes though also to varying degrees throughout the remaining lobes. Extensive endobronchial debris in the lower lobes, which may represent mucous plugging, aspiration, or infectious debris. Bilateral pleural effusions, loculated on the left with pleural drains in place. Has been on intravenous Zosyn and vancomycin Pulmonology on board Continue oxygen supplement, Neb treatment Video swallow did show minimal aspiration; will follow the recommendation Diastolic CHF Evidence of fluid overload mostly due to anasarca due to profound hypoalbuminemia CXR showed cardiomegaly with evidence of congestive failure. Continue lasix IV BID Monitor I/O Bradycardia Last admission at [facility] not a candidate for pacemaker insertion given extremely poor prognosis of underlying malignancy with malignant pleural effusion Cardiology on board and agreed that pt not a good candidate for pacemaker due to poor prognosis Theophylline to help with the heart rate Continue monitor in tele No indication for pacemaker placement Will decrease the theophylline dose as per automotive technician Paroxysmal Afib Heart rate has been running low Eliquis on hold in case pt will need procedure On heparin drip for now Stable DVT px on heparin drip for now We will continue heparin drip for now Discussed with the patient And now he is a DNR Prognosis remains poor Subjective 01/17 The patient was seen and examined in telemetry unit He has been complaining of shortness of breath but denies any chest pain and/or palpitation Denies any abdominal pain nausea or vomiting Feels little bit better since admission 01/18 The patient was seen and examined in telemetry He has been feeling a lot better Still complains some pain in the left chest but denies any shortness of breath at rest No fever and/or chills Heart rate remains around 40 Review of Systems Review of Systems: All systems reviewed and unremarkable except as noted below Constitutional: + fatigue, + weakness, + anorexia and + weight loss Respiratory: + cough and + dyspnea (Minimal at rest) Neurologic: + generalized weakness and + confusion (Pleasantly confused) Physical Exam Physical Exam: Lying in bed comfortably Constitutional: well developed and + ill appearing; no acute distress Eyes: PERRL, conjunctivae normal, anicteric sclerae ENMT: external ear and nose normal, oropharynx normal Neck: trachea midline, no thyromegaly Respiratory: + respiratory distress and + dullness to percussion (On right side) Auscultation: + diminished lung sounds and + crackles (Mostly on the right side) Cardiovascular: Rate/Rhythm: regular rate, regular rhythm and + bradycardic Heart Sounds: no murmur Gastrointestinal (Abdomen): Inspection/Auscultation: abdomen normal to inspection; abdomen not distended Percussion/Palpation: abdomen soft Neurologic: moves all extremities Results & Data Vital Signs (Past 12 Hours) Vital Signs Temp Pulse Resp BP BP Pulse Ox 01/18/19 11:01 36.4 C L 46 L 20 156/90 H 100 01/18/19 10:54 46 L 16 93 01/18/19 09:00 36.6 C 47 L 12 154/79 H 97 01/18/19 07:10 46 L 14 92 01/18/19 03:31 36.5 C 44 L 18 161/84 H 98 01/18/19 03:20 50 L 18 97 Laboratory Results Short CBC 01/18/19 Range/Units 07:19 WBC 7.83 (4.8-10.8) K/uL Hgb 10.2 L (14.0-18.0) g/dL Hct 33.8 L (42-52) % Plt Count 111 L (130-400) K/uL BMP 01/18/19 07:19 Sodium 138 Potassium 3.8 Chloride 96 L Carbon Dioxide 36 H BUN 24 H Creatinine 1.02 Glucose 83 Calcium 8.6 Medications Administered Current Inpatient Medications Acetaminophen (Tylenol) 650 mg PO Q4H PRN PRN Reason: Pain or Fever Stop: 02/14/19 23:47 Albuterol (Duoneb) 3 ml NEB Q4R RAZ Stop: 02/14/19 23:47 Last Admin: 01/18/19 10:53 Dose: 3 ml Documented by: Amlodipine Besylate (Norvasc) 10 mg PO QAM COUNTS INCLUDE 234 BEDS AT THE [facility] Stop: 02/15/19 08:59 Last Admin: 01/18/19 10:28 Dose: 10 mg Documented by: Dextrose (Dextrose 50%) 25 - 50 ml IV UD PRN; Protocol PRN Reason: Hypoglycemia Protocol Stop: 02/15/19 00:14 Dextrose (Dextrose 50%) 25 - 50 ml IV UD PRN; Protocol PRN Reason: Hypoglycemia Protocol Stop: 02/15/19 20:49 Folic Acid (Folvite) 1 mg PO DAILY COUNTS INCLUDE 234 BEDS AT THE [facility] Stop: 02/15/19 08:59 Last Admin: 01/18/19 10:28 Dose: 1 mg Documented by: Glucagon (Glucagen) 1 mg IM UD PRN; Protocol PRN Reason: Hypoglycemia Protocol Stop: 02/15/19 00:14 Glucagon (Glucagen) 1 mg SQ UD PRN; Protocol PRN Reason: Hypoglycemia Protocol Stop: 02/15/19 20:49 Glucose (Glucose 40%) 15 - 30 gm PO UD PRN; Protocol PRN Reason: Hypoglycemia Protocol Stop: 02/15/19 00:14 Glucose (Dex4 Glucose) 4 - 8 tabs PO UD PRN; Protocol PRN Reason: Hypoglycemia Protocol Stop: 02/15/19 00:14 Glucose (Glucose 40%) 15 - 30 gm PO UD PRN; Protocol PRN Reason: Hypoglycemia Protocol Stop: 02/15/19 20:49 Glucose (Dex4 Glucose) 4 - 8 tabs PO UD PRN; Protocol PRN Reason: Hypoglycemia Protocol Stop: 02/15/19 20:49 Hydralazine HCl (Apresoline) 25 mg PO TID COUNTS INCLUDE 234 BEDS AT THE [facility] Stop: 02/17/19 13:59 Promethazine HCl 12.5 mg/ (Sodium Chloride) 50.5 mls @ 202 mls/hr IV Q6H PRN PRN Reason: Nausea And Vomiting Stop: 02/14/19 23:47 Heparin Sodium/Dextrose (Heparin Sodium/Dextrose) 25,000 units in 500 mls @ 34 mls/hr IV .[id number] COUNTS INCLUDE 234 BEDS AT THE [facility]; Protocol Stop: 02/14/19 23:47 Last Admin: 01/18/19 10:57 Dose: 1,700 units/hr, 34 mls/hr Documented by: Piperacillin Sod/Tazobactam (Sod 3.375 gm/ Dextrose) 115 mls @ 28.75 mls/hr IV Q8H COUNTS INCLUDE 234 BEDS AT THE [facility]; Protocol Stop: 01/23/19 01:59 Last Admin: 01/18/19 09:42 Dose: 28.8 mls/hr Documented by: Vancomycin HCl 1,250 mg/ (Sodium Chloride) 275 mls @ 125 mls/hr IV Q12H COUNTS INCLUDE 234 BEDS AT THE [facility] Stop: 01/23/19 07:59 Last Infusion: 01/18/19 11:53 Dose: Infused Documented by: Furosemide 20 mg/ Syringe 2 mls @ 4 mls/min IV DAILY COUNTS INCLUDE 234 BEDS AT THE [facility] Stop: 02/17/19 11:14 Last Admin: 01/18/19 11:37 Dose: 4 mls/min Documented by: Insulin Aspart (Novolog Flexpen) 0 units SC ACHS COUNTS INCLUDE 234 BEDS AT THE [facility] Stop: 02/16/19 07:29 Last Admin: 01/18/19 09:18 Dose: Not Given Documented by: Insulin Glargine (Lantus Solostar Pen) 5 units SQ HS COUNTS INCLUDE 234 BEDS AT THE [facility] Stop: 02/15/19 20:59 Last Admin: 01/17/19 20:38 Dose: 5 units Documented by: Miscellaneous (Carbohydrates For Hypoglycemia) 15 - 30 gm PO UD PRN PRN Reason: Hypoglycemia Treatment Stop: 02/15/19 00:14 Miscellaneous (Carbohydrates For Hypoglycemia) 15 - 30 gm PO UD PRN PRN Reason: Hypoglycemia Treatment Stop: 02/15/19 20:49 Miscellaneous Information (Consult) 1 ea N/A UD PRN PRN Reason: Consult Stop: 02/14/19 19:24 Miscellaneous Information (Consult) 1 ea N/A UD PRN PRN Reason: Consult Stop: 02/14/19 19:24 Morphine Sulfate (Morphine Sulfate) 4 mg IV Q4H PRN PRN Reason: Pain Stop: 01/29/19 23:47 Nitroglycerin (Nitrostat) 0.4 mg SL UD PRN PRN Reason: Chest Pain Stop: 02/14/19 23:47 Oxycodone/Acetaminophen (Percocet 5mg/325mg) 1 tab PO Q4H PRN PRN Reason: Pain Stop: 01/29/19 23:47 Oxycodone/Acetaminophen (Percocet 5mg/325mg) 2 tab PO Q4 PRN PRN Reason: Pain Stop: 01/29/19 23:47 Pantoprazole Sodium (Protonix) 40 mg PO DAILY RAZ Stop: 02/15/19 08:59 Last Admin: 01/18/19 10:31 Dose: 40 mg Documented by: Prednisone (Prednisone) 20 mg PO DAILY RAZ Stop: 02/15/19 08:59 Last Admin: 01/18/19 10:30 Dose: 20 mg Documented by: Tamsulosin HCl (Flomax) 0.4 mg PO DAILY RAZ Stop: 02/15/19 08:59 Last Admin: 01/18/19 10:27 Dose: 0.4 mg Documented by: Theophylline (Sid-Dur Extended Rel) 300 mg PO BID RAZ Stop: 02/15/19 20:59 Last Admin: 01/18/19 10:34 Dose: 300 mg Documented by: Tiotropium [place] (Spiriva) 1 puffs INH QAM RAZ Stop: 02/16/19 08:59 Last Admin: 01/18/19 10:32 Dose: 1 puffs Documented by:
--- NOTE | 2019-01-18 12:24 | Pulmonology Progress Note ---
Date of Service January 18, 2019 Assessment & Plan (1) Squamous cell lung cancer: Patient diagnosed with squamous cell carcinoma via bronchoscopy July 2018 Patient failed to return calls and did not present for follow-up care for is newly diagnosed malignancy Developed shortness of breath and was seen at [facility] 12/26/2018 Transferred to [facility] for thoracentesis for large loculated effusion on the left 12/29/2018 patient underwent VATS procedure with partial pleurectomy and placement of chest tube and Pleurx drain POD #5 there is minimal drainage from the Pleurx catheter and MIST procedure was attempted with leakage around the tube so this was abandoned 01/08/2019 patient transferred to [facility] with scheduled follow- up with thoracic surgery 01/24/2019 01/15/2019 patient admitted to [facility] for complications from chest tubes Call placed to thoracic surgery team at [facility] Consult placed for Dr. Webber for evaluation Will remove chest tube and Pleurx catheter today and follow radiographically for recurrent pleural effusion. If recurrence of pleural effusion, will place new Pleurx catheter over the weekend and is much his fluid is malignant. A total of about 500 cc of pleural fluid has been evacuated into the pleural VAC since admission Oncology has stated that they will see the patient as an outpatient Anticipate removal of chest tube and Pleurx catheter later today (2) Complication of chest tube: Anticipate removal of chest tube and Pleurx catheter later today If fluid re-accumulates, will need Pleurx catheter replaced Follow serial x-rays Encounter type: initial encounter Qualified Code(s): T85.9XXA - Unspecified complication of internal prosthetic device, implant and graft, initial encounter (3) Pleural effusion: Loculated pleural effusion secondary to malignancy Previous thoracentesis with malignant fluid Thank you for including us in the care of this patient. We will continue to follow. Palliative consult has been placed. Disposition at this time is unknown regarding treatment of cancer or follow-up care. Please refer to Dr. Barriga's addendum for further recommendations Supervising Physician Co-Signing Physician Notes I saw and evaluated the patient with Mike Anderson, and agree with findings and plan as documented in the note. Patient states shortness of breath is better. No nausea or vomiting. Tolerating diet. Chest tube drained total of 520 mL since coming to the hospital. 200 mL in the last [address] surgery consulted for the removal of Pleurx catheter. Plan is to remove the chest tube and Pleurx catheter at the same time. See how more the fluid acclimates in the next couple of days and put in a new Pleurx catheter was there is enough fluid in the left pleural space. The skin of the patient is very friable mood because of chronic chest tube placement. Monitor with daily chest x-rays. Follow procalcitonin to see if he can de-escalate antibiotics. Continue with inhaled therapy for his underlying COPD. Patient is on theophylline for a long time from before, continue with it for the time being. I have spent more than 50% of this 30 minute encounter in counseling and/or coordination of care with patient. Subjective Attending: Dr. Barriga Patient seen at bedside eating lunch. Intermittent shortness of breath. Improvement with supplemental oxygen. Patient denies any productive cough. No hemoptysis. Patient denies any chest pain or pain at site of chest tube insertions. Patient continues drain through the chest tube to the Pleur-evac with a total of approximately 500 cc since admission. The patient has no other acute complaints today. Review of Systems Review of Systems: All systems reviewed & are unremarkable except as noted in HPI & below Physical Exam Physical Exam: GENERAL : No acute distress. Sitting at bedside eating lunch. No apparent aspiration with pured food. EYES: No icterus, gaze conjugate NOSE: No evidence of epistaxis MOUTH: No lesions or candidiasis NECK: Supple LUNGS: Decreased air entry B/L, no wheezes, rales or rhonchi. Chest tube and Pleurx catheter secured with no evidence of drainage around dressing. HEART: Regular, rate controlled ABDOMEN: Soft, NT, ND, BS Present EXTREMITIES: Bilateral LE edema, pedal pulses intact NEURO: A&OX3 Lymphatic: no cervical or axillary lymphadenopathy Results & Data Vital Signs (Past 12 Hours) Vital Signs Temp Pulse Resp BP BP Pulse Ox 01/18/19 11:01 36.4 C L 46 L 20 156/90 H 100 01/18/19 10:54 46 L 16 93 01/18/19 09:00 36.6 C 47 L 12 154/79 H 97 01/18/19 07:10 46 L 14 92 01/18/19 03:31 36.5 C 44 L 18 161/84 H 98 01/18/19 03:20 50 L 18 97 Laboratory Results 01/18/19 07:19 01/18/19 07:19 Diagnostic Findings XR chest 2V routine CLINICAL HISTORY: 73 years-old Male presenting with B/L pleural effusions; L chest tubes. TECHNIQUE: PA and lateral views of the chest were obtained. COMPARISON: 01/15/2019. FINDINGS: Two left pleural drains remain in position at the paramediastinal left midlung. Atherosclerosis of the aortic arch. Cardiac silhouette moderately enlarged. P ulmonary vascular prominence. Bilateral pleural effusions as on prior exam, which may be loculated on the left in moderate in size, only small on the right. Basilar predominant opacities are stable in the left and slightly decreased on the right. No pneumothorax. Osseous structures normal. Upper abdomen normal. IMPRESSION: 1. Slightly decreased right basilar infiltrates with persistent bilateral pleural effusions, moderate loculated on the left. 2. Cardiomegaly with megaly with slightly decreased volume overload. Electronically signed by: Zaheer Keys M.D. 01/17/2019 9:38 AM FL video swallow HISTORY: Pneumonia. assess for aspiration TECHNIQUE: Video fluoroscopic evaluation of swallowing was performed in the AP and lateral projections by the speech pathology staff. The patient is fed nectar-thick and thin liquid barium, a barium coated wafer, and barium pudding. FLUOROSCOPY TIME: 2.9 minutes. A cine loop submitted. COMPARISON STUDY: None. FINDINGS: Small amount of aspiration was demonstrated during the serial swallows of the thin liquid barium. This resulted in a cough. No aspiration identified with the nectar thick liquid barium, barium pudding, or barium coated cracker. Mild to moderate vallecular residue with the thicker barium consistencies. IMPRESSION: 1. Small amount of aspiration demonstrated during the serial swallows of the thin liquid barium. 2. Please see the speech pathologist report for detailed findings and recommendations. Electronically signed by: Owen Cedeno M.D. 01/16/2019 12:03 PM PG Care Time/CCT Total # of Minutes Spent Total Time Spent with Patient: Total time spent is greater than 50% in coordination of care (as documented) at patient's floor/unit and/or counseling patient: 30
--- NOTE | 2019-01-18 13:05 | Procedure Note ---
Procedure Note Date of Service January 18, 2019 Area around existing chest tube and pleurex was cleaned with ETOH sawb and anesthetized with 1% lidocaine (approx 5 cc at each site). A purse string suture was placed around each tube using 20-silk. The chest tube was removed without difficulty and purse string secured. Gentle tension was placed on the pleuex and the cuff was easily removed from the subcutaneous tissue. The catheter was then removed in in its entirety without difficuly and the purse string secured. An antimicrobial dressing was placed on each site and covered with sterile gauze and secured with medi-pore tape. The patient tolerated this well. Coding
--- NOTE | 2019-01-18 14:08 | Palliative Care Progress Note ---
Date of Service January 18, 2019 Assessment & Plan (1) Goals of care, counseling/discussion: Patient is a 73-year-old male with a past medical history of paroxysmal A. fib with bradycardia, COPD, squamous cell lung cancer diagnosed in July of this year in the left upper lobe, hypertension, HLD, GERD, BPH, and CHF. Patient was diagnosed with squamous cell lung cancer in July 2018 when he was having significant shortness of breath. Patient did not follow-up with oncology at that point. Patient reports that the Department of aging had center nurse after his landlord had made a referral-on their first visit on December 25 they noticed severe shortness of breath and he was sent to [facility]. Patient was hospitalized there from 12/1009. During that hospitalization he underwent a pleurectomy, chest tube placement, bronchoscopy, EGD, and thoracoscopy. Patient was then discharged to the [facility] for rehab. Patient states he was making progress and able to ambulate until this admission. Patient was having increased shortness of breath and was sent to the ER. Patient states his shortness of breath has improved since admission. Patient states he has 4 children, he has not had any contact with him. His last contact with his youngest son was when he retired at age 67. He does not know where they are located at this time. Patient lives in the [facility] alone. Patient states his POA is Jarrod Monk, who is a friend and distant relative -his contact number is [phone]. Patient states he does not have paperwork stating that Jarrod is his POA-put in a consult for service excellence to meet with patient and have appropriate paperwork signed. Patient is , did smoke 2 packs a day since age 25, had cut down to approximately 1 pack/day before he quit approximately 1 month ago. Patient has a greater than 90 pack year history. Patient states his prior weight was 211 pounds, he had dropped down to 160 pounds. Patient's weight on admission was 200 pounds-patient has been aggressively diuresed, his weight is down 27 pounds from admission, creatinine is stable. Patient stated the only time he is aware of his A. fib's with bradycardia is when he has to go up steps carrying his groceries. Patient reports he does not know anything about his cancer prognosis. He stated he had a friend who with lung cancer who is now in remission. Patient wants to start chemotherapy-but has not followed up with oncology since diagnosis in July. Oncology will see patient after discharge patient. Further discussions with the patient by pulmonary-patient is now a DNR/DNI -Goals of care-patient would like to be seen by oncology to discuss treatment options, did mention that if he was not interested in treatment or nothing was offered that he should consider hospice -Respiratory failure with hypoxia-improving on IV Lasix, adequate saturations on 3 L. Continue IV antibiotics and prednisone. Pleural effusions and COPD contributing -Squamous cell lung cancer-diagnosed in July 2018 in the left upper lobe, patient to follow-up as an outpatient with oncology to discuss treatment options and prognosis -Malignant pleural effusions-patient with Pleurx drains in place on the left- removed today, further plans per pulmonology -Bradycardia-A. fib with bradycardia, patient seen by cardiology -patient started on theophylline, heart rate remains in the 40s Will continue to follow and assist patient with medical decision making -plan to give patient information for outpatient palliative clinic follow-up when he is ready for discharge. (2) Acute hypoxemic respiratory failure: (3) Squamous cell lung cancer: (4) Malignant pleural effusion: (5) Bradycardia: Subjective Patient awake and alert, no acute distress. Patient reports his breathing feels better. Patient seen and examined this afternoon after both left chest drains pulled. Patient still interested in possibly pursuing chemotherapy-is to see oncology after discharge as an outpatient. Review of Systems Review of Systems: Patient denies fever, chills, chest pain, increased shortness of breath, or abdominal pain Lower extremity edema improving Physical Exam Physical Exam: PE: Patient awake and alert, NAD HEENT: EOMI, hearing within normal limits Respiratory: Diminished breath sounds right base, diminished breath sounds long term down on left. Respirations unlabored, on O2-patient did not have O2 on initially, help patient replace his nasal cannula CV: Bradycardic Abdomen: Soft, nontender Extremities: Market decrease in edema, no pitting on abdominal wall or thighs Neuro: No new deficits, patient with poor insight into his disease or current condition Results & Data Vital Signs (Past 12 Hours) Vital Signs Temp Pulse Pulse Resp BP BP Pulse Ox 01/18/19 11:01 97.5 F L 46 L 20 156/90 H 100 01/18/19 10:54 46 L 16 93 01/18/19 09:00 97.9 F 47 L 12 154/79 H 97 01/18/19 07:10 46 L 14 92 01/18/19 06:21 43 L 01/18/19 03:31 97.7 F 44 L 18 161/84 H 98 01/18/19 03:20 50 L 18 97 PG Care Time/CCT Total # of Minutes Spent Total Time Spent with Patient: Total time spent is greater than 50% in coordination of care (as documented) at patient's floor/unit and/or counseling patient: Total Time Total time spent 25 minutes with greater than 50% of the time spent at bedside assessing patient and reviewing current plan of care.
--- NOTE | 2019-01-18 14:38 | Pharmacy Report ---
Pharmacy Abx Dose Short Note - Date of Service January 18, 2019 - Assessment & Plan Assessment 73 year old M receiving vancomycin/zosyn for treatment of possible pneumonia. Normal WBC, afebrile. Chest tube removed today, possible de-escalation? Day # 4 of antimicrobial therapy. Plan Vancomycin * Trough level of 21.5 mcg/mL is supratherapeutic, however this trough was drawn ~7 hours from previous dose, predict "true" trough ~20 * Will reduce dose to 1000 mg q12H, as patient at upper-end of goal, reduced dose would still predict within 15-20 mcg/mL * Goal trough level 15-20 mcg/mL * Trough ordered for 01/20 @0830 Pharmacy will continue to follow and will adjust dose/frequency as necessary. Thank you.
[2019-01-18] MEDS: INSULIN GLARGINE SOLOSTAR 100 UNITS/ML 3 ML PEN SQ SCH (20:36)
[2019-01-18] MEDS: VANCOMYCIN HCL 1,000 MG in SODIUM CHLORIDE 0.9% 250 ML IV SCH (20:36)
[2019-01-19] MEDS: HEPARIN SODIUM/DEXTROSE 25,000 UNITS/500 ML BAG IV SCH ×2 (01:34→17:04)
[2019-01-19] MEDS: PIPERACILLIN/TAZOBACTAM 3.375 GM in DEXTROSE 5% 100 ML IV SCH ×3 (01:34→18:10)
[2019-01-19] MEDS: ALBUT/IPRATROP 3MG/0.5MG NEB 3 ML VIAL NEB SCH ×2 (03:19→06:58)
[2019-01-19 05:56] LABS: Partial Thromboplastin Ratio 1.9
[2019-01-19 06:00] LABS: Partial Thromboplastin Time 50.8 Seconds (21.0-31.0)
[2019-01-19 06:05] LABS: Creatinine Clr Calc Pharmacy 65.2 ml/min; Est GFR (African American) 74.6; Est GFR (Non-African American) 64.3
[2019-01-19] MEDS: INSULIN ASPART 100 UNITS/ML 3 ML PEN SC SCH ×4 (08:39→20:41)
[2019-01-19] MEDS: FOLIC ACID 1 MG TAB PO SCH (08:40)
[2019-01-19] MEDS: THEOPHYLLINE 300MG EXTENDED REL TAB PO SCH ×2 (08:40→20:41)
[2019-01-19] MEDS: TAMSULOSIN HCL 0.4 MG CAP PO SCH (08:41)
[2019-01-19] MEDS: PANTOprazole 40 MG TAB PO SCH (08:41)
[2019-01-19] MEDS: FUROSEMIDE 20 MG in SYRINGE 0 ML IV SCH (08:41)
[2019-01-19] MEDS: AMLODIPINE BESYLATE 5 MG TAB PO SCH (08:41)
[2019-01-19] MEDS: TIOTROPIUM BROMIDE 5 PUFF/90 MCG INH INH SCH (08:42)
[2019-01-19] MEDS: predniSONE 20 MG TAB PO SCH (08:42)
--- NOTE | 2019-01-19 08:43 | XRay Report ---
TWO VIEW CHEST CLINICAL HISTORY: Recurrent left pleural disease. FINDINGS: PA and lateral chest radiographs are compared to study dated 01/17/2019 and correlated with chest CT dated 01/15/2019. The heart is enlarged noting atherosclerotic calcification with uncoiling o f the thoracic aorta. There is mild pulmonary vascular congestion. Left-sided chest tubes have been r emoved. There are small pleural effusions with bibasilar consolidation. There is masslike consolidati on identified in the lingula along the left heart border. No pneumothorax is seen. The skeletal struc tures are osteopenic. The bony thorax appears intact. Degenerative change is noted in the thoracic sp ine. Enteric contrast is noted in the left colon. IMPRESSION: 1. Left-sided chest tubes have been removed. 2. Small pleural effusions with bibasilar consolidation. 3. There is masslike consolidation within the lingula. When correlated with the 01/15/2019 examination this is highly concerning for a large neoplasm/mass. 4. Cardiomegaly with mild pulmonary vascular congestion. Findings were discussed with Mike Anderson the patient has a known history of squamous cell lung cancer . Electronically signed by: Mike Chavarria M.D. 01/19/2019 8:42 AM
[2019-01-19] MEDS: VANCOMYCIN HCL 1,000 MG in SODIUM CHLORIDE 0.9% 250 ML IV SCH ×2 (08:46→20:42)
[2019-01-19] MEDS ORDERED: ALBUT/IPRATROP 3MG/0.5MG NEB 3 ML VIAL NEB PRN (08:59)
--- NOTE | 2019-01-19 10:48 | Pulmonology Progress Note ---
Date of Service January 19, 2019 Assessment & Plan (1) Squamous cell lung cancer: Patient diagnosed with squamous cell carcinoma via bronchoscopy July 2018 Patient failed to return calls and did not present for follow-up care for is newly diagnosed malignancy Developed shortness of breath and was seen at [facility] 12/26/2018 Transferred to [facility] for thoracentesis for large loculated effusion on the left 12/29/2018 patient underwent VATS procedure with partial pleurectomy and placement of chest tube and Pleurx drain POD #5 there is minimal drainage from the Pleurx catheter and MIST procedure was attempted with leakage around the tube so this was abandoned 01/08/2019 patient transferred to [facility] with scheduled follow- up with thoracic surgery 01/24/2019 01/15/2019 patient admitted to [facility] for complications from chest tubes Call placed to thoracic surgery team at [facility] Dr. Webber on board Chest tube in place catheter removed 02/14/2019. If recurrence of pleural effusion, will place new Pleurx catheter over the weekend and is much his fluid is malignant. Oncology has stated that they will see the patient as an outpatient (2) Complication of chest tube: Chest tube in place catheter removed 02/14/2019 If fluid re-accumulates, will need Pleurx catheter replaced Follow serial x-rays Encounter type: initial encounter Qualified Code(s): T85.9XXA - Unspecified complication of internal prosthetic device, implant and graft, initial encounter (3) Pleural effusion: Loculated pleural effusion secondary to malignancy Previous thoracentesis with malignant fluid Subjective Patient seen and examined at bedside. No acute distress, no adverse events overnight. Patient was sleeping at the time of initiation of examination. Patient denies any chest pain, mild shortness of breath, no headache, no nausea, no vomiting. Appetite good. Eating well. Patient has a Johnson. Patient saturating 98% on 2 L nasal cannula with heart rate of 50 at rest. No labs from today. Review of Systems Review of Systems: All systems reviewed & are unremarkable except as noted in HPI & below Physical Exam Physical Exam: GENERAL : No acute distress. Cachectic EYES: No icterus, gaze conjugate NOSE: No evidence of epistaxis MOUTH: No lesions or candidiasis NECK: Supple LUNGS: Decreased air entry B/L, no wheeze, no rhonchi, positive mild crackles bilaterally HEART: S1-S2 positive, bradycardia, no murmurs appreciated, accentuated P2 ABDOMEN: Soft, NT, ND, BS Present EXTREMITIES: Bilateral +3 LE edema, pedal pulses intact NEURO: Awake alert and oriented x3 G/U: Positive Johnson Lymphatic: no cervical or axillary lymphadenopathy Results & Data Vital Signs (Past 12 Hours) Vital Signs Temp Pulse Pulse Pulse Pulse Resp BP 01/19/19 07:09 36.6 C 44 L 20 01/19/19 07:00 45 L 16 01/19/19 06:24 45 L 01/19/19 03:38 37 C 45 L 45 L 45 L 20 153/79 H 01/19/19 03:19 41 L 16 01/18/19 23:16 36.6 C 46 L 19 01/18/19 23:00 42 L 18 BP BP Pulse Ox 01/19/19 07:09 172/84 H 98 01/19/19 07:00 87 L 01/19/19 06:24 01/19/19 03:38 153/79 H 153/79 H 97 01/19/19 03:19 93 01/18/19 23:16 154/75 H 96 01/18/19 23:00 99 Laboratory Results 01/18/19 07:19 01/19/19 05:23 01/19/19 01/19/19 01/19/19 Range/Units 07:06 05:23 05:23 APTT 50.8 H* (21.0-31.0) Seconds PTT Ratio 1.9 Creatinine 1.14 (0.6-1.4) mg/dl Est Cr Clr Drug Dosing 65.2 ml/min Est GFR ( Amer) 74.6 Est GFR (Non-Af Amer) 64.3 POC Glucose 82 (70-99) 01/18/19 01/18/19 01/18/19 Range/Units 20:18 16:22 10:59 APTT (21.0-31.0) Seconds PTT Ratio Creatinine (0.6-1.4) mg/dl Est Cr Clr Drug Dosing ml/min Est GFR ( Amer) Est GFR (Non-Af Amer) POC Glucose 141 H 115 H 127 H (70-99) PG Care Time/CCT Total # of Minutes Spent Total Time Spent with Patient: Total time spent is greater than 50% in coordination of care (as documented) at patient's floor/unit and/or counseling patient:
--- NOTE | 2019-01-19 12:20 | Hospitalist Progress Note ---
Date of Service January 19, 2019 Assessment & Plan (1) Acute and chronic respiratory failure: Likely secondary to lung carcinoma with pleural effusion mostly in the right side Remains stable (2) Malignant pleural effusion: Patient diagnosed with squamous cell carcinoma via bronchoscopy July 2018 Has been noncompliant with follow-up and subsequent events go on as follows: Was seen at [facility] 12/26/2018 with increasing shortness of breath Transferred to [facility] for thoracentesis for large loculated effusion on the left 12/29/2018 patient underwent VATS procedure with partial pleurectomy and placement of chest tube and Pleurx drain POD #5 there is minimal drainage from the Pleurx catheter and MIST procedure was attempted with leakage around the tube so this was abandoned 01/08/2019 patient transferred to [facility] with scheduled follow- up with thoracic surgery 01/24/2019 01/15/2019 patient admitted to [facility] for complications from chest tubes Appreciate pulmonary input and recommendation Likely to have thoracic surgery evaluation for consideration of management of chest tubes and Pleurx catheter Discussed with oncologist We will have outpatient appointment for further evaluation and management of lung cancer Appreciate palliative care input and recommendation Appreciate thoracic surgery input and recommendation; likely to have extraction of the chest tube and Pleurx catheter Status post infusion of chest tube and Pleurx catheter on 01/18 Remains stable Continue current management (3) Pneumonia: Present on admission with worsening SOB S/P chest tube placement CT chest extensive peribronchovascular consolidation most prominently in the lower lobes though also to varying degrees throughout the remaining lobes. Extensive endobronchial debris in the lower lobes, which may represent mucous plugging, aspiration, or infectious debris. Bilateral pleural effusions, loculated on the left with pleural drains in place. Has been on intravenous Zosyn and vancomycin Pulmonology on board Continue oxygen supplement, Neb treatment Video swallow did show minimal aspiration; will follow the recommendation Diastolic CHF Evidence of fluid overload mostly due to anasarca due to profound hypoalbuminemia CXR showed cardiomegaly with evidence of congestive failure. Continue lasix IV BID Monitor I/O Bradycardia Last admission at [facility] not a candidate for pacemaker insertion given extremely poor prognosis of underlying malignancy with malignant pleural effusion Cardiology on board and agreed that pt not a good candidate for pacemaker due to poor prognosis Theophylline to help with the heart rate Continue monitor in tele No indication for pacemaker placement Will decrease the theophylline dose as per supplier relationship director Heart rate remains around 40s Paroxysmal Afib Heart rate has been running low Eliquis on hold in case pt will need procedure On heparin drip for now Stable Hypertension Controlled with current medication DVT px on heparin drip for now We will continue heparin drip for now Discussed with the patient And now he is a DNR Prognosis remains poor Subjective 01/17 The patient was seen and examined in telemetry unit He has been complaining of shortness of breath but denies any chest pain and/or palpitation Denies any abdominal pain nausea or vomiting Feels little bit better since admission 01/18 The patient was seen and examined in telemetry He has been feeling a lot better Still complains some pain in the left chest but denies any shortness of breath at rest No fever and/or chills Heart rate remains around 40 01/19 The patient was seen and examined in the telemetry unit He remains generally weak and lethargic Complains some pain at the right lateral chest wall Denies any significant shortness of breath Review of Systems Review of Systems: All systems reviewed and unremarkable except as noted below Constitutional: + fatigue, + weakness, + anorexia and + weight loss Respiratory: + cough and + dyspnea (Minimal at rest) Neurologic: + generalized weakness and + confusion (Pleasantly confused) Physical Exam Constitutional: well developed and + ill appearing; no acute distress Eyes: PERRL, conjunctivae normal, anicteric sclerae ENMT: external ear and nose normal, oropharynx normal Neck: trachea midline, no thyromegaly Respiratory: + respiratory distress and + dullness to percussion (On right side) Auscultation: + diminished lung sounds and + crackles (Mostly on the right side) Cardiovascular: Rate/Rhythm: regular rate, regular rhythm and + bradycardic Heart Sounds: no murmur Gastrointestinal (Abdomen): Inspection/Auscultation: abdomen normal to inspection; abdomen not distended Percussion/Palpation: abdomen soft Neurologic: moves all extremities Lymphatic: no cervical or axillary lymphadenopathy Results & Data Vital Signs (Past 12 Hours) Vital Signs Temp Pulse Pulse Pulse Pulse Resp BP 01/19/19 11:15 36.3 C L 48 L 22 01/19/19 07:09 36.6 C 44 L 20 01/19/19 07:00 45 L 16 01/19/19 06:24 45 L 01/19/19 03:38 37 C 45 L 45 L 45 L 20 153/79 H 01/19/19 03:19 41 L 16 BP BP Pulse Ox 01/19/19 11:15 143/70 H 96 01/19/19 07:09 172/84 H 98 01/19/19 07:00 87 L 01/19/19 06:24 01/19/19 03:38 153/79 H 153/79 H 97 01/19/19 03:19 93 Laboratory Results BMP 01/19/19 05:23 Creatinine 1.14 Medications Administered Current Inpatient Medications Acetaminophen (Tylenol) 650 mg PO Q4H PRN PRN Reason: Pain or Fever Stop: 02/14/19 23:47 Albuterol (Duoneb) 3 ml NEB Q4R PRN PRN Reason: Shortness Of Breath Or Wheezing Stop: 02/14/19 23:47 Amlodipine Besylate (Norvasc) 10 mg PO QAM RAZ Stop: 02/15/19 08:59 Last Admin: 01/19/19 08:41 Dose: 10 mg Documented by: Dextrose (Dextrose 50%) 25 - 50 ml IV UD PRN; Protocol PRN Reason: Hypoglycemia Protocol Stop: 02/15/19 00:14 Dextrose (Dextrose 50%) 25 - 50 ml IV UD PRN; Protocol PRN Reason: Hypoglycemia Protocol Stop: 02/15/19 20:49 Folic Acid (Folvite) 1 mg PO DAILY [facility] Stop: 02/15/19 08:59 Last Admin: 01/19/19 08:40 Dose: 1 mg Documented by: Glucagon (Glucagen) 1 mg IM UD PRN; Protocol PRN Reason: Hypoglycemia Protocol Stop: 02/15/19 00:14 Glucagon (Glucagen) 1 mg SQ UD PRN; Protocol PRN Reason: Hypoglycemia Protocol Stop: 02/15/19 20:49 Glucose (Glucose 40%) 15 - 30 gm PO UD PRN; Protocol PRN Reason: Hypoglycemia Protocol Stop: 02/15/19 00:14 Glucose (Dex4 Glucose) 4 - 8 tabs PO UD PRN; Protocol PRN Reason: Hypoglycemia Protocol Stop: 02/15/19 00:14 Glucose (Glucose 40%) 15 - 30 gm PO UD PRN; Protocol PRN Reason: Hypoglycemia Protocol Stop: 02/15/19 20:49 Glucose (Dex4 Glucose) 4 - 8 tabs PO UD PRN; Protocol PRN Reason: Hypoglycemia Protocol Stop: 02/15/19 20:49 Hydralazine HCl (Apresoline) 25 mg PO TID [facility] Stop: 02/17/19 13:59 Last Admin: 01/19/19 08:40 Dose: 25 mg Documented by: Promethazine HCl 12.5 mg/ (Sodium Chloride) 50.5 mls @ 202 mls/hr IV Q6H PRN PRN Reason: Nausea And Vomiting Stop: 02/14/19 23:47 Heparin Sodium/Dextrose (Heparin Sodium/Dextrose) 25,000 units in 500 mls @ 34 mls/hr IV .[id number] [facility]; Protocol Stop: 02/14/19 23:47 Last Admin: 01/19/19 01:34 Dose: 1,700 units/hr, 34 mls/hr Documented by: Piperacillin Sod/Tazobactam (Sod 3.375 gm/ Dextrose) 115 mls @ 28.75 mls/hr IV Q8H [facility]; Protocol Stop: 01/23/19 01:59 Last Admin: 01/19/19 10:59 Dose: 28.8 mls/hr Documented by: Furosemide 20 mg/ Syringe 2 mls @ 4 mls/min IV DAILY RAZ Stop: 02/17/19 11:14 Last Admin: 01/19/19 08:41 Dose: 4 mls/min Documented by: Vancomycin HCl 1,000 mg/ (Sodium Chloride) 270 mls @ 125 mls/hr IV Q12H [facility] Stop: 01/25/19 20:59 Last Infusion: 01/19/19 10:59 Dose: Infused Documented by: Insulin Aspart (Novolog Flexpen) 0 units SC ACHS [facility]Z Stop: 02/16/19 07:29 Last Admin: 01/19/19 08:39 Dose: 1 units Documented by: Insulin Glargine (Lantus Solostar Pen) 5 units SQ HS [facility] Stop: 02/15/19 20:59 Last Admin: 01/18/19 20:36 Dose: 5 units Documented by: Miscellaneous (Carbohydrates For Hypoglycemia) 15 - 30 gm PO UD PRN PRN Reason: Hypoglycemia Treatment Stop: 02/15/19 00:14 Miscellaneous (Carbohydrates For Hypoglycemia) 15 - 30 gm PO UD PRN PRN Reason: Hypoglycemia Treatment Stop: 02/15/19 20:49 Miscellaneous Information (Consult) 1 ea N/A UD PRN PRN Reason: Consult Stop: 02/14/19 19:24 Miscellaneous Information (Consult) 1 ea N/A UD PRN PRN Reason: Consult Stop: 02/14/19 19:24 Morphine Sulfate (Morphine Sulfate) 4 mg IV Q4H PRN PRN Reason: Pain Stop: 01/29/19 23:47 Nitroglycerin (Nitrostat) 0.4 mg SL UD PRN PRN Reason: Chest Pain Stop: 02/14/19 23:47 Oxycodone/Acetaminophen (Percocet 5mg/325mg) 1 tab PO Q4H PRN PRN Reason: Pain Stop: 01/29/19 23:47 Oxycodone/Acetaminophen (Percocet 5mg/325mg) 2 tab PO Q4 PRN PRN Reason: Pain Stop: 01/29/19 23:47 Pantoprazole Sodium (Protonix) 40 mg PO DAILY RAZ Stop: 02/15/19 08:59 Last Admin: 01/19/19 08:41 Dose: 40 mg Documented by: Prednisone (Prednisone) 20 mg PO DAILY RAZ Stop: 02/15/19 08:59 Last Admin: 01/19/19 08:42 Dose: 20 mg Documented by: Tamsulosin HCl (Flomax) 0.4 mg PO DAILY [facility]Z Stop: 02/15/19 08:59 Last Admin: 01/19/19 08:41 Dose: 0.4 mg Documented by: Theophylline (Sid-Dur Extended Rel) 300 mg PO BID RAZ Stop: 02/15/19 20:59 Last Admin: 01/19/19 08:40 Dose: 300 mg Documented by: Tiotropium [place] (Spiriva) 1 puffs INH QAM [facility] Stop: 02/16/19 08:59 Last Admin: 01/19/19 08:42 Dose: 1 puffs Documented by:
--- NOTE | 2019-01-19 14:35 | Palliative Care Progress Note ---
Date of Service January 19, 2019 Assessment & Plan (1) Goals of care, counseling/discussion: Patient is a 73-year-old male with a past medical history of paroxysmal A. fib with bradycardia, COPD, squamous cell lung cancer diagnosed in July of this year in the left upper lobe, hypertension, HLD, GERD, BPH, and CHF. Patient was diagnosed with squamous cell lung cancer in July 2018 when he was having significant shortness of breath. Patient did not follow-up with oncology at that point. Patient reports that the Department of aging had center nurse after his landlord had made a referral-on their first visit on December 25 they noticed severe shortness of breath and he was sent to [facility]. Patient was hospitalized there from 12/1009. During that hospitalization he underwent a pleurectomy, chest tube placement, bronchoscopy, EGD, and thoracoscopy. Patient was then discharged to the [facility] for rehab. Patient states he was making progress and able to ambulate until this admission. Patient was having increased shortness of breath and was sent to the ER. Patient states his shortness of breath has improved since admission. Patient states he has 4 children, he has not had any contact with him. His last contact with his youngest son was when he retired at age 67. He does not know where they are located at this time. Patient lives in the [facility] alone. Patient states his POA is Jarrod Monk, who is a friend and distant relative -his contact number is [phone]. Patient is , did smoke 2 packs a day since age 25, had cut down to approximately 1 pack/day before he quit approximately 1 month ago. Patient has a greater than 90 pack year history. Patient states his prior weight was 211 pounds, he had dropped down to 160 pounds. Patient's weight on admission was 200 pounds-patient has been aggressively diuresed, his weight is down 27 pounds from admission, creatinine is stable. Weight increased 1.5 pounds from yesterday. Patient's heart rate remains in the 40s-was started on theophylline. Patient reports he does not know anything about his cancer prognosis. He stated he had a friend who with lung cancer who is now in remission. Patient wants to start chemotherapy-but has not followed up with oncology since diagnosis in July. Oncology will see patient after discharge patient. Patient agreeable to changing CODE STATUS to DNR after conversation with pulmonology. Collaborated with attending physician-plan will be for patient to return back to [facility] to continue his rehab if medically stable over the weekend. He will have a outpatient oncology appointment scheduled prior to discharge. We will plan to fill out a POLST form prior to discharge -Goals of care-patient would like to be seen by oncology to discuss treatment options, did mention that if he was not interested in treatment or nothing was offered that he should consider hospice -Respiratory failure with hypoxia-improving on IV Lasix, adequate saturations on 3 L. Patient frequently removes his O2. Continue IV antibiotics and prednisone. Monitoring recurrence of pleural effusions since chest tubes removed -Squamous cell lung cancer-diagnosed in July 2018 in the left upper lobe, patient to follow-up as an outpatient with oncology to discuss treatment options and prognosis -Malignant pleural effusions-patient with Pleurx drains in place on the left- removed on 01/18, further plans per pulmonology -Bradycardia-A. fib with bradycardia, patient seen by cardiology -patient started on theophylline, heart rate remains in the 40s Will continue to follow and assist patient with medical decision making -plan to complete a POLST form prior to discharge , ongoing discussions regarding hospice care depending on outcome of his oncology visit. (2) Acute hypoxemic respiratory failure: (3) Squamous cell lung cancer: (4) Malignant pleural effusion: (5) Bradycardia: Subjective Patient seen and examined in room 216-patient appears comfortable, no acute distress. Patient continues to remove his O2 Patient without any new complaints. Review of Systems Review of Systems: Patient denies pain, fever, chills, chest pain, increased shortness of breath, or abdominal pain. Patient states his breathing is improving Physical Exam Physical Exam: PE: Awake and alert, no acute distress HEENT: EOMI, hearing within normal limits Respirations: Improved breath sounds bilaterally, still short of breath with conversation but improving CV: Regular rate, lower extremity edema improving, continues to have upper extremity edema unchanged Abdomen: Soft, nontender Extremities: Lower extremity edema continues to improve Neuro: Alert and oriented Results & Data Vital Signs (Past 12 Hours) Vital Signs Temp Pulse Pulse Pulse Pulse Resp BP 01/19/19 11:15 97.3 F L 48 L 22 01/19/19 07:09 97.9 F 44 L 20 01/19/19 07:00 45 L 16 01/19/19 06:24 45 L 01/19/19 03:38 98.6 F 45 L 45 L 45 L 20 153/79 H 01/19/19 03:19 41 L 16 BP BP Pulse Ox 01/19/19 11:15 143/70 H 96 01/19/19 07:09 172/84 H 98 01/19/19 07:00 87 L 01/19/19 06:24 01/19/19 03:38 153/79 H 153/79 H 97 01/19/19 03:19 93 PG Care Time/CCT Total # of Minutes Spent Total Time Spent with Patient: Total time spent is greater than 50% in coordination of care (as documented) at patient's floor/unit and/or counseling patient: Time Spent Attending Total time spent 35 minutes with greater than 50% of time spent at bedside discussing patient's current condition and treatment options.
[2019-01-19] MEDS: INSULIN GLARGINE SOLOSTAR 100 UNITS/ML 3 ML PEN SQ SCH (20:39)
[2019-01-20] MEDS: PIPERACILLIN/TAZOBACTAM 3.375 GM in DEXTROSE 5% 100 ML IV SCH ×3 (01:30→17:41)
[2019-01-20] MEDS: HEPARIN SODIUM/DEXTROSE 25,000 UNITS/500 ML BAG IV SCH ×2 (05:03→20:17)
[2019-01-20] MEDS: INSULIN ASPART 100 UNITS/ML 3 ML PEN SC SCH ×4 (08:07→21:43)
[2019-01-20] MEDS: AMLODIPINE BESYLATE 5 MG TAB PO SCH (08:11)
[2019-01-20] MEDS: TAMSULOSIN HCL 0.4 MG CAP PO SCH (08:12)
[2019-01-20] MEDS: FUROSEMIDE 20 MG in SYRINGE 0 ML IV SCH (08:12)
[2019-01-20] MEDS: FOLIC ACID 1 MG TAB PO SCH (08:12)
[2019-01-20] MEDS: THEOPHYLLINE 300MG EXTENDED REL TAB PO SCH (08:13)
[2019-01-20] MEDS: PANTOprazole 40 MG TAB PO SCH (08:13)
[2019-01-20] MEDS: predniSONE 20 MG TAB PO SCH (08:13)
[2019-01-20] MEDS: TIOTROPIUM BROMIDE 5 PUFF/90 MCG INH INH SCH (08:13)
[2019-01-20] MEDS ORDERED: VANCOMYCIN TROUGH ONE (08:30)
[2019-01-20] MEDS: VANCOMYCIN HCL 1,000 MG in SODIUM CHLORIDE 0.9% 250 ML IV SCH (09:00)
[2019-01-20 09:06] LABS: Partial Thromboplastin Ratio 1.7
[2019-01-20 09:10] LABS: Partial Thromboplastin Time 45.2 Seconds (21.0-31.0)
[2019-01-20 09:20] LABS: Calcium 9.2 mg/dl (8.5-10.1); Creatinine Clr Calc Pharmacy 60.5 ml/min; Est GFR (Non-African American) 58.7; Magnesium 1.8 mg/dl (1.8-2.4); Phosphorus 2.9 mg/dl (2.5-4.9); Potassium 3.6 mmol/L (3.5-5.1)
--- NOTE | 2019-01-20 09:40 | XRay Report ---
XR chest 2V routine CLINICAL HISTORY: Recurrent left pleural effusion COMPARISON STUDY: 01/19/2019 FINDINGS: The heart remains enlarged. There is a persistent masslike opacity within the lingula. Ther e are bilateral pleural effusions. There is left lower lobe consolidation.[Mild pulmonary vascular co ngestion is suspected IMPRESSION: 1. Cardiomegaly and small bilateral pleural effusions 2. Left lower lobe consolidation 3. Lingular masslike opacity, possibly neoplastic. Electronically signed by: Aravind See M.D. 01/20/2019 9:38 AM
--- NOTE | 2019-01-20 10:18 | Hospitalist Progress Note ---
Date of Service January 20, 2019 Assessment & Plan (1) Acute and chronic respiratory failure: Likely secondary to lung carcinoma with pleural effusion mostly in the right side Remains stable (2) Malignant pleural effusion: Patient diagnosed with squamous cell carcinoma via bronchoscopy July 2018 Has been noncompliant with follow-up and subsequent events go on as follows: Was seen at [facility] 12/26/2018 with increasing shortness of breath Transferred to [facility] for thoracentesis for large loculated effusion on the left 12/29/2018 patient underwent VATS procedure with partial pleurectomy and placement of chest tube and Pleurx drain POD #5 there is minimal drainage from the Pleurx catheter and MIST procedure was attempted with leakage around the tube so this was abandoned 01/08/2019 patient transferred to [facility] with scheduled follow- up with thoracic surgery 01/24/2019 01/15/2019 patient admitted to [facility] for complications from chest tubes Appreciate pulmonary input and recommendation Likely to have thoracic surgery evaluation for consideration of management of chest tubes and Pleurx catheter Discussed with oncologist We will have outpatient appointment for further evaluation and management of lung cancer Appreciate palliative care input and recommendation Appreciate thoracic surgery input and recommendation; likely to have extraction of the chest tube and Pleurx catheter Status post infusion of chest tube and Pleurx catheter on 01/18 Remains stable Continue current management Repeat chest x-ray is not showing any reaccumulation of pleural fluid (3) Pneumonia: Present on admission with worsening SOB S/P chest tube placement CT chest extensive peribronchovascular consolidation most prominently in the lower lobes though also to varying degrees throughout the remaining lobes. Extensive endobronchial debris in the lower lobes, which may represent mucous plugging, aspiration, or infectious debris. Bilateral pleural effusions, loc ulated on the left with pleural drains in place. Has been on intravenous Zosyn and vancomycin Pulmonology on board Continue oxygen supplement, Neb treatment Video swallow did show minimal aspiration; will follow the recommendation Has been following recommended diet Diastolic CHF Evidence of fluid overload mostly due to anasarca due to profound hypoalbuminemia CXR showed cardiomegaly with evidence of congestive failure. Continue lasix IV BID Monitor I/O -has been diuresing Kidney function remains stable Bradycardia Last admission at [facility] not a candidate for pacemaker insertion given extremely poor prognosis of underlying malignancy with malignant pleural effusion Cardiology on board and agreed that pt not a good candidate for pacemaker due to poor prognosis Theophylline to help with the heart rate Continue monitor in tele No indication for pacemaker placement Will decrease the theophylline dose as per glass wool blanket machine feeder Heart rate remains around 40s Paroxysmal Afib Heart rate has been running low Eliquis on hold in case pt will need procedure On heparin drip for now Stable Hypertension Controlled with current medication DVT px on heparin drip for now We will continue heparin drip for now Will be put back on Eliquis on discharge Discussed with the patient And now he is a DNR Prognosis remains poor Subjective 01/17 The patient was seen and examined in telemetry unit He has been complaining of shortness of breath but denies any chest pain and/or palpitation Denies any abdominal pain nausea or vomiting Feels little bit better since admission 01/18 The patient was seen and examined in telemetry He has been feeling a lot better Still complains some pain in the left chest but denies any shortness of breath at rest No fever and/or chills Heart rate remains around 40 01/19 The patient was seen and examined in the telemetry unit He remains generally weak and lethargic Complains some pain at the right lateral chest wall Denies any significant shortness of breath 01/20 Patient was seen and examined in telemetry unit He remains stable following removal of chest tube and Pleurx catheter Minimal pain right lateral chest wall Chest x-ray is not showing any reaccumulation of pleural fluid Review of Systems Review of Systems: All systems reviewed and unremarkable except as noted below Constitutional: + fatigue, + weakness, + anorexia and + weight loss Respiratory: + cough and + dyspnea (Minimal at rest) Neurologic: + generalized weakness and + confusion (Pleasantly confused) Physical Exam Physical Exam: Lying in bed comfortably with generalized weakness Constitutional: well developed and + ill appearing; no acute distress Eyes: PERRL, conjunctivae normal, anicteric sclerae ENMT: external ear and nose normal, oropharynx normal Neck: trachea midline, no thyromegaly Respiratory: + respiratory distress and + dullness to percussion (On right side) Auscultation: + diminished lung sounds and + crackles (Mostly on the right side); no rhonchi Cardiovascular: Rate/Rhythm: regular rate, regular rhythm and + bradycardic Heart Sounds: no murmur Gastrointestinal (Abdomen): Inspection/Auscultation: abdomen normal to insp ection; abdomen not distended Percussion/Palpation: abdomen soft Musculoskeletal: Denies any arthritis involving any of the joints Neurologic: moves all extremities Psychiatric: Orientation: alert Lymphatic: no cervical or axillary lymphadenopathy Results & Data Vital Signs (Past 12 Hours) Vital Signs Temp Pulse Pulse Resp BP BP Pulse Ox 01/20/19 06:53 36.6 C 4 L 20 177/82 H 98 01/20/19 03:50 36.4 C L 43 L 20 153/74 H 90 01/19/19 23:04 36.4 C L 43 L 20 162/78 H 98 Laboratory Results [facility] 01/20/19 08:31 Sodium 134 L Potassium 3.6 Chloride 95 L Carbon Dioxide 31 BUN 22 H Creatinine 1.23 Glucose 126 H Calcium 9.2 Medications Administered Current Inpatient Medications Acetaminophen (Tylenol) 650 mg PO Q4H PRN PRN Reason: Pain or Fever Stop: 02/14/19 23:47 Albuterol (Duoneb) 3 ml NEB Q4R PRN PRN Reason: Shortness Of Breath Or Wheezing Stop: 02/14/19 23:47 Amlodipine Besylate (Norvasc) 10 mg PO QAM [facility] Stop: 02/15/19 08:59 Last Admin: 01/20/19 08:11 Dose: 10 mg Documented by: Dextrose (Dextrose 50%) 25 - 50 ml IV UD PRN; Protocol PRN Reason: Hypoglycemia Protocol Stop: 02/15/19 00:14 Dextrose (Dextrose 50%) 25 - 50 ml IV UD PRN; Protocol PRN Reason: Hypoglycemia Protocol Stop: 02/15/19 20:49 Folic Acid (Folvite) 1 mg PO DAILY [facility] Stop: 02/15/19 08:59 Last Admin: 01/20/19 08:12 Dose: 1 mg Documented by: Glucagon (Glucagen) 1 mg IM UD PRN; Protocol PRN Reason: Hypoglycemia Protocol Stop: 02/15/19 00:14 Glucagon (Glucagen) 1 mg SQ UD PRN; Protocol PRN Reason: Hypoglycemia Protocol Stop: 02/15/19 20:49 Glucose (Glucose 40%) 15 - 30 gm PO UD PRN; Protocol PRN Reason: Hypoglycemia Protocol Stop: 02/15/19 00:14 Glucose (Dex4 Glucose) 4 - 8 tabs PO UD PRN; Protocol PRN Reason: Hypoglycemia Protocol Stop: 02/15/19 00:14 Glucose (Glucose 40%) 15 - 30 gm PO UD PRN; Protocol PRN Reason: Hypoglycemia Protocol Stop: 02/15/19 20:49 Glucose (Dex4 Glucose) 4 - 8 tabs PO UD PRN; Protocol PRN Reason: Hypoglycemia Protocol Stop: 02/15/19 20:49 Hydralazine HCl (Apresoline) 25 mg PO TID [facility] Stop: 02/17/19 13:59 Last Admin: 01/20/19 08:11 Dose: 25 mg Documented by: Promethazine HCl 12.5 mg/ (Sodium Chloride) 50.5 mls @ 202 mls/hr IV Q6H PRN PRN Reason: Nausea And Vomiting Stop: 02/14/19 23:47 Heparin Sodium/Dextrose (Heparin Sodium/Dextrose) 25,000 units in 500 mls @ 34 mls/hr IV .[id number] [facility]; Protocol Stop: 02/14/19 23:47 Last Admin: 01/20/19 05:03 Dose: 1,700 units/hr, 34 mls/hr Documented by: Piperacillin Sod/Tazobactam (Sod 3.375 gm/ Dextrose) 115 mls @ 28.75 mls/hr IV Q8H [facility]; Protocol Stop: 01/23/19 01:59 Last Infusion: 01/20/19 05:32 Dose: Infused Documented by: Furosemide 20 mg/ Syringe 2 mls @ 4 mls/min IV DAILY [facility] Stop: 02/17/19 11:14 Last Admin: 01/20/19 08:12 Dose: 4 mls/min Documented by: Vancomycin HCl 1,000 mg/ (Sodium Chloride) 270 mls @ 125 mls/hr IV Q12H [facility] Stop: 01/25/19 20:59 Last Admin: 01/20/19 09:00 Dose: 125 mls/hr Documented by: Insulin Aspart (Novolog Flexpen) 0 units SC ACHS [facility] Stop: 02/16/19 07:29 Last Admin: 01/20/19 08:07 Dose: 1 units Documented by: Insulin Glargine (Lantus Solostar Pen) 5 units SQ HS [facility] Stop: 02/15/19 20:59 Last Admin: 01/19/19 20:39 Dose: 5 units Documented by: Miscellaneous (Carbohydrates For Hypoglycemia) 15 - 30 gm PO UD PRN PRN Reason: Hypoglycemia Treatment Stop: 02/15/19 00:14 Miscellaneous (Carbohydrates For Hypoglycemia) 15 - 30 gm PO UD PRN PRN Reason: Hypoglycemia Treatment Stop: 02/15/19 20:49 Miscellaneous Information (Consult) 1 ea N/A UD PRN PRN Reason: Consult Stop: 02/14/19 19:24 Miscellaneous Information (Consult) 1 ea N/A UD PRN PRN Reason: Consult Stop: 02/14/19 19:24 Morphine Sulfate (Morphine Sulfate) 4 mg IV Q4H PRN PRN Reason: Pain Stop: 01/29/19 23:47 Nitroglycerin (Nitrostat) 0.4 mg SL UD PRN PRN Reason: Chest Pain Stop: 02/14/19 23:47 Oxycodone/Acetaminophen (Percocet 5mg/325mg) 1 tab PO Q4H PRN PRN Reason: Pain Stop: 01/29/19 23:47 Oxycodone/Acetaminophen (Percocet 5mg/325mg) 2 tab PO Q4 PRN PRN Reason: Pain Stop: 01/29/19 23:47 Pantoprazole Sodium (Protonix) 40 mg PO DAILY [facility] Stop: 02/15/19 08:59 Last Admin: 01/20/19 08:13 Dose: 40 mg Documented by: Prednisone (Prednisone) 20 mg PO DAILY [facility] Stop: 02/15/19 08:59 Last Admin: 01/20/19 08:13 Dose: 20 mg Documented by: Tamsulosin HCl (Flomax) 0.4 mg PO DAILY [facility] Stop: 02/15/19 08:59 Last Admin: 01/20/19 08:12 Dose: 0.4 mg Documented by: Theophylline (Sid-Dur Extended Rel) 300 mg PO BID [facility] Stop: 02/15/19 20:59 Last Admin: 01/20/19 08:13 Dose: 300 mg Documented by: Tiotropium [place] (Spiriva) 1 puffs INH QAM [facility] Stop: 02/16/19 08:59 Last Admin: 01/20/19 08:13 Dose: 1 puffs Documented by:
--- NOTE | 2019-01-20 10:26 | Pharmacy Report ---
Pharmacy Abx Dose Short Note - Date of Service January 20, 2019 - Assessment & Plan Assessment 73 year old M receiving Vancomycin and Zosyn for treatment of possible aspiration pna in setting of lung cancer. Day # 6 of antimicrobial therapy. CXR today still shows consolidation in left lower lobe. Renal fxn remains stable. Weight continues to fluctuate 2/2 to fluid accumulation. Laboratory Tests 01/20/19 08:31 Vancomycin Trough 24.4 Plan Vancomycin * Trough level of 24.4 mcg/mL is supratherapeutic. * Change to 1000 mg IV every 14 hours (estimate that trough may still be on the higher end of the goal range, so will delay start of new dosing interval by an hour). * Goal trough level : 15 to 20 mcg/mL * Trough level will be ordered when appropriate if patient is still on vancomycin therapy. Pharmacy will continue to follow and will adjust dose/frequency as necessary. Thank you.
--- NOTE | 2019-01-20 10:44 | Pulmonology Progress Note ---
Date of Service January 20, 2019 Assessment & Plan (1) Squamous cell lung cancer: Patient diagnosed with squamous cell carcinoma via bronchoscopy July 2018 Patient failed to return calls and did not present for follow-up care for is newly diagnosed malignancy Developed shortness of breath and was seen at [facility] 12/26/2018 Transferred to [facility] for thoracentesis for large loculated effusion on the left 12/29/2018 patient underwent VATS procedure with partial pleurectomy and placement of chest tube and Pleurx drain POD #5 there is minimal drainage from the Pleurx catheter and MIST procedure was attempted with leakage around the tube so this was abandoned 01/08/2019 patient transferred to [facility] with scheduled follow- up with thoracic surgery 01/24/2019 01/15/2019 patient admitted to [facility] for complications from chest tubes Call placed to thoracic surgery team at [facility] Dr. Webber on board Chest tube and PleurX catheter removed 02/14/2019. Oncology has stated that they will see the patient as an outpatient (2) Complication of chest tube: Chest tube in place catheter removed 02/14/2019 If fluid re-accumulates, will need Pleurx catheter replaced Follow serial x-rays Encounter type: initial encounter Qualified Code(s): T85.9XXA - Unspecified complication of internal prosthetic device, implant and graft, initial encounter (3) Pleural effusion: Loculated pleural effusion secondary to malignancy Previous thoracentesis with malignant fluid Subjective Patient seen and examined at bedside. No acute distress, no adverse events overnight Patient was again found to be sleeping at the time of examination of oxygen. Patient saturation was 83% on room air with a heart rate of 40 at the time of examination. Patient denies any chest pain, says shortness of breath is at baseline. No nausea or vomiting. Tolerating diet. Review of Systems Review of Systems: All systems reviewed & are unremarkable except as noted in HPI & below Physical Exam Physical Exam: GENERAL : No acute distress. Cachectic EYES: No icterus, gaze conjugate NOSE: No evidence of epistaxis MOUTH: No lesions or candidiasis NECK: Supple LUNGS: Decreased air entry B/L, no wheeze, no rhonchi, positive mild crackles bilaterally HEART: S1-S2 positive, bradycardia, no murmurs appreciated, accentuated P2 ABDOMEN: Soft, NT, ND, BS Present EXTREMITIES: Bilateral +3 LE edema, pedal pulses intact NEURO: Awake alert and oriented x3 G/U: Positive Johnson Lymphatic: no cervical or axillary lymphadenopathy Results & Data Vital Signs (Past 12 Hours) Vital Signs Temp Pulse Pulse Resp BP BP Pulse Ox 01/20/19 06:53 36.6 C 4 L 20 177/82 H 98 01/20/19 03:50 36.4 C L 43 L 20 153/74 H 90 01/19/19 23:04 36.4 C L 43 L 20 162/78 H 98 Laboratory Results 01/18/19 07:19 01/20/19 08:31 PG Care Time/CCT Total # of Minutes Spent Total Time Spent with Patient: Total time spent is greater than 50% in coordination of care (as documented) at patient's floor/unit and/or counseling patient:
[2019-01-20] MEDS: THEOPHYLLINE 400 MG EXTENDED REL TAB PO SCH (21:42)
[2019-01-20] MEDS: INSULIN GLARGINE SOLOSTAR 100 UNITS/ML 3 ML PEN SQ SCH (21:42)
[2019-01-21] MEDS: VANCOMYCIN HCL 1,000 MG in SODIUM CHLORIDE 0.9% 250 ML IV SCH ×2 (00:07→13:45)
[2019-01-21] MEDS: PIPERACILLIN/TAZOBACTAM 3.375 GM in DEXTROSE 5% 100 ML IV SCH ×3 (03:09→17:32)
--- NOTE | 2019-01-21 07:31 | XRay Report ---
XR chest 1V portable HISTORY: f/u effusion COMPARISON: Chest 01/20/2019. FINDINGS: The heart remains enlarged. Bilateral pleural effusions and bibasilar densities persist. Mi ld interstitial pulmonary edema remains unchanged. Lingular masslike opacity is also unchanged. IMPRESSION: 1. Cardiomegaly and small bilateral pleural effusions, unchanged. 2. Linear masslike opacity, possibly neoplastic is again noted. 3. Bibasilar airspace opacities persist. Electronically signed by: Owen Cedeno M.D. 01/21/2019 7:30 AM
[2019-01-21 07:42] LABS: Creatinine Clr Calc Pharmacy 70.8 ml/min; Est GFR (African American) 82.4; Est GFR (Non-African American) 71.1
[2019-01-21] MEDS: INSULIN ASPART 100 UNITS/ML 3 ML PEN SC SCH ×4 (07:52→20:46)
[2019-01-21] MEDS: FUROSEMIDE 20 MG in SYRINGE 0 ML IV SCH (07:56)
[2019-01-21] MEDS: AMLODIPINE BESYLATE 5 MG TAB PO SCH (07:56)
[2019-01-21] MEDS: PANTOprazole 40 MG TAB PO SCH (07:56)
[2019-01-21] MEDS: TAMSULOSIN HCL 0.4 MG CAP PO SCH (07:56)
[2019-01-21] MEDS: FOLIC ACID 1 MG TAB PO SCH (07:56)
[2019-01-21] MEDS: predniSONE 20 MG TAB PO SCH (07:56)
[2019-01-21] MEDS: TIOTROPIUM BROMIDE 5 PUFF/90 MCG INH INH SCH (07:57)
[2019-01-21] MEDS: THEOPHYLLINE 400 MG EXTENDED REL TAB PO SCH ×2 (07:57→20:40)
[2019-01-21 08:02] LABS: Partial Thromboplastin Ratio 1.7
[2019-01-21 08:04] LABS: Partial Thromboplastin Time 45.8 Seconds (21.0-31.0)
[2019-01-21] MEDS ORDERED: Nursing to Pharmacy Communication ONE (08:21)
[2019-01-21] MEDS ORDERED: Heparin IV BOLUS 0 units in Syringe 0 mL IV ONE (08:45)
[2019-01-21] MEDS: HEPARIN SODIUM/DEXTROSE 25,000 UNITS/500 ML BAG IV SCH ×2 (10:25→23:56)
--- NOTE | 2019-01-21 10:32 | Hospitalist Progress Note ---
Date of Service January 21, 2019 Assessment & Plan (1) Acute and chronic respiratory failure: Likely secondary to lung carcinoma with pleural effusion mostly in the right side Remains stable (2) Malignant pleural effusion: Patient diagnosed with squamous cell carcinoma via bronchoscopy July 2018 Has been noncompliant with follow-up and subsequent events go on as follows: Was seen at [facility] 12/26/2018 with increasing shortness of breath Transferred to [facility] for thoracentesis for large loculated effusion on the left 12/29/2018 patient underwent VATS procedure with partial pleurectomy and placement of chest tube and Pleurx drain POD #5 there is minimal drainage from the Pleurx catheter and MIST procedure was attempted with leakage around the tube so this was abandoned 01/08/2019 patient transferred to [facility] with scheduled follow- up with thoracic surgery 01/24/2019 01/15/2019 patient admitted to [facility] for complications from chest tubes Appreciate pulmonary input and recommendation Likely to have thoracic surgery evaluation for consideration of management of chest tubes and Pleurx catheter Discussed with oncologist We will have outpatient appointment for further evaluation and management of lung cancer Appreciate palliative care input and recommendation Appreciate thoracic surgery input and recommendation; likely to have extraction of the chest tube and Pleurx catheter Status post infusion of chest tube and Pleurx catheter on 01/18 Clinically stable with symptomatic improvement Repeat chest x-ray tomorrow to rule out significant pleural effusion (3) Pneumonia: Present on admission with worsening SOB S/P chest tube placement CT chest extensive peribronchovascular consolidation most prominently in the lower lobes though also to varying degrees throughout the remaining lobes. Extensive endobronchial debris in the lower lobes, which may represent mucous plugging, aspiration, or infectious debris. Bilateral pleural effusions, loculated on the left with pleural drains in place. Has been on intravenous Zosyn and vancomycin Pulmonology on board Continue oxygen supplement, Neb treatment Video swallow did show minimal aspiration; will follow the recommendation Has been following recommended diet We will continue antibiotics for now Diastolic CHF Evidence of fluid overload mostly due to anasarca due to profound hypoalbu minemia CXR showed cardiomegaly with evidence of congestive failure. Continue lasix IV BID Monitor I/O -has been diuresing Kidney function remains stable Bradycardia Last admission at [facility] not a candidate for pacemaker insertion given extremely poor prognosis of underlying malignancy with malignant pleural effusion Cardiology on board and agreed that pt not a good candidate for pacemaker due to poor prognosis Theophylline to help with the heart rate Continue monitor in tele No indication for pacemaker placement Will decrease the theophylline dose as per rigging man Heart rate remains around 40s Theophylline dose has been decreased to 400 mg once a day Heart rate remains at 40s Paroxysmal Afib Heart rate has been running low Eliquis on hold in case pt will need procedure On heparin drip for now Stable Hypertension Controlled with current medication DVT px on heparin drip for now We will continue heparin drip for now Will be put back on Eliquis on discharge Discussed with the patient And now he is a DNR Prognosis remains poor We will get PT and OT evaluation Likely to need placement at discharge Subjective 01/17 The patient was seen and examined in telemetry unit He has been complaining of shortness of breath but denies any chest pain and/or palpitation Denies any abdominal pain nausea or vomiting Feels little bit better since admission 01/18 The patient was seen and examined in telemetry He has been feeling a lot better Still complains some pain in the left chest but denies any shortness of breath at rest No fever and/or chills Heart rate remains around 40 01/19 The patient was seen and examined in the telemetry unit He remains generally weak and lethargic Complains some pain at the right lateral chest wall Denies any significant shortness of breath 01/20 Patient was seen and examined in telemetry unit He remains stable following removal of chest tube and Pleurx catheter Minimal pain right lateral chest wall Chest x-ray is not showing any reaccumulation of pleural fluid 01/21 Patient was seen and examined in telemetry unit He has been feeling a lot better but still remains weak and lethargic Denies any significant pain and/or shortness of breath Review of Systems Review of Systems: All systems reviewed and unremarkable except as noted below Constitutional: + fatigue, + weakness, + anorexia and + weight loss Respiratory: + cough and + dyspnea (Minimal at rest) Neurologic: + generalized weakness and + confusion (Pleasantly confused) Physical Exam Physical Exam: Lying in bed with minimal shortness of breath at rest Constitutional: well developed and + ill appearing; no acute distress Eyes: PERRL, conjunctivae normal, anicteric sclerae ENMT: external ear and nose normal, oropharynx normal Neck: trachea midline, no thyromegaly Respiratory: + respiratory distress and + dullness to percussion (On right side) Auscultation: + diminished lung sounds and + crackles (Mostly on the right side); no rhonchi Cardiovascular: Rate/Rhythm: regular rate, regular rhythm and + bradycardic Heart Sounds: no murmur Gastrointestinal (Abdomen): Inspection/Auscultation: abdomen normal to inspection; abdomen not distended Percussion/Palpation: abdomen soft Musculoskeletal: No acute arthritis in any of the joints Neurologic: moves all extremities Remains pleasantly confused Psychiatric: Orientation: alert Lymphatic: no cervical or axillary lymphadenopathy Results & Data Vital Signs (Past 12 Hours) Vital Signs Temp Pulse Resp BP Pulse Ox 01/21/19 07:35 92 01/21/19 07:34 36.5 C 46 L 22 157/81 H 88 L 01/21/19 03:11 36.5 C 44 L 18 154/73 H 90 01/20/19 23:16 36.5 C 44 L 20 153/79 H 92
--- NOTE | 2019-01-21 11:37 | Pulmonology Progress Note ---
Date of Service January 21, 2019 Assessment & Plan (1) Squamous cell lung cancer: Patient diagnosed with squamous cell carcinoma via bronchoscopy July 2018 Patient failed to return calls and did not present for follow-up care for is newly diagnosed malignancy Developed shortness of breath and was seen at [facility] 12/26/2018 Transferred to [facility] for thoracentesis for large loculated effusion on the left 12/29/2018 patient underwent VATS procedure with partial pleurectomy and placement of chest tube and Pleurx drain POD #5 there is minimal drainage from the Pleurx catheter and MIST procedure was attempted with leakage around the tube so this was abandoned 01/08/2019 patient transferred to [facility] with scheduled follow- up with thoracic surgery 01/24/2019 01/15/2019 patient admitted to [facility] for complications from chest tubes Call placed to thoracic surgery team at [facility] Dr. Webber on board Chest tube and PleurX catheter removed 02/14/2019. Oncology has stated that they will see the patient as an outpatient (2) Complication of chest tube: Chest tube in place catheter removed 02/14/2019 If fluid re-accumulates, will need Pleurx catheter replaced Follow serial x-rays Plan for Pleurx catheter to be placed on the left side possibly Tuesday or Tuesday. Encounter type: initial encounter Qualified Code(s): T85.9XXA - Unspecified complication of internal prosthetic device, implant and graft, initial encounter (3) Pleural effusion: Loculated pleural effusion secondary to malignancy Previous thoracentesis with malignant fluid Subjective Patient seen and examined at bedside. No acute distress, no adverse events overnight. Patient was again sleeping at the time of examination. Saturating 94% on 2 L nasal cannula with heart rate of 48 at rest. Shortness of breath as per the patient is at baseline. Denies any chest pain, no headache, no nausea, no vomiting. Tolerating diet. No headache or dizziness. Review of Systems Review of Systems: All systems reviewed & are unremarkable except as noted in HPI & below Physical Exam Lymphatic: no cervical or axillary lymphadenopathy Results & Data Vital Signs (Past 12 Hours) Vital Signs Temp Pulse Resp BP Pulse Ox 01/21/19 11:28 36.5 C 48 L 20 151/72 H 94 01/21/19 07:35 92 01/21/19 07:34 36.5 C 46 L 22 157/81 H 88 L 10/06/19 03:11 36.5 C 44 L 18 154/73 H 90 Laboratory Results Microbiology 01/17/19 20:05 Sputum, Expectorated Gram Stain - Final 01/17/19 20:05 Sputum, Expectorated Sputum Culture - Final Samantha albicans This does not need any therapy. 01/18/19 07:19 01/21/19 06:44 PG Care Time/CCT Total # of Minutes Spent Total Time Spent with Patient: Total time spent is greater than 50% in coord ination of care (as documented) at patient's floor/unit and/or counseling patient:
--- NOTE | 2019-01-21 12:21 | Progress Note ---
DATE: 01/21/2019 Mr. Kohli was seen today on 01/21/2019. Mr. Kohli has widely metastatic disease with a left malignant pleural effusion and probable malignant right pleural effusion. He underwent a thoracoscopy down in [place] and did not stop draining from his chest tube and was discharged to a fci with the [facility] collection chamber in place. He does state that did not work well. Three days ago, we removed both his PleurX catheter which is placed at the time of surgery which was not draining as well as his chest tube. His respiratory status has not really changed. He is 94% on 2 liters. He does not appear uncomfortable. He states his breathing is "about the same." He does have decreased breath sounds in both bases. His x-ray really does not look much different. At this point, I would hold off putting anything. This patient has an extremely short survival time. Typically, malignant effusions have survival time measured usually less than 100 days when it from lung cancer. Given the fact that we are not even treating him, I do not think that I would be aggressive in managing this fluid. If it increases in his pulmonary status become continuous, I would be glad to insert a PleurX at bedside.
[2019-01-21 14:47] LABS: Partial Thromboplastin Ratio 1.8
[2019-01-21 14:48] LABS: Partial Thromboplastin Time 48.1 Seconds (21.0-31.0)
[2019-01-21] MEDS: INSULIN GLARGINE SOLOSTAR 100 UNITS/ML 3 ML PEN SQ SCH (20:45)
[2019-01-22] MEDS: PIPERACILLIN/TAZOBACTAM 3.375 GM in DEXTROSE 5% 100 ML IV SCH (01:59)
[2019-01-22] MEDS: VANCOMYCIN HCL 1,000 MG in SODIUM CHLORIDE 0.9% 250 ML IV SCH (03:53)
[2019-01-22 06:34] LABS: Eosinophils # (auto) 0.08 K/uL (0-0.5); Eosinophils % (auto) 1.5 %; Hematocrit (blood only) 33.9 % (42-52); Hemoglobin 10.3 g/dL (14.0-18.0); Immature Granulocytes # (auto) 0.02 K/uL (0.00-0.02); Immature Granulocytes % (auto) 0.4 %; Lymphocytes # (auto) 0.52 K/uL (1.2-3.4); Lymphocytes % (auto) 9.8 %; Mean Corpuscular Hemoglobin 24.8 pg (25-34); Mean Corpuscular Hgb Conc 30.4 g/dL (32-36); Mean Corpuscular Volume 81.5 fL (80-100); Monocytes # (auto) 0.66 K/uL (0.11-0.59); Monocytes % (auto) 12.4 %; Neutrophils # (auto) 4.04 K/uL (1.4-6.5); Neutrophils % (auto) 75.9 %; Platelet Count 126 K/uL (130-400); RDW Coefficient of Variation 20.6 % (11.5-14.5); RDW Standard Deviation 60.4 fL (36.4-46.3); Red Blood Count 4.16 M/uL (4.7-6.1); White Blood Count 5.32 K/uL (4.8-10.8)
[2019-01-22 06:53] LABS: Partial Thromboplastin Ratio 2.1
[2019-01-22 07:00] LABS: Partial Thromboplastin Time 56.1 Seconds (21.0-31.0)
[2019-01-22 07:02] LABS: Albumin Level 1.9 gm/dl (3.4-5.0); BUN Creatinine Ratio 15.6 (10-20); Calcium 8.4 mg/dl (8.5-10.1); Creatinine Clr Calc Pharmacy 55.5 ml/min; Est GFR (African American) 61.3; Est GFR (Non-African American) 52.9; Potassium 3.5 mmol/L (3.5-5.1)
[2019-01-22 07:03] LABS: Albumin Globulin Ratio 0.5 (0.9-2); Bilirubin,Total 0.5 mg/dl (0.2-1); Globulin 3.5 gm/dl (2.5-4.0); Total Protein 5.4 gm/dl (6.4-8.2)
[2019-01-22 07:13] LABS: Anisocytosis Present; Ovalocytes 1+
[2019-01-22] MEDS: FUROSEMIDE 20 MG in SYRINGE 0 ML IV SCH (08:03)
[2019-01-22] MEDS: INSULIN ASPART 100 UNITS/ML 3 ML PEN SC SCH ×4 (08:04→20:43)
[2019-01-22] MEDS: AMLODIPINE BESYLATE 5 MG TAB PO SCH (08:05)
[2019-01-22] MEDS: PANTOprazole 40 MG TAB PO SCH (08:05)
[2019-01-22] MEDS: predniSONE 20 MG TAB PO SCH (08:05)
[2019-01-22] MEDS: THEOPHYLLINE 400 MG EXTENDED REL TAB PO SCH ×2 (08:06→20:40)
[2019-01-22] MEDS: FOLIC ACID 1 MG TAB PO SCH (08:06)
[2019-01-22] MEDS: TAMSULOSIN HCL 0.4 MG CAP PO SCH (08:06)
[2019-01-22] MEDS: TIOTROPIUM BROMIDE 5 PUFF/90 MCG INH INH SCH (09:30)
--- NOTE | 2019-01-22 10:42 | Progress Note ---
DATE: 01/22/2019 Mr. Kohli was seen today. He has tonsils, actually got down to room air with 90% saturations. I discussed this case with Dr. Patrick. This patient is at end of life. We are not actively treating his markedly metastatic carcinoma of the lung. At this point, if I thought it would help him, I would place a PleurX catheter, but I do not think it is going to give him much relief. I would supplement his oxygen. If he runs into a problem, I will be glad to reconsider perhaps place a PleurX catheter, but at this point, I would recommend holding off on any intervention. He is 99% saturation on 2 liters.
[2019-01-22] MEDS: CEFDINIR 300 MG CAP PO SCH ×2 (10:44→20:41)
--- NOTE | 2019-01-22 11:57 | Hospitalist Progress Note ---
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 Has been noncompliant with follow-up and subsequent events go on as follows: Was seen at [facility] 12/26/2018 with increasing shortness of breath Transferred to [facility] for thoracentesis for large loculated effusion on the left 12/29/2018 patient underwent VATS procedure with partial pleurectomy and placement of chest tube and Pleurx drain POD #5 there is minimal drainage from the Pleurx catheter and MIST procedure was attempted with leakage around the tube so this was abandoned 01/08/2019 patient transferred to [facility] with scheduled follow- up with thoracic surgery 01/24/2019 01/15/2019 patient admitted to [facility] for complications from chest tubes Appreciate pulmonary input and recommendation Likely to have thoracic surgery evaluation for consideration of management of chest tubes and Pleurx catheter Discussed with oncologist We will have outpatient appointment for further evaluation and management of lung cancer Appreciate palliative care input and recommendation Appreciate thoracic surgery input and recommendation; likely to have extraction of the chest tube and Pleurx catheter Status post infusion of chest tube and Pleurx catheter on 01/18 Clinically stable with symptomatic improvement Repeat chest x-ray on did not show any increase in pleural effusion Discussed with thoracic surgery-no need to have Pleurx catheter right now (3) Pneumonia: Present on admission with worsening SOB S/P chest tube placement CT chest extensive peribronchovascular consolidation most prominently in the lower lobes though also to varying degrees throughout the remaining lobes. Extensive endobronchial debris in the lower lobes, which may represent mucous plugging, aspiration, or infectious debris. Bilateral pleural effusions, loculated on the left with pleural drains in place. Has been on intravenous Zosyn and vancomycin Pulmonology on board Continue oxygen supplement, Neb treatment Video swallow did show minimal aspiration; will follow the recommendation Has been following recommended diet We will continue antibiotics for now Will DC vancomycin and Zosyn Cefdinir 300 mg twice daily has been started to finish a course of 14 days Diastolic CHF Evidence of fluid overload mostly due to anasarca due to profound hypoalbuminemia CXR showed cardiomegaly with evidence of congestive failure. Continue lasix IV BID Monitor I/O -has been diuresing Kidney function remains stable Bradycardia Last admission at [facility] not a candidate for pacemaker insertion given extremely poor prognosis of underlying malignancy with malignant pleural effusion Cardiology on board and agreed that pt not a good candidate for pacemaker due to poor prognosis Theophylline to help with the heart rate Continue monitor in tele No indication for pacemaker placement Will decrease the theophylline dose as per tester rocket engine Heart rate remains around 40s Theophylline dose has been decreased to 200 mg 2 times a day Heart rate remains at 40s No acute bradyarrhythmias Paroxysmal Afib Heart rate has been running low Eliquis on hold in case pt will need procedure On heparin drip for now Stable Hypertension Controlled with current medication DVT px on heparin drip for now We will continue heparin drip for now Will be put back on Eliquis on discharge Discussed with the patient And now he is a DNR Prognosis remains poor We will get PT and OT evaluation Likely to need placement at discharge Subjective 01/17 The patient was seen and examined in telemetry unit He has been complaining of shortness of breath but denies any chest pain and/or palpitation Denies any abdominal pain nausea or vomiting Feels little bit better since admission 01/18 The patient was seen and examined in telemetry He has been feeling a lot better Still complains some pain in the left chest but denies any shortness of breath at rest No fever and/or chills Heart rate remains around 40 01/19 The patient was seen and examined in the telemetry unit He remains generally weak and lethargic Complains some pain at the right lateral chest wall Denies any significant shortness of breath 01/20 Patient was seen and examined in telemetry unit He remains stable following removal of chest tube and Pleurx catheter Minimal pain right lateral chest wall Chest x-ray is not showing any reaccumulation of pleural fluid 01/21 Patient was seen and examined in telemetry unit He has been feeling a lot better but still remains weak and lethargic Denies any significant pain and/or shortness of breath 01/22 Patient was seen and examined in telemetry unit He has been feeling a lot better without any significant shortness of breath and denies any pain Remains reasonably weak and lethargy Start PT and OT evaluation Review of Systems Review of Systems: All systems reviewed and unremarkable except as noted below Constitutional: + fatigue, + weakness, + anorexia and + weight loss Respiratory: + cough and + dyspnea (Minimal at rest) Cardiovascular: no chest pain Gastrointestinal: no abdominal pain Musculoskeletal: No acute pain in any of the joints Neurologic: + generalized weakness and + confusion (Pleasantly confused) Physical Exam Physical Exam: No apparent distress at rest Constitutional: well developed and + ill appearing; no acute distress Eyes: PERRL, conjunctivae normal, anicteric sclerae ENMT: external ear and nose normal, oropharynx normal Neck: trachea midline, no thyromegaly Respiratory: + dullness to percussion (On right side); no respiratory distress Auscultation: + diminished lung sounds and + crackles (Mostly on the right side); no rhonchi Cardiovascular: Rate/Rhythm: regular rate, regular rhythm and + bradycardic Heart Sounds: no murmur Gastrointestinal (Abdomen): Inspection/Auscultation: abdomen normal to inspection; abdomen not distended Percussion/Palpation: abdomen soft Musculoskeletal: No acute arthritis in any joints Neurologic: moves all extremities Psychiatric: Orientation: alert Lymphatic: no cervical or axillary lymphadenopathy Results & Data Vital Signs (Past 12 Hours) Vital Signs Temp Pulse Pulse Pulse Resp BP Pulse Ox 01/22/19 11:42 01/22/19 11:28 36.3 C L 45 L 20 146/69 H 99 01/22/19 07:25 42 L 01/22/19 07:23 36.4 C L 44 L 17 159/76 H 99 01/22/19 03:48 36.6 C 45 L 19 146/73 H 90 Pulse Ox 01/22/19 11:42 95 01/22/19 11:28 01/22/19 07:25 01/22/19 07:23 01/22/19 03:48 Laboratory Results Short CBC 01/22/19 Range/Units 06:06 WBC 5.32 (4.8-10.8) K/uL Hgb 10.3 L (14.0-18.0) g/dL Hct 33.9 L (42-52) % Plt Count 126 L (130-400) K/uL BMP 01/22/19 06:06 Sodium 136 Potassium 3.5 Chloride 95 L Carbon Dioxide 35 H BUN 21 H Creatinine 1.34 Glucose 84 Calcium 8.4 L Liver Function 01/22/19 Range/Units 06:06 Total Bilirubin 0.5 (0.2-1) mg/dl AST 11 L (15-37) U/L ALT 28 (12-78) U/L Alkaline Phosphatase 106 (45-117) U/L Albumin 1.9 L (3.4-5.0) gm/dl Medications Administered Current Inpatient Medications Acetaminophen (Tylenol) 650 mg PO Q4H PRN PRN Reason: Pain or Fever Stop: 02/14/19 23:47 Albuterol (Duoneb) 3 ml NEB Q4R PRN PRN Reason: Shortness Of Breath Or Wheezing Stop: 02/14/19 23:47 Amlodipine Besylate (Norvasc) 10 mg PO QAM RAZ Stop: 02/15/19 08:59 Last Admin: 01/22/19 08:05 Dose: 10 mg Documented by: Cefdinir (Omnicef Cap) 300 mg PO BID RAZ; Protocol Stop: 01/29/19 09:44 Last Admin: 01/22/19 10:44 Dose: 300 mg Documented by: Dextrose (Dextrose 50%) 25 - 50 ml IV UD PRN; Protocol PRN Reason: Hypoglycemia Protocol Stop: 02/15/19 00:14 Dextrose (Dextrose 50%) 25 - 50 ml IV UD PRN; Protocol PRN Reason: Hypoglycemia Protocol Stop: 02/15/19 20:49 Folic Acid (Folvite) 1 mg PO DAILY [facility] Stop: 02/15/19 08:59 Last Admin: 01/22/19 08:06 Dose: 1 mg Documented by: Glucagon (Glucagen) 1 mg IM UD PRN; Protocol PRN Reason: Hypoglycemia Protocol Stop: 02/15/19 00:14 Glucagon (Glucagen) 1 mg SQ UD PRN; Protocol PRN Reason: Hypoglycemia Protocol Stop: 02/15/19 20:49 Glucose (Glucose 40%) 15 - 30 gm PO UD PRN; Protocol PRN Reason: Hypoglycemia Protocol Stop: 02/15/19 00:14 Glucose (Dex4 Glucose) 4 - 8 tabs PO UD PRN; Protocol PRN Reason: Hypoglycemia Protocol Stop: 02/15/19 00:14 Glucose (Glucose 40%) 15 - 30 gm PO UD PRN; Protocol PRN Reason: Hypoglycemia Protocol Stop: 02/15/19 20:49 Glucose (Dex4 Glucose) 4 - 8 tabs PO UD PRN; Protocol PRN Reason: Hypoglycemia Protocol Stop: 02/15/19 20:49 Hydralazine HCl (Apresoline) 25 mg PO TID [facility] Stop: 02/17/19 13:59 Last Admin: 01/22/19 08:05 Dose: 25 mg Documented by: Promethazine HCl 12.5 mg/ (Sodium Chloride) 50.5 mls @ 202 mls/hr IV Q6H PRN PRN Reason: Nausea And Vomiting Stop: 02/14/19 23:47 Heparin Sodium/Dextrose (Heparin Sodium/Dextrose) 25,000 units in 500 mls @ 37 mls/hr IV .[id number] [facility]; Protocol Stop: 02/14/19 23:47 Last Titration: 01/22/19 07:03 Dose: 1,850 units/hr, 37 mls/hr Documented by: Furosemide 20 mg/ Syringe 2 mls @ 4 mls/min IV DAILY [facility] Stop: 02/17/19 11:14 Last Admin: 01/22/19 08:03 Dose: 4 mls/min Documented by: Insulin Aspart (Novolog Flexpen) 0 units SC ACHS [facility] Stop: 02/16/19 07:29 Last Admin: 01/22/19 08:04 Dose: 1 units Documented by: Insulin Glargine (Lantus Solostar Pen) 5 units SQ HS [facility] Stop: 02/15/19 20:59 Last Admin: 01/21/19 20:45 Dose: 5 units Documented by: Miscellaneous (Carbohydrates For Hypoglycemia) 15 - 30 gm PO UD PRN PRN Reason: Hypoglycemia Treatment Stop: 02/15/19 00:14 Miscellaneous (Carbohydrates For Hypoglycemia) 15 - 30 gm PO UD PRN PRN Reason: Hypoglycemia Treatment Stop: 02/15/19 20:49 Morphine Sulfate (Morphine Sulfate) 4 mg IV Q4H PRN PRN Reason: Pain Stop: 01/29/19 23:47 Nitroglycerin (Nitrostat) 0.4 mg SL UD PRN PRN Reason: Chest Pain Stop: 02/14/19 23:47 Oxycodone/Acetaminophen (Percocet 5mg/325mg) 1 tab PO Q4H PRN PRN Reason: Pain Stop: 01/29/19 23:47 Oxycodone/Acetaminophen (Percocet 5mg/325mg) 2 tab PO Q4 PRN PRN Reason: Pain Stop: 01/29/19 23:47 Pantoprazole Sodium (Protonix) 40 mg PO DAILY RAZ Stop: 02/15/19 08:59 Last Admin: 01/22/19 08:05 Dose: 40 mg Documented by: Prednisone (Prednisone) 20 mg PO DAILY RAZ Stop: 02/15/19 08:59 Last Admin: 01/22/19 08:05 Dose: 20 mg Documented by: Tamsulosin HCl (Flomax) 0.4 mg PO DAILY RAZ Stop: 02/15/19 08:59 Last Admin: 01/22/19 08:06 Dose: 0.4 mg Documented by: Theophylline (Theophylline Er) 200 mg PO BID RAZ Stop: 02/19/19 20:59 Last Admin: 01/22/19 08:06 Dose: 200 mg Documented by: Tiotropium [place] (Spiriva) 1 puffs INH QAM RAZ Stop: 02/16/19 08:59 Last Admin: 01/22/19 09:30 Dose: 1 puffs Documented by:
--- NOTE | 2019-01-22 12:19 | Pulmonology Progress Note ---
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 Patient failed to return calls and did not present for follow-up care for is newly diagnosed malignancy Developed shortness of breath and was seen at [facility] 12/26/2018 Transferred to [facility] for thoracentesis for large loculated effusion on the left 12/29/2018 patient underwent VATS procedure with partial pleurectomy and placement of chest tube and Pleurx drain POD #5 there is minimal drainage from the Pleurx catheter and MIST procedure was attempted with leakage around the tube so this was abandoned 01/08/2019 patient transferred to [facility] with scheduled follow- up with thoracic surgery 01/24/2019 01/15/2019 patient admitted to [facility] for complications from chest tubes Call placed to thoracic surgery team at [facility] Dr. Webber on board Chest tube and PleurX catheter removed 02/14/2019. Oncology has stated that they will see the patient as an outpatient No role for chest tube at this time. It also seems his effusions are loculated and most of the densities seen on xray are consolidative or tumor which would not benefit from a chest tube. Overall prognosis seems very poor. Would defer further management of pleural effusions until he is seen by oncology. Functional status seems very poor. Palliative care/hospice would seem appropriate. Will sign off at this time. Please call with questions. Thank you. (2) Complication of chest tube: Encounter type: initial encounter Qualified Code(s): T85.9XXA - Unspecified complication of internal prosthetic device, implant and graft, initial encounter (3) Pleural effusion: Loculated pleural effusion secondary to malignancy Previous thoracentesis with malignant fluid Subjective Patient laying in bed. Denies any complaint. No significant dyspnea when supine. No chest pain. No nausea or vomiting. Physical Exam Constitutional: + lethargic and + malnourished Eyes: PERRL, conjunctivae normal, anicteric sclerae ENMT: external ear and nose normal, oropharynx normal Neck: normal visual inspection Respiratory: Diffuse crackles Cardiovascular: 2+ pitting edema. Dontrell. Irregular. Gastrointestinal (Abdomen): normal bowel sounds, soft, nontender, no hepatosplenomegaly Musculoskeletal: Head/Neck/Chest: normocephalic Neurologic: CN's II-XI intact bilaterally Psychiatric: A+Ox3, euthymic affect Results & Data Vital Signs (Past 12 Hours) Vital Signs Temp Pulse Pulse Pulse Resp BP Pulse Ox 01/22/19 11:42 01/22/19 11:28 97.3 F L 45 L 20 146/69 H 99 01/22/19 07:25 42 L 01/22/19 07:23 97.5 F L 44 L 17 159/76 H 99 01/22/19 03:48 97.9 F 45 L 19 146/73 H 90 Pulse Ox 01/22/19 11:42 95 01/22/19 11:28 01/22/19 07:25 01/22/19 07:23 01/22/19 03:48 CBC, BMP and cxr reviewed PG Care Time/CCT Total # of Minutes Spent Total Time Spent with Patient: Total time spent is greater than 50% in coordination of care (as documented) at patient's floor/unit and/or counseling patient:
[2019-01-22] MEDS: HEPARIN SODIUM/DEXTROSE 25,000 UNITS/500 ML BAG IV SCH (14:26)
[2019-01-22] MEDS ORDERED: VANCOMYCIN TROUGH ONE (17:30)
[2019-01-22] MEDS: INSULIN GLARGINE SOLOSTAR 100 UNITS/ML 3 ML PEN SQ SCH (20:43)
[2019-01-23] MEDS: HEPARIN SODIUM/DEXTROSE 25,000 UNITS/500 ML BAG IV SCH (03:35)
[2019-01-23 07:09] LABS: Partial Thromboplastin Ratio 2.1
[2019-01-23 07:18] LABS: Creatinine Clr Calc Pharmacy 70.2 ml/min; Est GFR (African American) 81.4; Est GFR (Non-African American) 70.3
[2019-01-23 07:26] LABS: Partial Thromboplastin Time 56.3 Seconds (21.0-31.0)
[2019-01-23] MEDS: INSULIN ASPART 100 UNITS/ML 3 ML PEN SC SCH ×4 (07:45→20:47)
[2019-01-23] MEDS: PANTOprazole 40 MG TAB PO SCH (08:45)
[2019-01-23] MEDS: AMLODIPINE BESYLATE 5 MG TAB PO SCH (08:45)
[2019-01-23] MEDS: predniSONE 20 MG TAB PO SCH (08:45)
[2019-01-23] MEDS: FUROSEMIDE 20 MG in SYRINGE 0 ML IV SCH (08:46)
[2019-01-23] MEDS: THEOPHYLLINE 400 MG EXTENDED REL TAB PO SCH ×2 (08:46→20:49)
[2019-01-23] MEDS: CEFDINIR 300 MG CAP PO SCH ×2 (08:47→20:47)
[2019-01-23] MEDS: TAMSULOSIN HCL 0.4 MG CAP PO SCH (08:47)
[2019-01-23] MEDS: TIOTROPIUM BROMIDE 5 PUFF/90 MCG INH INH SCH (08:47)
[2019-01-23] MEDS: FOLIC ACID 1 MG TAB PO SCH (08:47)
--- NOTE | 2019-01-23 09:12 | XRay Report ---
XR chest 1V portable HISTORY: pleural effusion COMPARISON: Chest 01/21/2019. FINDINGS: No pneumothorax. The heart remains enlarged. Mild interstitial pulmonary edema has improved . The lingular masslike opacity remains unchanged. Small bilateral pleural effusions and bibasilar de nsities are also stable. IMPRESSION: 1. Interval improvement in the mild interstitial pulmonary edema. 2. Small bilateral pleural effusions with bibasilar densities remain unchanged. 3. Lingular masslike opacity is again noted. Electronically signed by: Owen Cedeno M.D. 01/23/2019 9:10 AM
--- NOTE | 2019-01-23 14:11 | Hospitalist Progress Note ---
Date of Service January 23, 2019 Assessment & Plan (1) Acute and chronic respiratory failure: Likely secondary to lung carcinoma with pleural effusion mostly in the right side Remains stable and saturating well with 2 L of nasal cannula oxygen Clinically much better We will transfer him to medical floor Continue PT and OT (2) Malignant pleural effusion: Patient diagnosed with squamous cell carcinoma via bronchoscopy July 2018 Has been noncompliant with follow-up and subsequent events go on as follows: Was seen at [facility] 12/26/2018 with increasing shortness of breath [facility] for large loculated effusion on the left 12/29/2018 patient underwent VATS procedure with partial pleurectomy and placement of chest tube and Pleurx drain POD #5 there is minimal drainage from the Pleurx catheter and MIST procedure was attempted with leakage around the tube so this was abandoned 01/08/2019 patient transferred to [facility] with scheduled follow- up with thoracic surgery 01/24/2019 01/15/2019 patient admitted to [facility] for complications from chest tubes Appreciate pulmonary input and recommendation Likely to have thoracic surgery evaluation for consideration of management of chest tubes and Pleurx catheter Discussed with oncologist We will have outpatient appointment for further evaluation and management of lung cancer Appreciate palliative care input and recommendation Appreciate thoracic surgery input and recommendation; likely to have extraction of the chest tube and Pleurx catheter Status post infusion of chest tube and Pleurx catheter on 01/18 Clinically stable with symptomatic improvement Repeat chest x-ray on sixth did not show any increase in pleural effusion Discussed with thoracic surgery-no need to have Pleurx catheter right now Repeat chest x-ray did not show any increasing pleural effusion and no CHF (3) Pneumonia: Present on admission with worsening SOB S/P chest tube placement CT chest extensive peribronchovascular consolidation most prominently in the lower lobes though also to varying degrees throughout the remaining lobes. Extensive endobronchial debris in the lower lobes, which may represent mucous plugging, aspiration, or infectious debris. Bilateral pleural effusions, loculated on the left with pleural drains in place. Has been on intravenous Zosyn and vancomycin Pulmonology on board Continue oxygen supplement, Neb treatment Video swallow did show minimal aspiration; will follow the recommendation Has been following recommended diet We will continue antibiotics for now Will DC vancomycin and Zosyn Cefdinir 300 mg twice daily has been started to finish a course of 14 days Diastolic CHF Evidence of fluid overload mostly due to anasarca due to profound hypoalbuminemia CXR showed cardiomegaly with evidence of congestive failure. Continue lasix IV BID Monitor I/O -has been diuresing Kidney function remains stable Bradycardia Last admission at [facility] not a candidate for pacemaker insertion given extremely poor prognosis of underlying malignancy with malignant pleural effusion Cardiology on board and agreed that pt not a good candidate for pacemaker due to poor prognosis Theophylline to help with the heart rate Continue monitor in tele No indication for pacemaker placement Will decrease the theophylline dose as per environmental remediation specialist Heart rate remains around 40s Theophylline dose has been decreased to 200 mg 2 times a day Heart rate remains at 40s No acute bradyarrhythmias Paroxysmal Afib Heart rate has been running low Eliquis on hold in case pt will need procedure On heparin drip for now Stable We will continue with his outpatient dose of Eliquis Hypertension Controlled with current medication DVT px on heparin drip for now We will continue heparin drip for now Will be put back on Eliquis on discharge Discussed with the patient And now he is a DNR Prognosis remains poor We will get PT and OT evaluation Likely to need placement at discharge Medically stable to be discharged Will need outpatient oncology follow-up with Dr. Quinonez Subjective 01/17 The patient was seen and examined in telemetry unit He has been complaining of shortness of breath but denies any chest pain and/or palpitation Denies any abdominal pain nausea or vomiting Feels little bit better since admission 01/18 The patient was seen and examined in telemetry He has been feeling a lot better Still complains some pain in the left chest but denies any shortness of breath at rest No fever and/or chills Heart rate remains around 40 01/19 The patient was seen and examined in the telemetry unit He remains generally weak and lethargic Complains some pain at the right lateral chest wall Denies any significant shortness of breath 01/20 Patient was seen and examined in telemetry unit He remains stable following removal of chest tube and Pleurx catheter Minimal pain right lateral chest wall Chest x-ray is not showing any reaccumulation of pleural fluid 01/21 Patient was seen and examined in telemetry unit He has been feeling a lot better but still remains weak and lethargic Denies any significant pain and/or shortness of breath 01/22 Patient was seen and examined in telemetry unit He has been feeling a lot better without any significant shortness of breath and denies any pain Remains reasonably weak and lethargy Start PT and OT evaluation 01/23 The patient was seen and examined in telemetry unit He has been feeling a lot better and the only complaint is generalized weakness Denies any chest pain and/or palpitation No shortness of breath at rest Review of Systems Review of Systems: All systems reviewed and unremarkable except as noted below Constitutional: + fatigue, + weakness, + anorexia and + weight loss Respiratory: no cough and no dyspnea (Minimal at rest) Musculoskeletal: No acute pain in any of the joints Neurologic: + generalized weakness; no confusion Physical Exam Physical Exam: Lying in bed comfortably Constitutional: well developed and + ill appearing; no acute distress Eyes: PERRL, conjunctivae normal, anicteric sclerae ENMT: external ear and nose normal, oropharynx normal Neck: trachea midline, no thyromegaly Respiratory: + dullness to percussion (On right side); no respiratory distress Auscultation: + diminished lung sounds and + crackles (Mostly on the right side); no rhonchi Cardiovascular: Rate/Rhythm: regular rate, regular rhythm and + bradycardic Heart Sounds: no murmur Gastrointestinal (Abdomen): Inspection/Auscultation: abdomen normal to inspection; abdomen not distended Percussion/Palpation: abdomen soft Neurologic: moves all extremities; no focal motor deficits Psychiatric: Orientation: alert Lymphatic: no cervical or axillary lymphadenopathy Results & Data Vital Signs (Past 12 Hours) Vital Signs Temp Pulse Pulse Pulse Resp BP Pulse Ox 01/23/19 10:54 36.4 C L 45 L 26 H 152/74 H 93 01/23/19 07:51 45 L 01/23/19 07:18 36.7 C 45 L 26 H 159/82 H 96 01/23/19 06:45 36.5 C 52 L 19 158/81 H 95 01/23/19 03:04 36.5 C 44 L 19 150/78 H 93 Laboratory Results [facility] 01/23/19 06:24 Creatinine 1.06 Medications Administered Current Inpatient Medications Acetaminophen (Tylenol) 650 mg PO Q4H PRN PRN Reason: Pain or Fever Stop: 02/14/19 23:47 Albuterol (Duoneb) 3 ml NEB Q4R PRN PRN Reason: Shortness Of Breath Or Wheezing Stop: 02/14/19 23:47 Amlodipine Besylate (Norvasc) 10 mg PO QAM [facility] Stop: 02/15/19 08:59 Last Admin: 01/23/19 08:45 Dose: 10 mg Documented by: Cefdinir (Omnicef Cap) 300 mg PO BID [facility]; Protocol Stop: 01/29/19 09:44 Last Admin: 01/23/19 08:47 Dose: 300 mg Documented by: Dextrose (Dextrose 50%) 25 - 50 ml IV UD PRN; Protocol PRN Reason: Hypoglycemia Protocol Stop: 02/15/19 00:14 Dextrose (Dextrose 50%) 25 - 50 ml IV UD PRN; Protocol PRN Reason: Hypoglycemia Protocol Stop: 02/15/19 20:49 Folic Acid (Folvite) 1 mg PO DAILY [facility] Stop: 02/15/19 08:59 Last Admin: 01/23/19 08:47 Dose: 1 mg Documented by: Glucagon (Glucagen) 1 mg IM UD PRN; Protocol PRN Reason: Hypoglycemia Protocol Stop: 02/15/19 00:14 Glucagon (Glucagen) 1 mg SQ UD PRN; Protocol PRN Reason: Hypoglycemia Protocol Stop: 02/15/19 20:49 Glucose (Glucose 40%) 15 - 30 gm PO UD PRN; Protocol PRN Reason: Hypoglycemia Protocol Stop: 02/15/19 00:14 Glucose (Dex4 Glucose) 4 - 8 tabs PO UD PRN; Protocol PRN Reason: Hypoglycemia Protocol Stop: 02/15/19 00:14 Glucose (Glucose 40%) 15 - 30 gm PO UD PRN; Protocol PRN Reason: Hypoglycemia Protocol Stop: 02/15/19 20:49 Glucose (Dex4 Glucose) 4 - 8 tabs PO UD PRN; Protocol PRN Reason: Hypoglycemia Protocol Stop: 02/15/19 20:49 Hydralazine HCl (Apresoline) 25 mg PO TID [facility] Stop: 02/17/19 13:59 Last Admin: 01/23/19 13:13 Dose: 25 mg Documented by: Promethazine HCl 12.5 mg/ (Sodium Chloride) 50.5 mls @ 202 mls/hr IV Q6H PRN PRN Reason: Nausea And Vomiting Stop: 02/14/19 23:47 Heparin Sodium/Dextrose (Heparin Sodium/Dextrose) 25,000 units in 500 mls @ 37 mls/hr IV .[id number] [facility]; Protocol Stop: 02/14/19 23:47 Last Titration: 01/23/19 07:39 Dose: 1,850 units/hr, 37 mls/hr Documented by: Furosemide 20 mg/ Syringe 2 mls @ 4 mls/min IV DAILY [facility] Stop: 02/17/19 11:14 Last Admin: 01/23/19 08:46 Dose: 4 mls/min Documented by: Insulin Aspart (Novolog Flexpen) 0 units SC ACHS RAZ Stop: 02/16/19 07:29 Last Admin: 01/23/19 12:03 Dose: 3 units Documented by: Insulin Glargine (Lantus Solostar Pen) 5 units SQ HS [facility] Stop: 02/15/19 20:59 Last Admin: 01/22/19 20:43 Dose: 5 units Documented by: Miscellaneous (Carbohydrates For Hypoglycemia) 15 - 30 gm PO UD PRN PRN Reason: Hypoglycemia Treatment Stop: 02/15/19 00:14 Miscellaneous (Carbohydrates For Hypoglycemia) 15 - 30 gm PO UD PRN PRN Reason: Hypoglycemia Treatment Stop: 02/15/19 20:49 Morphine Sulfate (Morphine Sulfate) 4 mg IV Q4H PRN PRN Reason: Pain Stop: 01/29/19 23:47 Nitroglycerin (Nitrostat) 0.4 mg SL UD PRN PRN Reason: Chest Pain Stop: 02/14/19 23:47 Oxycodone/Acetaminophen (Percocet 5mg/325mg) 1 tab PO Q4H PRN PRN Reason: Pain Stop: 01/29/19 23:47 Oxycodone/Acetaminophen (Percocet 5mg/325mg) 2 tab PO Q4 PRN PRN Reason: Pain Stop: 01/29/19 23:47 Pantoprazole Sodium (Protonix) 40 mg PO DAILY [facility] Stop: 02/15/19 08:59 Last Admin: 01/23/19 08:45 Dose: 40 mg Documented by: Prednisone (Prednisone) 20 mg PO DAILY [facility] Stop: 02/15/19 08:59 Last Admin: 01/23/19 08:45 Dose: 20 mg Documented by: Tamsulosin HCl (Flomax) 0.4 mg PO DAILY [facility] Stop: 02/15/19 08:59 Last Admin: 01/23/19 08:47 Dose: 0.4 mg Documented by: Theophylline (Theophylline Er) 200 mg PO BID [facility] Stop: 02/19/19 20:59 Last Admin: 01/23/19 08:46 Dose: 200 mg Documented by: Tiotropium Alloy (Spiriva) 1 puffs INH QAM [facility] Stop: 02/16/19 08:59 Last Admin: 01/23/19 08:47 Dose: 1 puffs Documented by:
--- NOTE | 2019-01-23 17:02 | Progress Note ---
DATE: 01/23/2019 Mr. Kohli was seen today. He seems comfortable on 2 liters 97% sat. I checked his x-ray while he does have an abnormality in his left base. He has not really changed much and in fact, he may even look a little better than he did 3 days ago. At this point, I would not intervene in his chest. I would wait until his forces our hand. At this point, I feel from a pulmonary standpoint, he is stable to go back to [facility] when the primary care service agrees.
[2019-01-23] MEDS: INSULIN GLARGINE SOLOSTAR 100 UNITS/ML 3 ML PEN SQ SCH (20:48)
[2019-01-23] MEDS: APIXABAN 5 MG TABLET PO SCH (20:49)
[2019-01-24] MEDS: CEFDINIR 300 MG CAP PO SCH ×2 (08:34→20:42)
[2019-01-24] MEDS: THEOPHYLLINE 400 MG EXTENDED REL TAB PO SCH ×2 (08:34→20:41)
[2019-01-24] MEDS: APIXABAN 5 MG TABLET PO SCH ×2 (08:34→20:39)
[2019-01-24] MEDS: AMLODIPINE BESYLATE 5 MG TAB PO SCH (08:35)
[2019-01-24] MEDS: predniSONE 20 MG TAB PO SCH (08:35)
[2019-01-24] MEDS: FOLIC ACID 1 MG TAB PO SCH (08:35)
[2019-01-24] MEDS: PANTOprazole 40 MG TAB PO SCH (08:35)
[2019-01-24] MEDS: FUROSEMIDE 20 MG TAB PO SCH (08:35)
[2019-01-24] MEDS: TAMSULOSIN HCL 0.4 MG CAP PO SCH (08:36)
[2019-01-24] MEDS: TIOTROPIUM BROMIDE 5 PUFF/90 MCG INH INH SCH (08:36)
[2019-01-24] MEDS: INSULIN ASPART 100 UNITS/ML 3 ML PEN SC SCH ×4 (08:40→20:39)
--- NOTE | 2019-01-24 19:07 | Hospitalist Progress Note ---
Date of Service January 24, 2019 Assessment & Plan (1) Acute and chronic respiratory failure: Likely secondary to lung carcinoma with pleural effusion mostly in the right side Remains stable and saturating well with 2 L of nasal cannula oxygen Clinically much better Continue PT and OT will discharge on oxygen supplement to rehab 2 step exercise can be done once stable to discharge from rehab (2) Malignant pleural effusion: Lung CA Patient diagnosed with squamous cell carcinoma via bronchoscopy July 2018 Has been noncompliant with follow-up and subsequent events go on as follows: Was seen at [facility] 12/26/2018 with increasing shortness of breath Transferred to [facility] for thoracentesis for large loculated effusion on the left 12/29/2018 patient underwent VATS procedure with partial pleurectomy and placement of chest tube and Pleurx drain POD #5 there is minimal drainage from the Pleurx catheter and MIST procedure was attempted with leakage around the tube so this was abandoned 01/08/2019 patient transferred to [facility] with scheduled follow- up with thoracic surgery 01/24/2019 01/15/2019 patient admitted to [facility] for complications from chest tubes Appreciate pulmonary input and recommendation Likely to have thoracic surgery evaluation for consideration of management of chest tubes and Pleurx catheter Discussed with oncologist We will have outpatient appointment for further evaluation and management of lung cancer Appreciate palliative care input and recommendation Appreciate thoracic surgery input and recommendation; likely to have extraction of the chest tube and Pleurx catheter Status post infusion of chest tube and Pleurx catheter on 01/18 Clinically stable with symptomatic improvement Repeat chest x-ray on sixth did not show any increase in pleural effusion Discussed with thoracic surgery-no need to have Pleurx catheter right now Repeat chest x-ray did not show any increasing pleural effusion and no CHF Continue oxygen supplement Will need to arrange for outpatient follow up with Oncology in 1 to 2 weeks (3) Pneumonia: Present on admission with worsening SOB S/P chest tube placement CT chest extensive peribronchovascular consolidation most prominently in the lower lobes though also to varying degrees throughout the remaining lobes. Extensive endobronchial debris in the lower lobes, which may represent mucous p lugging, aspiration, or infectious debris. Bilateral pleural effusions, loculated on the left with pleural drains in place. Has been on intravenous Zosyn and vancomycin Pulmonology on board Continue oxygen supplement, Neb treatment Video swallow did show minimal aspiration; will follow the recommendation Has been following recommended diet We will continue antibiotics for now Will DC vancomycin and Zosyn Continue Cefdinir 300 mg twice daily to complete a course of 14 days Diastolic CHF Evidence of fluid overload mostly due to anasarca due to profound hypoalbuminemia CXR showed cardiomegaly with evidence of congestive failure. Continue lasix 20mg daily stable Bradycardia Last admission at [facility] not a candidate for pacemaker insertion given extremely poor prognosis of underlying malignancy with malignant pleural effusion Cardiology on board and agreed that pt not a good candidate for pacemaker due to poor prognosis Theophylline to help with the heart rate Theophylline dose has been decreased to 200 mg 2 times a day Heart rate remains at 40s No acute bradyarrhythmias Paroxysmal Afib Heart rate has been running low Continue Eliquis 5mg BID Stable Hypertension Controlled with current medication DVT px on Eliquis CODE STATUS DNR Disposition Poor Prognosis Waiting for placement to discharge Will need outpatient oncology follow-up with Dr. Quinonez Subjective Pt was seen and examined Sitting in chair with no distress Pt said that his breathing worst with minimal exertion He desaturated this morning while going to use the bathroom Denies any chest pain, palpitation, dizziness and SOB Physical Exam Physical Exam: General- No acute distress Head- atraumatic Eyes- PERRL, EOMI, ENT- oropharynx clear Neck- supple, no JVD Lungs- +diminished BS Heart- +bradycardia; no murmur Abdomen- normal bowel sounds, soft, nontender Extremities- no calf tenderness Neuro- alert, oriented x 3; PERRL, EOMI; no facial palsy; no dysarthria Skin- warm & dry Results & Data Vital Signs (Past 12 Hours) Vital Signs Temp Pulse Pulse Resp BP Pulse Ox 01/24/19 15:24 36.6 C 47 L 20 154/66 H 91 01/24/19 11:16 87 L 01/24/19 07:10 36.6 C 45 L 18 143/70 H 90
[2019-01-24] MEDS: INSULIN GLARGINE SOLOSTAR 100 UNITS/ML 3 ML PEN SQ SCH (20:42)
[2019-01-25] MEDS: CEFDINIR 300 MG CAP PO SCH (08:52)
[2019-01-25] MEDS: TAMSULOSIN HCL 0.4 MG CAP PO SCH (08:53)
[2019-01-25] MEDS: THEOPHYLLINE 400 MG EXTENDED REL TAB PO SCH (08:53)
[2019-01-25] MEDS: FOLIC ACID 1 MG TAB PO SCH (08:54)
[2019-01-25] MEDS: predniSONE 20 MG TAB PO SCH (08:54)
[2019-01-25] MEDS: FUROSEMIDE 20 MG TAB PO SCH (08:54)
[2019-01-25] MEDS: PANTOprazole 40 MG TAB PO SCH (08:54)
[2019-01-25] MEDS: APIXABAN 5 MG TABLET PO SCH (08:55)
[2019-01-25] MEDS: AMLODIPINE BESYLATE 5 MG TAB PO SCH (08:55)
[2019-01-25] MEDS: TIOTROPIUM BROMIDE 5 PUFF/90 MCG INH INH SCH (08:56)
[2019-01-25] MEDS: INSULIN ASPART 100 UNITS/ML 3 ML PEN SC SCH ×2 (08:57→12:41)
--- NOTE | 2019-01-25 12:48 | Hospitalist Progress Note ---
Date of Service January 25, 2019 Assessment & Plan (1) Acute and chronic respiratory failure: Likely secondary to lung carcinoma with pleural effusion mostly in the right side Remains stable and saturating well with 2 L of nasal cannula oxygen Clinically much better Continue PT and OT Continue oxygen supplement on discharge 2 step exercise can be done once stable to discharge from rehab (2) Malignant pleural effusion: Lung CA Patient diagnosed with squamous cell carcinoma via bronchoscopy July 2018 Has been noncompliant with follow-up and subsequent events go on as follows: Was seen at [facility] 12/26/2018 with increasing shortness of breath [facility] for large loculated effusion on the left 12/29/2018 patient underwent VATS procedure with partial pleurectomy and placement of chest tube and Pleurx drain POD #5 there is minimal drainage from the Pleurx catheter and MIST procedure was attempted with leakage around the tube so this was abandoned 01/08/2019 patient transferred to [facility] with scheduled follow- up with thoracic surgery 01/24/2019 01/15/2019 patient admitted to [facility] for complications from chest tubes Appreciate pulmonary input and recommendation Likely to have thoracic surgery evaluation for consideration of management of chest tubes and Pleurx catheter Discussed with oncologist We will have outpatient appointment for further evaluation and management of lung cancer Appreciate palliative care input and recommendation Appreciate thoracic surgery input and recommendation; likely to have extraction of the chest tube and Pleurx catheter Status post infusion of chest tube and Pleurx catheter on 01/18 Clinically stable with symptomatic improvement Repeat chest x-ray on sixth did not show any increase in pleural effusion Discussed with thoracic surgery-no need to have Pleurx catheter right now Repeat chest x-ray did not show any increasing pleural effusion and no CHF Continue oxygen supplement Will need to arrange for outpatient follow up with Oncology in 1 to 2 weeks (3) Pneumonia: Present on admission with worsening SOB S/P chest tube placement CT chest extensive peribronchovascular consolidation most prominently in the lower lobes though also to varying degrees throughout the remaining lobes. Extensive endobronchial debris in the lower lobes, which may represent mucous plugging, aspiration, or infectious debris. Bilateral pleural effusions, loculated on the left with pleural drains in place. Has been on intravenous Zosyn and vancomycin Pulmonology on board Continue oxygen supplement, Neb treatment Video swallow did show minimal aspiration; will follow the recommendation Has been following recommended diet We will continue antibiotics for now Will DC vancomycin and Zosyn Continue Cefdinir 300 mg twice daily to complete a course of 14 days Diastolic CHF Evidence of fluid overload mostly due to anasarca due to profound hypoalbuminemia CXR showed cardiomegaly with evidence of congestive failure. Continue lasix 20mg daily stable Bradycardia Last admission at [facility] not a candidate for pacemaker insertion given extremely poor prognosis of underlying malignancy with malignant pleural effusion Cardiology on board and agreed that pt not a good candidate for pacemaker due to poor prognosis Theophylline to help with the heart rate Theophylline dose has been decreased to 200 mg 2 times a day Heart rate remains at 40s No acute bradyarrhythmias Paroxysmal Afib Heart rate has been running low Continue Eliquis 5mg BID Stable Hypertension Controlled with current medication DVT px on Eliquis CODE STATUS DNR Disposition Poor Prognosis Will discharge home today Will need outpatient oncology follow-up with Dr. Quinonez Subjective Pt was seen and examined Sitting in chair with no distress eating lunch Pt said that he feels much better today He said that he walked 2 laps today in the hallway He said that that oxygen supplement helps Denies any chest pain, palpitation, dizziness and fever Physical Exam Physical Exam: General- No acute distress Head- atraumatic Eyes- PERRL, EOMI, ENT- oropharynx clear Neck- supple, no JVD Lungs- +diminished BS Heart- +bradycardia; no murmur Abdomen- normal bowel sounds, soft, nontender Extremities- no calf tenderness Neuro- alert, oriented x 3; PERRL, EOMI; no facial palsy; no dysarthria Skin- warm & dr Results & Data Vital Signs (Past 12 Hours) Vital Signs Temp Pulse Pulse Pulse Resp BP BP 01/25/19 12:27 36.4 C L 48 L 49 L 45 L 16 122/61 01/25/19 09:04 49 L 122/61 01/25/19 07:17 36.4 C L 44 L 16 170/84 H Pulse Ox 01/25/19 12:27 96 01/25/19 09:04 01/25/19 07:17 96
--- NOTE | 2019-01-26 08:34 | Discharge Summary ---
Date of Service January 25, 2019 Admission HPI Per Admitting Provider History obtained from patient and records. Medical history significant for chronic systolic heart failure (EF unknown as per records), chronic respiratory secondary to COPD/malignant pleural effusion currently on home O2, chronic bradycardia/PAF on Eliquis, hypertension, past tobacco abuse, chronic right hydronephrosis/BPH indwelling Johnson catheter, chronic anemia baseline hemoglobin (10-11). Patient admitted at [facility] last July 2018 for increased shortness of breath. Patient found to have a left lung mass with left pleural effusion. Pleural effusion later found out to be malignant (SCLC as per [facility] Records, squamous cell carcinoma as per [facility] records). Patient also noted to have episodic bradycardia during confinement. Patient did not follow up with [facility] oncologist outpatient as patient was not initially interested in treatment. as per records. Patient seen at [facility] last month for uncontrolled blood pressure, CHF. CT showed interval increase in the left upper lobe hilar mass with likely mediastinal invasion. Interval increase in large left pleural effusion with associated compressive atelectasis of left lower lobe lung. No pulmonary artery embolism. [facility] from December 25-2018. Patient underwent CTT and Pleurx catheter placement for left pleural effusion. As per patient, he was told by [facility] forestry professor that he was not a candidate for pacemaker given his cancer. Losartan stopped for hyperkalemia. Patient subsequently discharged to [facility] for rehab with instructions to follow-up with [facility] specialists outpatient within 1 week of discharge. Patient discharged on Prednisone 20 mg daily (indefinite duration) for COPD exacerbation by pillowcase cleaner. Patient had expressed interest in pursuing chemotherapy as per records. Patient seen at [facility] ER 5 days ago for chest tube complications. Chest x-ray showed left basilar chest tube. Cardiomegaly with mild congestive change. Bibasilar densities/effusions left greater than the right. Pleur evac container was noted to be overflowing because [facility] staff would not change it as per patient. Pleur-evac was changed at the ER. Last few days patient noted worsening cough symptoms productive of junky sputum, coughing with meals/water if he is not careful. Increasing shortness of breath, no chest pain. No fever, no chills. At the ER, patient received IV Vanco and Zosyn for pneumonia. 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, estranged from and children Admission Exam Per Admitting Provider GENERAL: uncomfortable, minimal respiratory distress, has to catch his breath during speech SKIN: Pallor, warm HEENT: Pale palpebral conjunctivae, no ptosis, dry buccal mucosa, nasal cannula in place NECK : Supple, no tenderness CHEST : Decreased breath sounds, expiratory wheezes, dressing over left chest wall HEART : Bradycardic, diminished S1-S2 ABDOMEN: Some distention, nontender EXTREMITIES : Bilateral LE swelling, no LE tenderness, no other conspicuous deformities noted NEUROLOGIC : Coherent, no facial asymmetry, no other gross focality Principal Diagnosis GENERAL: uncomfortable, minimal respiratory distress, has to catch his breath during speech SKIN: Pallor, warm HEENT: Pale palpebral conjunctivae, no ptosis, dry buccal mucosa, nasal cannula in place NECK : Supple, no tenderness CHEST : Decreased breath sounds, expiratory wheezes, dressing over left chest wall HEART : Bradycardic, diminished S1-S2 ABDOMEN: Some distention, nontender EXTREMITIES : Bilateral LE swelling, no LE tenderness, no other conspicuous deformities noted NEUROLOGIC : Coherent, no facial asymmetry, no other gross focality Discharge Exam General- No acute distress Head- atraumatic Eyes- PERRL, EOMI, ENT- oropharynx clear Neck- supple, no JVD Lungs- +diminished BS Heart- +bradycardia; no murmur Abdomen- normal bowel sounds, soft, nontender Extremities- no calf tenderness Neuro- alert, oriented x 3; PERRL, EOMI; no facial palsy; no dysarthria Skin- warm & dr Discharge Data Allergies Allergy/AdvReac Type Severity Reaction Status Date / Time hepatitis B immune globulin AdvReac Unknown Unverified 01/15/19 18:24 losartan AdvReac hyperkalemi Verified 01/16/19 05:06 a Consultations 01/15/19 19:30 ED Decision to Admit Stat 01/15/19 23:48 Consult Cardiology Routine Consult Case Management - Discharge Planning Routine Consult Health Information Management Routine Consult Pulmonology Routine 01/16/19 09:44 Consult Palliative Care Routine 01/16/19 14:37 Consult Patient Services Routine 01/17/19 16:56 Consult Thoracic Surgery Routine Ordered Studies 01/15/19 17:40 CT chest wo con Stat 01/16/19 10:30 FL video swallow Routine XR chest 1V portable HISTORY: pleural effusion COMPARISON: Chest 01/21/2019. FINDINGS: No pneumothorax. The heart remains enlarged. Mild interstitial pulmonary edema has improved. The lingular masslike opacity remains unchanged. Small bilateral pleural effusions and bibasilar densities are also stable. IMPRESSION: 1. Interval improvement in the mild interstitial pulmonary edema. 2. Small bilateral pleural effusions with bibasilar densities remain unchanged. 3. Lingular masslike opacity is again noted. Electronically signed by: Owen Cedeno M.D. 01/23/2019 9:10 AM Dictated: 01/23/19908 Transcribed: 01/23/19908 XR chest 1V portable HISTORY: f/u effusion COMPARISON: Chest 01/20/2019. FINDINGS: The heart remains enlarged. Bilateral pleural effusions and bibasilar densities persist. Mild interstitial pulmonary edema remains unchanged. Lingular masslike opacity is also unchanged. IMPRESSION: 1. Cardiomegaly and small bilateral pleural effusions, unchanged. 2. Linear masslike opacity, possibly neoplastic is again noted. 3. Bibasilar airspace opacities persist. Electronically signed by: Owen Cedeno M.D. 01/21/2019 7:30 AM Dictated: 01/21/19727 Transcribed: 01/21/19727 XR chest 2V routine CLINICAL HISTORY: Recurrent left pleural effusion COMPARISON STUDY: 01/19/2019 FINDINGS: The heart remains enlarged. There is a persistent masslike opacity within the lingula. There are bilateral pleural effusions. There is left lower lobe consolidation.[Mild pulmonary vascular congestion is suspected IMPRESSION: 1. Cardiomegaly and small bilateral pleural effusions 2. Left lower lobe consolidation 3. Lingular masslike opacity, possibly neoplastic. Electronically signed by: Aravind See M.D. 01/20/2019 9:38 AM Dictated: 01/20/19934 Transcribed: 01/20/19934 TWO VIEW CHEST CLINICAL HISTORY: Recurrent left pleural disease. FINDINGS: PA and lateral chest radiographs are compared to study dated 01/17/2019 and correlated with chest CT dated 01/15/2019. The heart is enlarged noting atherosclerotic calcification with uncoiling of the thoracic aorta. There is mild pulmonary vascular congestion. Left-sided chest tubes have been removed. There are small pleural effusions with bibasilar consolidation. There is masslike consolidation identified in the lingula along the left heart border. No pneumothorax is seen. The skeletal structures are osteopenic. The bony thorax appears intact. Degenerative change is noted in the thoracic spine. Enteric contrast is noted in the left colon. IMPRESSION: 1. Left-sided chest tubes have been removed. 2. Small pleural effusions with bibasilar consolidation. 3. There is masslike consolidation within the lingula. When correlated with the 01/15/2019 examination this is highly concerning for a large neoplasm/mass. 4. Cardiomegaly with mild pulmonary vascular congestion. Findings were discussed with Mike Anderson the patient has a known history of squamous cell lung cancer. Electronically signed by: Mike Chavarria M.D. 01/19/2019 8:42 AM Dictated: 01/19/19815 Transcribed: 01/19/19823 XR chest 2V routine CLINICAL HISTORY: 73 years-old Male presenting with B/L pleural effusions; L chest tubes. TECHNIQUE: PA and lateral views of the chest were obtained. COMPARISON: 01/15/2019. FINDINGS: Two left pleural drains remain in position at the paramediastinal left midlung. Atherosclerosis of the aortic arch. Cardiac silhouette moderately enlarged. Pulmonary vascular prominence. Bilateral pleural effusions as on prior exam, which may be loculated on the left in moderate in size, only small on the right. Basilar predominant opacities are stable in the left and slightly decreased on the right. No pneumothorax. Osseous structures normal. Upper abdomen normal. IMPRESSION: 1. Slightly decreased right basilar infiltrates with persistent bilateral pleural effusions, moderate loculated on the left. 2. Cardiomegaly with megaly with slightly decreased volume overload. Electronically signed by: Zaheer Keys M.D. 01/17/2019 9:38 AM Dictated: 01/17/19923 Transcribed: 01/17/19924 FL video swallow HISTORY: Pneumonia. assess for aspiration TECHNIQUE: Video fluoroscopic evaluation of swallowing was performed in the AP and lateral projections by the speech pathology staff. The patient is fed nectar-thick and thin liquid barium, a barium coated wafer, and barium pudding. FLUOROSCOPY TIME: 2.9 minutes. A cine loop submitted. COMPARISON STUDY: None. FINDINGS: Small amount of aspiration was demonstrated during the serial swallows of the thin liquid barium. This resulted in a cough. No aspiration identified with the nectar thick liquid barium, barium pudding, or barium coated cracker. Mild to moderate vallecular residue with the thicker barium consistencies. IMPRESSION: 1. Small amount of aspiration demonstrated during the serial swallows of the thin liquid barium. 2. Please see the speech pathologist report for detailed findings and recommendations. Electronically signed by: Owen Cedeno M.D. 01/16/2019 12:03 PM Dictated: 01/16/19 1200 Transcribed: 01/16/19 1200 ADDENDUM Additional history was provided today that the patient has a known underlying s quamous cell carcinoma of the left lung. This history was withheld or not made available to the emergency room at the time of imaging and initial interpretation. The impression of multifocal pneumonia remains, however, the focal solid consolidation of the lingula is compatible with the known malignancy. With this additional history, is apparent that there is soft tissue involvement of the left aspect of the pericardium (series 4 image 185). The dominant mass within the lingula is heterogeneous in density and may be partially necrotic, a finding that would be best demonstrated with intravenous contrast. The chronic indwelling pleural drains in the setting of the loculated pleural effusion further evidence the chronicity of the known underlying malignancy. Pleural involvement of malignancy is suspected. Electronically signed by: Zaheer Keys M.D. 01/19/2019 9:[address] chest wo con CLINICAL HISTORY: 73 years-old Male presenting with left apical pneumothorax. TECHNIQUE: Multidetector CT imaging of the chest was performed without the use of intravenous contrast. IV contrast: None. One or more dose lowering techniques were used consistent with the principles of ALARA (as low as reasonably achievable), including automatic exposure control, mA or kV adjustment to individual patient size, and/or use of iterative reconstruction. COMPARISON: Chest x-ray performed earlier today. CT DOSE (mGy.cm): The estimated cumulative dose is 598.63 mGycm. FINDINGS: Soil Checker topogram: Cardiomegaly. Soft tissues: Multiple thyroid nodules. Diffuse body wall edema. Numerous prominent mediastinal lymph nodes in prevascular and paratracheal regions. Some are calcified. Atherosclerosis of the aorta. Multichamber enlargement of the heart. Coronary artery, aortic valve, and mitral annular calcification. Small pericardial effusion. Moderate simple appearing right pleural effusion. Small to moderate loculated left pleural effusion with a pleural drain positioned in the paramediastinal lower lung region. A second pleural drain is positioned in the paramediastinal posterior mid region. Prominent right upper pole cyst suspected. Diffuse mesenteric edema and trace ascites. Lungs and airways: No pneumothorax. Multifocal occluded lobar, segmental, and subsegmental airways in the lower lobes. Prominent peribronchovascular consolidation in the lower lobes. Patchy peribronchovascular consolidation in the remainder of the lobes. Pulmonary arteries are not significantly enlarged relative to adjacent bronchi. No interlobular septal thickening. Musculoskeletal: Degenerative changes of the spine. IMPRESSION: 1. Extensive peribronchovascular consolidation most prominently in the lower lobes though also to varying degrees throughout the remaining lobes. This is worrisome for multifocal pneumonia or multifocal cryptogenic organizing pneumonia. 2. Extensive endobronchial debris in the lower lobes, which may represent mucous plugging, aspiration, or infectious debris. 3. Bilateral pleural effusions, loculated on the left with pleural drains in place. 4. No pneumothorax. 5. Volume overload with anasarca. No angel pulmonary edema. 6. Cardiomegaly. Electronically signed by: Zaheer Keys M.D. 01/15/2019 7:16 PM Dictated: 01/15/191909 Transcribed: 01/15/191909 SINGLE VIEW CHEST CLINICAL HISTORY: Pleural effusions. FINDINGS: An AP, portable, upright chest radiograph is compared to study dated 01/10/2019. The examination is degraded by portable technique and patient rotation. The heart is markedly enlarged noting atherosclerotic calcification of the thoracic aorta. There is pulmonary vascular congestion. A left basilar chest tube is in place. There are left larger than right pleural effusions with associated consolidation. Question a small left apical pneumothorax versus skinfold. The skeletal structures are osteopenic. The bony thorax is grossly intact. IMPRESSION: 1. Cardiomegaly with evidence of congestive failure. 2. There are bilateral pleural effusions with associated consolidation, similar in appearance to 01/10/2019. 3. Question a small left apical pneumothorax versus skinfold. Correlation with a PA and lateral examination is recommended. Electronically signed by: Mike Chavarria M.D. 01/15/2019 5:22 PM Dictated: 01/15/191717 Transcribed: 01/15/191717 Hospital Course (1) Acute and chronic respiratory failure: Likely secondary to lung carcinoma with pleural effusion mostly in the right side Remains stable and saturating well with 2 L of nasal cannula oxygen Clinically much better Continue PT and OT Continue oxygen supplement on discharge 2 step exercise can be done once stable to discharge from rehab (2) Malignant pleural effusion: Lung CA Patient diagnosed with squamous cell carcinoma via bronchoscopy July 2018 Has been noncompliant with follow-up and subsequent events go on as follows: Was seen at [facility] 12/26/2018 with increasing shortness of breath [facility]acentesis for large loculated effusion on the left 12/29/2018 patient underwent VATS procedure with partial pleurectomy and placement of chest tube and Pleurx drain POD #5 there is minimal drainage from the Pleurx catheter and MIST procedure was attempted with leakage around the tube so this was abandoned 01/08/2019 patient transferred to [facility] with scheduled follow- up with thoracic surgery 01/24/2019 01/15/2019 patient admitted to [facility] for complications from chest tubes Appreciate pulmonary input and recommendation Likely to have thoracic surgery evaluation for consideration of management of chest tubes and Pleurx catheter Discussed with oncologist We will have outpatient appointment for further evaluation and management of lung cancer Appreciate palliative care input and recommendation Appreciate thoracic surgery input and recommendation; likely to have extraction of the chest tube and Pleurx catheter Status post infusion of chest tube and Pleurx catheter on 01/18 Clinically stable with symptomatic improvement Repeat chest x-ray on sixth did not show any increase in pleural effusion Discussed with thoracic surgery-no need to have Pleurx catheter right now Repeat chest x-ray did not show any increasing pleural effusion and no CHF Continue oxygen supplement Will need to arrange for outpatient follow up with Oncology in 1 to 2 weeks (3) Pneumonia: Present on admission with worsening SOB S/P chest tube placement CT chest extensive peribronchovascular consolidation most prominently in the lower lobes though also to varying degrees throughout the remaining lobes. Extensive endobronchial debris in the lower lobes, which may represent mucous plugging, aspiration, or infectious debris. Bilateral pleural effusions, loculated on the left with pleural drains in place. Has been on intravenous Zosyn and vancomycin Pulmonology on board Continue oxygen supplement, Neb treatment Video swallow did show minimal aspiration; will follow the recommendation Has been following recommended diet We will continue antibiotics for now Will DC vancomycin and Zosyn Continue Cefdinir 300 mg twice daily to complete a course of 14 days Diastolic CHF Evidence of fluid overload mostly due to anasarca due to profound hypoalbuminemia CXR showed cardiomegaly with evidence of congestive failure. Continue lasix 20mg daily stable Bradycardia Last admission at [facility] not a candidate for pacemaker insertion given extremely poor prognosis of underlying malignancy with malignant pleural effusion Cardiology on board and agreed that pt not a good candidate for pacemaker due to poor prognosis Theophylline to help with the heart rate Theophylline dose has been decreased to 200 mg 2 times a day Heart rate remains at 40s No acute bradyarrhythmias Paroxysmal Afib Heart rate has been running low Continue Eliquis 5mg BID Stable Hypertension Controlled with current medication DVT px on Eliquis CODE STATUS DNR Disposition Poor Prognosis Will discharge home today Will need outpatient oncology follow-up with Dr. Quinonez Total Time Total Time Spent Total Time Spent (In Minutes): 35 minutes Total Time Includes: Examination of the Patient, Discharge Planning, Medication Reconciliation, Communication With Other Providers and Other Discharge Plan Discharge Items Patient Disposition: Transfer [facility] Living [facility] Reason For Visit: RESP FAILURE Discharge Diagnosis: Acute and chronic respiratory failure Malignant pleural effusion Lung CA (squamous cell carcinoma) Pneumonia Diastolic CHF Paroxysmal Afib Bradycardia Hypertension Activity: Resume your previous activity Activity Comment: As tolerated Non-emergency contact: Primary Care Provider and Oncologist Call non-emergency contact if: you have any medication questions Follow-up/Referrals: Reagan Rawls [Primary Care Provider] - Diet: Carb Consistent or DM2 Diet Comment: see below Addtl Attending Provider Instructions: Follow up with your primary care provider at [facility] Follow up with Oncology Dr. Quinonez in 1 to 2 weeks Continue physical and occupational therapy Follow up up with pulmonology and thoracic surgery Dr. Scherer Continue oxygen supplement 2L at rest and 3L with activity Aspiration precaution ( Minced and moist diet, small single sips from cup) Fall precaution Ok to discharge with Johnson cath Check Theophylline level in 1 week 2 step exercise when stable to discharge from [facility] Complete course of antibiotic Continue monitor your blood pressure Pending Studies at Discharge: No Stand-Alone Forms: My [facility] Skilled Items Patient informed of condition?: Yes DNR: Yes Discharge Level of Care: Skilled Communicable Disease: No Discharge Prognosis: Stable Lines: None Urinary Catheter: Yes Medications and DC Order Prescriptions: New theophylline 400 mg Tablet Extended Release 24 Hr 200 mg PO BID 30 Days Qty: 30 RF: 0 hydralazine 25 mg Tablet 25 mg PO TID 30 Days Qty: 90 RF: 0 furosemide 20 mg Tablet 20 mg PO QAM 30 Days Qty: 30 RF: 0 cefdinir 300 mg Capsule 300 mg PO BID 5 Days Qty: 10 RF: 0 Spiriva with HandiHaler 18 mcg Capsule, W/Inhalation Device 1 puff inhalation QAM 30 Days Qty: 30 RF: 0 amlodipine 10 mg tablet 10 mg PO DAILY Qty: 30 RF: 0 Continued acetaminophen 325 mg Tablet 650 mg PO Q6H MDD 3G PRN (Reason: fever) RF: 0 acetaminophen 325 mg Tablet 650 mg PO Q6H MDD 3G PRN (Reason: Pain) RF: 0 ipratropium-albuterol 0.5 mg-3 mg(2.5 mg base)/3 mL Solution For Nebulization 3 ml INHALATION Q4H PRN (Reason: Wheezing) RF: 0 prednisone 20 mg Tablet 20 mg PO DAILY RF: 0 pseudoephedrine-guaifenesin [Mucinex D] 60-600 mg Tablet Extended Release 12 Hr 1 tab PO Q12H PRN (Reason: Congestion) RF: 0 oxycodone-acetaminophen [Percocet] 5-325 mg Tablet 1 tab PO Q4H PRN (Reason: Pain) RF: 0 magnesium hydroxide [Milk of Magnesia] 400 mg/5 mL Suspension 30 ml PO HS PRN (Reason: Constipation) RF: 0 cyanocobalamin (vitamin B-12) 500 mcg Tablet 1,000 mcg PO DAILY RF: 0 tamsulosin 0.4 mg Capsule 0.4 mg PO DAILY RF: 0 bisacodyl 10 mg Suppository 10 mg NM DAILY PRN (Reason: Constipation) RF: 0 pantoprazole [Protonix] 40 mg Tablet,Delayed Release (Dr/Ec) 40 mg PO DAILY RF: 0 folic acid 1 mg Tablet 1 mg PO DAILY RF: 0 Eliquis 5 mg Tablet 5 mg PO DAILY RF: 0 Discontinued hydralazine 10 mg Tablet 10 mg PO BID RF: 0 amlodipine 5 mg Tablet 5 mg PO DAILY RF: 0 oxycodone-acetaminophen [Percocet] 5-325 mg Tablet 2 tab PO Q4 PRN (Reason: Pain) RF: 0 Discharge Orders: Discharge Order (Routine); Ordered 01/25/19 Ordered By: Lasha Duque Admission Data Admit Date/Time: 01/15/19 21:12 Attending Provider: Lasha Duque Admit Provider: Gene Dominguez Primary Care Provider: Reagan Rawls Other Providers: Curly, ; Lasha Duque ; Gene Dominguez ; Srinath Zabala ; Gene Weller ; Gene Webber ; Selin Patrick Other Interventions: Discharge Summary Assessment (RN) Last Done: 01/25/19 12:27 DC Date/Time DO NOT enter until pt leaves facility: 01/25/19 14:10
== END 2019-01-25 14:10 | DRG 180 ==
LOC: ED 16:50 → 2S 21:12 → SUATTDRO 21:12 → 2S 22:49 → 4W 01-23 17:24

== ENCOUNTER 2019-02-08 13:01 | Inpatient (IN) ==
--- NOTE | 2019-02-08 13:42 | XRay Report ---
XR chest 1V portable CLINICAL HISTORY: R/o collapsed lung again, Left sided dyspnea COMPARISON STUDY: 01/23/2019 FINDINGS: There complete opacification left hemithorax. Slightly progressive parenchymal and/or pleur al reactive change right base. Right mid and upper lung are clear. IMPRESSION: 1. Near complete opacification left hemithorax. 2. Mildly progressive increase in density right base. The above report was generated using voice recognition software. It may contain grammatical, syntax or spelling errors. Electronically signed by: Khoa Pham M.D. 02/08/2019 1:40 PM
[2019-02-08 14:17] LABS: Basophils # (auto) 0.01 K/uL (0-0.2); Basophils % (auto) 0.1 %; Eosinophils # (auto) 0.03 K/uL (0-0.5); Eosinophils % (auto) 0.3 %; Hematocrit (blood only) 36.8 % (42-52); Hemoglobin 11.5 g/dL (14.0-18.0); Immature Granulocytes # (auto) 0.05 K/uL (0.00-0.02); Immature Granulocytes % (auto) 0.4 %; Lymphocytes # (auto) 0.72 K/uL (1.2-3.4); Lymphocytes % (auto) 6.1 %; Mean Corpuscular Hgb Conc 31.3 g/dL (32-36); Mean Corpuscular Volume 83.3 fL (80-100); Mean Platelet Volume 8.5 fL (7.4-10.4); Monocytes # (auto) 0.55 K/uL (0.11-0.59); Monocytes % (auto) 4.6 %; Neutrophils # (auto) 10.53 K/uL (1.4-6.5); Neutrophils % (auto) 88.5 %; Platelet Count 186 K/uL (130-400); RDW Coefficient of Variation 19.9 % (11.5-14.5); Red Blood Count 4.42 M/uL (4.7-6.1); White Blood Count 11.89 K/uL (4.8-10.8)
[2019-02-08 14:27] LABS: INR 1.1 (0.9-1.1); Partial Thromboplastin Ratio 1.1; Partial Thromboplastin Time 28.8 Seconds (21.0-31.0); Prothrombin Time 11.6 Seconds (9.0-12.0)
[2019-02-08 14:33] LABS: iSTAT Creatinine 1.1 mg/dl (0.6-1.3); iSTAT Hemoglobin 12.6 g/dl (14.0-18.0); iSTAT Ionized Calcium 1.17 mmol/l (1.12-1.32); iSTAT Potassium 3.9 mEq/L (3.3-5.0)
[2019-02-08 14:34] LABS: Albumin Level 2.4 gm/dl (3.4-5.0); Creatinine Clr Calc Pharmacy 63.7 ml/min; Est GFR (African American) 73.3; Est GFR (Non-African American) 63.2; Magnesium 1.9 mg/dl (1.8-2.4); Potassium 3.9 mmol/L (3.5-5.1)
[2019-02-08 14:39] LABS: Albumin Globulin Ratio 0.6 (0.9-2); Bilirubin,Total 0.5 mg/dl (0.2-1); Globulin 3.9 gm/dl (2.5-4.0); Total Protein 6.3 gm/dl (6.4-8.2); Troponin I 0.015 ng/ml (0-0.045)
[2019-02-08] MEDS ORDERED: CEFEPIME 2,000 MG/20 ML VIAL IV STA (14:41)
[2019-02-08] MEDS ORDERED: VANCOMYCIN HCL 1,750 MG in SODIUM CHLORIDE 0.9% 500 ML IV ONE (14:41)
[2019-02-08] MEDS ORDERED: VANCOMYCIN CONSULT ACTIVE PRN (14:41)
--- NOTE | 2019-02-08 17:13 | History & Physical Report ---
Date of Service February 08, 2019 Assessment & Plan (1) Chronic respiratory failure with hypoxia: This is a 74yo M from [facility] with a PMH of chronic respiratory failure on 2-3L home O2, left lung squamous cell carcinoma with history of malignant pleural effusion, COPD, chronic combined systolic and diastolic heart failure, chronic bradycardia/paroxysmal A. fib on Eliquis, chronic right hydronephrosis with Jones in place and other medical problems listed below who presents with worsening shortness of breath over the past few days. -Saturating at 96% on 2L NC O2 (at baseline) -Recently admitted from 01/15-01/26 for acute on chronic respiratory failure in setting of malignant pleural effusion with PleurX catheter malfunction and pneumonia -Continue supplemental O2 (2) Malignant pleural effusion: History of left-sided malignant pleural effusion, had PleurX cath and chest tube placed at [facility] in Sept -Tubes were removed by thoracic surgery during recent [facility] admission on 01/15/19 and patient maintained baseline respiratory function -CXR today with near complete opacification left hemithorax -Thoracic surgery consulted for possible palliative intervention (3) PNA (pneumonia): Evidence of mildly progressive increase in density right base. Recently completed 2 weeks of cefdinir -Mild leukocytosis of 11.89, mild lactic acidosis of 2.8 -Has cough but afebrile, no fever or chills. Will continue antibiotic treatment for now but clinical picture more consistent with CHF (4) 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): Recent volume overload requiring 40mg IV Lasix BID due to combined systolic and diastolic HF, hypoalbuminemia -Appears clinically to be volume overloaded again today -Given 40mg IV Lasix x 1. Re-evaluate volume status in AM (5) Squamous cell carcinoma of left lung: Diagnosed in July 2018 with squamous cell carcinoma as per [facility] records -Seen by heme onc earlier this week and instructed was told he is not a candidate for systemic treatment like chemotherapy. Comfort care felt to be appropriate -Seen by palliative last admission-- decided on DNR -Consider rad onc for palliative XRT ? (6) Hydronephrosis, right: Chronic indwelling jones catheter present with appropriate output (7) HTN (hypertension): Mildly elevated at 145/77 -Continue amlodipine, hydralazine (which was increased during previous admission) -Monitor (8) Paroxysmal A-fib: Currently bradycardic in high 40s-low 50s -Continue Eliquis (9) Bradycardia: Seen by cardiology service last admission for junctional bradycardia. [place] to be a poor candidate for pacemaker insertion given extremely poor prognosis of underlying malignancy -Continue Theophylline to help with the heart rate -Monitor on telemetry DVT Ppx: Eliquis Code status: DNR per discussion with patient. Of note, did update POLST form to reflect patient's current wishes and it was placed on chart. PCP: [facility] Dispo: Admitted to [facility]. Discharge planning ordered. Patient seen in collaboration with Dr. Regan. Please see addendum. History of Present Illness Chief Complaint: shortness of breath Primary Care Provider: [facility] This is a 74yo M from [facility] with a PMH of chronic respiratory failure on 2-3L home O2, left lung squamous cell carcinoma with history of malignant pleural effusion, COPD, chronic combined systolic and diastolic heart failure, chronic bradycardia/paroxysmal A. fib on Eliquis, chronic right hydronephrosis with Jones in place and other medical problems listed below who presents with worsening shortness of breath over the past few days. Patient was recently admitted to our service from 01/15-01/26 for acute on chronic respiratory failure in setting of malignant pleural effusion with PleurX catheter malfunction and pneumonia. CT chest showed extensive peribronchovascular consolidation most prominently in the lower lobes though also to varying degrees throughout the remaining lobes and extensive endobronchial debris in the lower lobes, which may represent mucous plugging, aspiration, or infectious debris. Bilateral pleural effusions, loculated on the left with pleural drains in place. Was treated with IV Lasix BID as well as Zosyn and Vanc. Dr. Webber of thoracic surgery evaluated and felt that catheter was a wick for infection and removed PleurX catheter and regular chest tube on 01/15. Discussed goals of care with palliative and was made a DNR. Wanted to wait until follow up appointment with [facility] onc until making any other care-related decisions. Patient was discharged back to [facility] on a 2 week course of cefdinir. On Feb 05, patient followed up with Dr. Quinonez of [facility] onc who said that patient is not a candidate for systemic treatment such as chemotherapy and felt that comfort care is most appropriate. Patient has been feeling progressively more short of breath the past few days. Providers at [facility] felt patient was more short of breath and had decreased left sided lung sounds so sent to ED for further evaluation. Is saturating at 96% on 2L NC. Endorses intermittent dry cough but denies fever, chills, headache, lightheadedness, sore throat, chest pain, palpitations, abdominal pain, nausea, vomiting, dysuria, constipation or diarrhea. Has jones catheter in place draining dark yellow urine. Allergies Allergy/AdvReac Type Severity Reaction Status Date / Time hepatitis B immune globulin AdvReac Unknown Unverified 02/08/19 14:44 losartan AdvReac hyperkalemi Verified 02/08/19 14:44 a Home Medications Home Medications Medication Instructions Recorded Confirmed Type Eliquis 5 mg PO QAM 01/10/19 02/08/19 History cyanocobalamin (vitamin B-12) 1,000 mcg PO QAM 01/10/19 02/08/19 History acetaminophen 325 mg PO Q6H PRN 02/08/19 02/08/19 History amlodipine 10 mg PO DAILY 02/08/19 02/08/19 History bisacodyl [Dulcolax (bisacodyl)] 10 mg ME DAILY PRN 02/08/19 02/08/19 History folic acid 1 mg PO DAILY 02/08/19 02/08/19 History furosemide [Lasix] 20 mg PO DAILY 02/08/19 02/08/19 History hydralazine 25 mg PO TID 02/08/19 02/08/19 History ipratropium-albuterol 3 ml INHALATION Q4H 02/08/19 02/08/19 History pantoprazole [Protonix] 40 mg PO DAILY 02/08/19 02/08/19 History prednisone 20 mg PO DAILY 02/08/19 02/08/19 History pseudoephedrine-guaifenesin 1 tab PO BID PRN 02/08/19 02/08/19 History tamsulosin 0.4 mg PO DAILY 02/08/19 02/08/19 History theophylline 200 mg PO BID 02/08/19 02/08/19 History umeclidinium [Incruse Ellipta] 1 inh INHALATION DAILY 02/08/19 02/08/19 History Past Med/Surg History Medical History Malignant pleural effusion (Chronic) COPD (chronic obstructive pulmonary disease) (Chronic) Squamous cell carcinoma of left lung (Chronic) 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) (Chronic) Hydronephrosis, right (Chronic) HTN (hypertension) (Chronic) Paroxysmal A-fib (Chronic) Surgical History H/O knee surgery (Chronic) Hx of cholecystectomy (Chronic) Family History Other Cancer Social History Preferred Language: Belarusian Communication Ability: Effective Manager Proposal Required: No Beliefs That Will Affect Care: None marital status: Single Current Living Situation: Assisted Current Living Situation Comment: [facility] current occupational status: retired Other Information That Helps Us Care for You: No Feels Safe at Home: Yes Smoking Status: Former smoker Second Hand Exposure: No ; Hx Alcohol Use: No Hx Substance Use: No Review of Systems Review of Systems: At least ten systems reviewed and negative except as noted in the HPI. Physical Exam Physical Exam: General Appearance: WD/WN, vitals as above, NAD, chronically ill, dyspneic when speaking Head: normocephalic, atraumatic Eyes: normal inspection, PERRL, conjunctivae normal, anicteric sclerae ENT: external ear and nose normal, oropharynx normal Neck: trachea midline, no thyromegaly normal visual inspection Respiratory: diminished breath sounds throughout. Crackles at L base. No wheeze or rhonchi. + increased work of breathing Cardiovascular: bradycardic, regular rhythm, systolic ejection murmur, normal peripheral pulses, 2+ BLE edema. Vessels: + JVD Chest: normal inspection of chest Abdomen/GI: normal bowel sounds, soft, nontender, no hepatosplenomegaly : Jones catheter draining dark yellow urine Extremities/Musculoskelatal: no cyanosis or clubbing, extremities motor strength 5/5 Neurologic: PERRL, EOMI, accommodation nl, no face palsy, no dysarthria CN's II-XI intact bilaterally and moves all extremities Psychiatric: A+Ox3, euthymic affect Skin: no rashes, normal color, warm/dry Results & Data Vital Signs (Past 12 Hours) Vital Signs Temp Pulse Pulse Resp BP BP Pulse Ox 02/08/19 15:38 51 L 20 156/81 H 96 02/08/19 13:47 96 02/08/19 13:11 36.4 C L 50 L 24 159/82 H 98 Laboratory Results Short CBC 02/08/19 Range/Units 14:06 WBC 11.89 H (4.8-10.8) K/uL Hgb 11.5 L (14.0-18.0) g/dL Hct 36.8 L (42-52) % Plt Count 186 (130-400) K/uL BMP 02/08/19 14:06 Sodium 137 Potassium 3.9 Chloride 98 Carbon Dioxide 34 H BUN 21 H Creatinine 1.15 Glucose 140 H Calcium 9.0 Cardiac Enzymes 02/08/19 Range/Units 14:06 Troponin I 0.015 (0-0.045) ng/ml Liver Function 02/08/19 Range/Units 14:06 Total Bilirubin 0.5 (0.2-1) mg/dl AST 12 L (15-37) U/L ALT 21 (12-78) U/L Alkaline Phosphatase 138 H (45-117) U/L Albumin 2.4 L (3.4-5.0) gm/dl Diagnostic Findings CXR: IMPRESSION: 1. Near complete opacification left hemithorax. 2. Mildly progressive increase in density right base. Code Status & VTE Plan VTE Prophylaxis Plan VTE Prophylaxis will be ordered: Yes Supervising Physician Co-Signing Physician Notes I have seen and examined the patient and have discussed the case with the provider above. I agree with the assessment and plan as stated with the following exceptions. 74 yo M with terminal lung cancer and recurring pleural effusions presents with worsening shortness of breath. He appears to be willing to have his effusion drained tomorrow, but isn't sure about having an indwelling catheter. He is open to considering palliative radiation if that might be an option for him. He is feeling that he will leave here and go to the [facility] instead of to home at discharge. Palliative consult requested. Ill appearing in general, diminished breath sounds on the left, moving air better on the right, no wheezing heard. 3+ pitting edema to legs bilaterally, no jvd present. Appears to have lost weight. Agree with plan as above, and will also add some Roxanal to see if that helps his breathing in the meantime. (reassessed and was sleeping). Lasix given with 1450 off after about 6 hours. Will redose again in the morning. Jass, DO
[2019-02-08] MEDS ORDERED: FUROSEMIDE 40 MG in SYRINGE 0 ML IV ONE (17:30)
--- NOTE | 2019-02-08 18:01 | Emergency Department Note ---
Entered by Jennifer Meadows acting as a scribe for ED Provider Note CHIEF COMPLAINT: diminished left lung breath sounds HISTORY OF PRESENT ILLNESS: The patient is a 74 y/o male who presents to the emergency department for evaluation of diminished breath sounds in the left side that began prior to arrival. EMS states that they brought the patient from [facility] where he was for rehab evaluation when staff noted the diminished left side breath sounds. They note he had chest tubes removed a week or two ago. The patient states that he has been short of breath the past 2 or 3 days though. He notes he has a history of lung cancer and having fluid drained off with the most recent being 6 months ago. Pt denies LOC, headache, fevers, chills, diaphoresis, visual changes, neck pain, chest pain, breathing difficulties, nausea, vomiting, abdo rosy pain, back pain, melena, hematochezia, urinary symptoms, numbness, weakness, lymphadenopathy, rash, or other complaints. REVIEW OF SYSTEMS: See HPI for pertinent positives and negatives. A total of ten systems were reviewed and were otherwise negative. PMHx/PSHx: Lung cancer hypertension Acute respiratory failure PE acute pericardial effusions SOCIAL HISTORY: Patient lives at home. PHYSICAL EXAM: GENERAL: Awake, alert, dyspneic-appearing, in no distress HENT: Normocephalic, atraumatic. Oropharynx unremarkable. EYES: PERRL. Normal conjunctiva. Sclera non-icteric. NECK: Inspection normal. Non-tender. Supple. No nuchal rigidity. FROM. No masses. RESPIRATORY: Diminished breath sounds left side. No wheezes. No rales. Increased respiratory effort. CARDIAC: Normal rate. Normal rhythm. No murmurs. No rubs. Extremities warm and well perfused. Pulses equal. No JVD. GI: Soft, non-distended. No tenderness to palpation. No rebound or guarding. No masses. RECTAL: Deferred. MUSCULOSKELETAL: Atraumatic. Chest examination reveals no tenderness. The back is symmetrical on inspection without obvious abnormality. There is no CVA tenderness to palpation. No joint edema. LOWER EXTREMITIES: Calves are equal size bilaterally and non-tender. 3+ edema bilaterally. No discoloration. NEURO: Normal sensorium. No sensory or motor deficits noted. SKIN: No rash or jaundice noted. EMERGENCY DEPARTMENT COURSE: 1341: Past medical records reviewed. The patient was evaluated in room B09, and a complete history and physical examination were performed. Medical records note he was drained in December 2018 at [facility]. Admitted for acute respiratory failure. VATS procedure done in December as well. Clorox catheter on January 18, also had pneumonia, received vanco and zosyn and upon discharged received Cefdinir for 2 weeks. 1445: I spoke with Dr. Lockett- [facility] thoracic surgeon. He will evaluate the patient. 1500: I checked on the patient and updated him on the treatment plan. 1508: I spoke with Alysia Cortés for Dr. Jass medina hospitalist. They will evaluate for further management. MEDICAL DECISION MAKING: Prior records/ancillary studies reviewed. Triage Nursing notes reviewed and agree them. The patient's history was concerning for shortness of breath. Differential diagnosis: Etiologies such as pneumonia, recurrent effusion, COPD, reactive airway disease , CHF, cardiac ischemia, pulmonary embolism, pneumothorax, musculoskeletal, infections, gastrointestinal, as well as others were entertained. Physical examination: As above diminished breath sounds on the left side. ER treatment provided: Supplemental oxygen IV vancomycin IV cefepime On reassessment the patient felt better. Diagnostic interpretation by me: The electrocardiogram revealed a wide-complex rhythm. No ST elevation. The labs revealed a mild leukocytosis on CBC. Mild anemia also present. The patient's chemistry panel was unremarkable. No significant electro light abnormality. The patient does have blood cultures pending. Lactate was mildly elevated at 2.8. Imaging studies: Chest x-ray as noted below. The patient has opacification of left hemithorax concerning for recurrent effusion as well as consolidation concerning for pneumonia. Consultation: Consult was placed with thoracic surgery. The case was discussed. Patient will be seen in consultation for further management of the recurrent effusion. A consultation was placed with the hospitalist. The case was discussed and diagnostics were reviewed. The patient was evaluated in the ER for further treatment. IMPRESSION: Left sided pleural effusion, shortness of breath, pneumonia-left, history of lung cancer. PLAN: Admitted The scribe's documentation has been prepared under my direction and personally reviewed by me in its entirety. I confirm that the note above accurately reflects all work, treatment, procedures, and medical decision making performed by me. 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) Hydronephrosis, right (Chronic) HTN (hypertension) (Chronic) Paroxysmal A-fib (Chronic) Surgical History H/O knee surgery (Chronic) Hx of cholecystectomy (Chronic) Family History Other Cancer Social History Preferred Language: Latvian Communication Ability: Effective Travel Agent Required: No Beliefs That Will Affect Care: None marital status: Single Current Living Situation: Senior Living Current Living Situation Comment: [facility] current occupational status: retired Other Information That Helps Us Care for You: No Feels Safe at Home: Yes Smoking Status: Former smoker Second Hand Exposure: No ; Hx Alcohol Use: No Hx Substance Use: No Results & Data Vital Signs Vital Signs - 24 hr 02/08/19 13:09 02/08/19 13:11 02/08/19 13:15 Temperature 36.4 C L Temperature Source Oral Sepsis Recent Fever Within 48 Hours No Sepsis New/Unexplained Change in Mental Status No Sepsis Action Taken by Nursing No Action Required Pulse Rate 51 L 50 L 50 L Pulse Rate [Apical] Pulse Rate from SpO2 Sensor 50 L 50 L Respiratory Rate 26 H 24 19 Respiratory Effort / Characteristics Short of Breath Blood Pressure 159/82 H 159/82 H Blood Pressure [Left Arm] Blood Pressure Mean 107 107 Blood Pressure Mean [Left Arm] Blood Pressure Position Lying Pulse Oximetry 97 98 98 Oxygen Delivery Method Nasal Cannula Oxygen Flow Rate 6 02/08/19 13:20 02/08/19 13:30 02/08/19 13:40 Temperature Temperature Source Sepsis Recent Fever Within 48 Hours Sepsis New/Unexplained Change in Mental Status Sepsis Action Taken by Nursing Pulse Rate 50 L 50 L 51 L Pulse Rate [Apical] Pulse Rate from SpO2 Sensor 50 L 50 L 51 L Respiratory Rate 1 L 10 L 13 Respiratory Effort / Characteristics Blood Pressure 155/80 H Blood Pressure [Left Arm] Blood Pressure Mean 105 Blood Pressure Mean [Left Arm] Blood Pressure Position Pulse Oximetry 100 99 99 Oxygen Delivery Method Oxygen Flow Rate 02/08/19 13:47 02/08/19 13:50 02/08/19 14:00 Temperature Temperature Source Sepsis Recent Fever Within 48 Hours Sepsis New/Unexplained Change in Mental Status Sepsis Action Taken by Nursing Pulse Rate 51 L 51 L Pulse Rate [Apical] Pulse Rate from SpO2 Sensor 51 L Respiratory Rate 8 L 27 H Respiratory Effort / Characteristics Blood Pressure 145/77 H Blood Pressure [Left Arm] Blood Pressure Mean 99 Blood Pressure Mean [Left Arm] Blood Pressure Position Pulse Oximetry 96 97 Oxygen Delivery Method Nasal Cannula Oxygen Flow Rate 6 02/08/19 14:10 02/08/19 14:20 02/08/19 14:30 Temperature Temperature Source Sepsis Recent Fever Within 48 Hours Sepsis New/Unexplained Change in Mental Status Sepsis Action Taken by Nursing Pulse Rate 51 L 50 L 51 L Pulse Rate [Apical] Pulse Rate from SpO2 Sensor 51 L 50 L 51 L Respiratory Rate 9 L 11 L 4 L Respiratory Effort / Characteristics Blood Pressure 158/80 H Blood Pressure [Left Arm] Blood Pressure Mean 106 Blood Pressure Mean [Left Arm] Blood Pressure Position Pulse Oximetry 96 100 97 Oxygen Delivery Method Oxygen Flow Rate 02/08/19 14:40 02/08/19 14:50 02/08/19 15:00 Temperature Temperature Source Sepsis Recent Fever Within 48 Hours Sepsis New/Unexplained Change in Mental Status Sepsis Action Taken by Nursing Pulse Rate 56 L 50 L 51 L Pulse Rate [Apical] Pulse Rate from SpO2 Sensor 51 L 50 L Respiratory Rate 8 L 20 27 H Respiratory Effort / Characteristics Blood Pressure 154/80 H Blood Pressure [Left Arm] Blood Pressure Mean 104 Blood Pressure Mean [Left Arm] Blood Pressure Position Pulse Oximetry 95 99 Oxygen Delivery Method Oxygen Flow Rate 02/08/19 15:10 02/08/19 15:20 02/08/19 15:30 Temperature Temperature Source Sepsis Recent Fever Within 48 Hours Sepsis New/Unexplained Change in Mental Status Sepsis Action Taken by Nursing Pulse Rate 50 L 50 L 50 L Pulse Rate [Apical] Pulse Rate from SpO2 Sensor Respiratory Rate 21 21 22 Respiratory Effort / Characteristics Blood Pressure 156/81 H Blood Pressure [Left Arm] Blood Pressure Mean 106 Blood Pressure Mean [Left Arm] Blood Pressure Position Pulse Oximetry Oxygen Delivery Method Oxygen Flow Rate 02/08/19 15:38 02/08/19 15:40 02/08/19 15:50 Temperature Temperature Source Sepsis Recent Fever Within 48 Hours Sepsis New/Unexplained Change in Mental Status Sepsis Action Taken by Nursing Pulse Rate 51 L 52 L Pulse Rate [Apical] 51 L Pulse Rate from SpO2 Sensor 52 L Respiratory Rate 20 7 L 23 Respiratory Effort / Characteristics Blood Pressure Blood Pressure [Left Arm] 156/81 H Blood Pressure Mean Blood Pressure Mean [Left Arm] 106 Blood Pressure Position Pulse Oximetry 96 94 Oxygen Delivery Method Nasal Cannula Oxygen Flow Rate 2 02/08/19 16:00 02/08/19 16:10 02/08/19 16:20 Temperature Temperature Source Sepsis Recent Fever Within 48 Hours Sepsis New/Unexplained Change in Mental Status Sepsis Action Taken by Nursing Pulse Rate 52 L 52 L 52 L Pulse Rate [Apical] Pulse Rate from SpO2 Sensor 52 L 53 L 52 L Respiratory Rate 26 H 28 H 29 H Respiratory Effort / Characteristics Blood Pressure 165/88 H Blood Pressure [Left Arm] Blood Pressure Mean 113 Blood Pressure Mean [Left Arm] Blood Pressure Position Pulse Oximetry 95 94 95 Oxygen Delivery Method Oxygen Flow Rate 02/08/19 16:30 02/08/19 16:40 02/08/19 16:50 Temperature Temperature Source Sepsis Recent Fever Within 48 Hours Sepsis New/Unexplained Change in Mental Status Sepsis Action Taken by Nursing Pulse Rate 52 L 51 L 51 L Pulse Rate [Apical] Pulse Rate from SpO2 Sensor 55 L Respiratory Rate 29 H 27 H 27 H Respiratory Effort / Characteristics Blood Pressure 159/82 H Blood Pressure [Left Arm] Blood Pressure Mean 107 Blood Pressure Mean [Left Arm] Blood Pressure Position Pulse Oximetry 82 L Oxygen Delivery Method Oxygen Flow Rate 02/08/19 17:00 02/08/19 17:10 02/08/19 17:20 Temperature Temperature Source Sepsis Recent Fever Within 48 Hours Sepsis New/Unexplained Change in Mental Status Sepsis Action Taken by Nursing Pulse Rate 51 L 63 49 L Pulse Rate [Apical] Pulse Rate from SpO2 Sensor Respiratory Rate 22 26 H 20 Respiratory Effort / Characteristics Blood Pressure 165/84 H Blood Pressure [Left Arm] Blood Pressure Mean 111 Blood Pressure Mean [Left Arm] Blood Pressure Position Pulse Oximetry Oxygen Delivery Method Oxygen Flow Rate 02/08/19 17:30 02/08/19 17:31 02/08/19 17:40 Temperature Temperature Source Sepsis Recent Fever Within 48 Hours Sepsis New/Unexplained Change in Mental Status Sepsis Action Taken by Nursing Pulse Rate 50 L 53 L Pulse Rate [Apical] Pulse Rate from SpO2 Sensor Respiratory Rate 18 14 16 Respiratory Effort / Characteristics Blood Pressure 150/86 H Blood Pressure [Left Arm] Blood Pressure Mean 107 Blood Pressure Mean [Left Arm] Blood Pressure Position Pulse Oximetry Oxygen Delivery Method Oxygen Flow Rate Home Medications Current Medication List: was personally reviewed by me Laboratory Data Attestation: I reviewed the patient's lab results. Result diagrams: 02/08/19 14:06 02/08/19 14:06 Lab Results 02/08/19 02/08/19 02/08/19 Range/Units 14:06 14:06 14:06 WBC 11.89 H (4.8-10.8) K/uL RBC 4.42 L (4.7-6.1) M/uL Hgb 11.5 L (14.0-18.0) g/dL POC Hgb (14.0-18.0) g/dl Hct 36.8 L (42-52) % POC Hct (42-52) % MCV 83.3 (80-100) fL MCH 26.0 (25-34) pg MCHC 31.3 L (32-36) g/dL RDW Std Deviation 61.0 H (36.4-46.3) fL RDW Coeff of Brenda 19.9 H (11.5-14.5) % Plt Count 186 (130-400) K/uL MPV 8.5 (7.4-10.4) fL Immature Gran % (Auto) 0.4 % Neut % (Auto) 88.5 % Lymph % (Auto) 6.1 % [place] % (Auto) 4.6 % Eos % (Auto) 0.3 % Baso % (Auto) 0.1 % Immature Gran # (Auto) 0.05 H (0.00-0.02) K/uL Neut # (Auto) 10.53 H (1.4-6.5) K/uL Lymph # (Auto) 0.72 L (1.2-3.4) K/uL [place] # (Auto) 0.55 (0.11-0.59) K/uL Eos # (Auto) 0.03 (0-0.5) K/uL Baso # (Auto) 0.01 (0-0.2) K/uL PT 11.6 (9.0-12.0) Seconds INR 1.1 (0.9-1.1) APTT 28.8 (21.0-31.0) Seconds PTT Ratio 1.1 POC Sodium (135-144) mEq/L Sodium 137 (136-145) mmol/L POC Potassium (3.3-5.0) mEq/L Potassium 3.9 (3.5-5.1) mmol/L POC Chloride (101-112) mEq/L Chloride 98 (98-107) mmol/L Carbon Dioxide 34 H (21-32) mmol/L POC Total CO2 (24-31) mEq/l Anion Gap 5.0 (3-11) POC Anion Gap (16-25) mmol/L POC BUN (7-18) mg/dl BUN 21 H (7-18) mg/dl Creatinine 1.15 (0.6-1.4) mg/dl POC Creatinine (0.6-1.3) mg/dl Est Cr Clr Drug Dosing 63.7 ml/min Est GFR ( Amer) 73.3 Est GFR (Non-Af Amer) 63.2 BUN/Creatinine Ratio 18.0 (10-20) Glucose 140 H (70-99) mg/dl POC Glucose (other) (70-99) mg/dl POC Lactic Acid Laz (0.90-1.70) mmol/L Calcium 9.0 (8.5-10.1) mg/dl POC Ioniz Calcium Leonidas (1.12-1.32) mmol/l Magnesium 1.9 (1.8-2.4) mg/dl Total Bilirubin 0.5 (0.2-1) mg/dl AST 12 L (15-37) U/L ALT 21 (12-78) U/L Alkaline Phosphatase 138 H (45-117) U/L Troponin I 0.015 (0-0.045) ng/ml Total Protein 6.3 L (6.4-8.2) gm/dl Albumin 2.4 L (3.4-5.0) gm/dl Globulin 3.9 (2.5-4.0) gm/dl Albumin/Globulin Ratio 0.6 L (0.9-2) 02/08/19 02/08/19 Range/Units 14:12 14:17 WBC (4.8-10.8) K/uL RBC (4.7-6.1) M/uL Hgb (14.0-18.0) g/dL POC Hgb 12.6 L (14.0-18.0) g/dl Hct (42-52) % POC Hct 37 L (42-52) % MCV (80-100) fL MCH (25-34) pg MCHC (32-36) g/dL RDW Std Deviation (36.4-46.3) fL RDW Coeff of Brenda (11.5-14.5) % Plt Count (130-400) K/uL MPV (7.4-10.4) fL Immature Gran % (Auto) % Neut % (Auto) % Lymph % (Auto) % [place] % (Auto) % Eos % (Auto) % Baso % (Auto) % Immature Gran # (Auto) (0.00-0.02) K/uL Neut # (Auto) (1.4-6.5) K/uL Lymph # (Auto) (1.2-3.4) K/uL [place] # (Auto) (0.11-0.59) K/uL Eos # (Auto) (0-0.5) K/uL Baso # (Auto) (0-0.2) K/uL PT (9.0-12.0) Seconds INR (0.9-1.1) APTT (21.0-31.0) Seconds PTT Ratio POC Sodium 137 (135-144) mEq/L Sodium (136-145) mmol/L POC Potassium 3.9 (3.3-5.0) mEq/L Potassium (3.5-5.1) mmol/L POC Chloride 94 L (101-112) mEq/L Chloride (98-107) mmol/L Carbon Dioxide (21-32) mmol/L POC Total CO2 33 H (24-31) mEq/l Anion Gap (3-11) POC Anion Gap 14.0 L (16-25) mmol/L POC BUN 20 H (7-18) mg/dl BUN (7-18) mg/dl Creatinine (0.6-1.4) mg/dl POC Creatinine 1.1 (0.6-1.3) mg/dl Est Cr Clr Drug Dosing ml/min Est GFR ( Amer) Est GFR (Non-Af Amer) BUN/Creatinine Ratio (10-20) Glucose (70-99) mg/dl POC Glucose (other) 140 H (70-99) mg/dl POC Lactic Acid Laz 2.88 H (0.90-1.70) mmol/L Calcium (8.5-10.1) mg/dl POC Ioniz Calcium Leonidas 1.17 (1.12-1.32) mmol/l Magnesium (1.8-2.4) mg/dl Total Bilirubin (0.2-1) mg/dl AST (15-37) U/L ALT (12-78) U/L Alkaline Phosphatase (45-117) U/L Troponin I (0-0.045) ng/ml Total Protein (6.4-8.2) gm/dl Albumin (3.4-5.0) gm/dl Globulin (2.5-4.0) gm/dl Albumin/Globulin Ratio (0.9-2) Administered Medications Discontinued Medications Cefepime HCl (Maxipime) 2,000 mg in 20 mls @ 5 mls/min IV NOW STA; Protocol Stop: 02/08/19 14:44 Last Admin: 02/08/19 15:37 Dose: 5 mls/min Documented by: [id number] Vancomycin HCl 1,750 mg/ (Sodium Chloride) 535 mls @ 200 mls/hr IV NOW ONE Stop: 02/08/19 17:21 Last Admin: 02/08/19 15:37 Dose: 200 mls/hr Documented by: [id number] Imaging Data Radiologist's Impression: Radiology results as stated below per my review and the radiologist's interpretation: XR chest 1V portable CLINICAL HISTORY: R/o collapsed lung again, Left sided dyspnea COMPARISON STUDY: 01/23/2019 FINDINGS: There complete opacification left hemithorax. Slightly progressive parenchymal and/or pleural reactive change right base. Right mid and upper lung are clear. IMPRESSION: 1. Near complete opacification left hemithorax. 2. Mildly progressive increase in density right base. The above report was generated using voice recognition software. It may contain grammatical, syntax or spelling errors. Electronically signed by: Khoa Pham M.D. 02/08/2019 1:40 PM ECG Data Attestation: I personally reviewed and interpreted this ECG as follows: Indication: SOB/dyspnea Rate (beats per minute): 51 Rhythm: other (Wide QRS ) Findings: + other (poor Q wave progression) and + nonspecific-ST abn; no ST depression and no ST elevation Blood Pressure Blood Pressure Findings: Elevated blood pressure Blood Pressure Disposition: Referred to patients primary care provider Discharge Plan Visit Data Chief Complaint: Respiratory Problems Stated Complaint: RESP PROBLEMS ED Provider: Miguel Domínguez Discharge Problem: Pleural effusion on left, Breath, shortness, Pneumonia involving left lung, History of lung cancer Patient Disposition: Being Evaluated by Hospitalist Forms Stand Alone Forms: My [facility] Prescriptions Prescriptions: No Action cyanocobalamin (vitamin B-12) 500 mcg Tablet 1,000 mcg PO QAM RF: 0 Eliquis 5 mg Tablet 5 mg PO QAM RF: 0 theophylline 200 mg Tablet Extended Release 12 Hr 200 mg PO BID RF: 0 acetaminophen 325 mg Tablet 325 mg PO Q6H PRN (Reason: Fever Or Pain) RF: 0 pseudoephedrine-guaifenesin 60-600 mg Tablet Extended Release 12 Hr 1 tab PO BID PRN (Reason: Congestion) RF: 0 amlodipine 5 mg Tablet 10 mg PO DAILY RF: 0 bisacodyl [Dulcolax (bisacodyl)] 10 mg Suppository 10 mg AR DAILY PRN (Reason: Constipation) RF: 0 ipratropium-albuterol 0.5 mg-3 mg(2.5 mg base)/3 mL Solution For Nebulization 3 ml INHALATION Q4H RF: 0 prednisone 20 mg Tablet 20 mg PO DAILY RF: 0 hydralazine 25 mg Tablet 25 mg PO TID RF: 0 tamsulosin 0.4 mg Capsule 0.4 mg PO DAILY RF: 0 pantoprazole [Protonix] 40 mg Tablet,Delayed Release (Dr/Ec) 40 mg PO DAILY RF: 0 folic acid 1 mg Tablet 1 mg PO DAILY RF: 0 furosemide [Lasix] 20 mg Tablet 20 mg PO DAILY RF: 0 Incruse Ellipta 62.5 mcg/actuation Blister With Device 1 inh INHALATION DAILY RF: 0 Referrals Referrals: Reagan Rawls [Primary Care Provider] - The scribe's documentation has been prepared under my direction and personally reviewed by me in its entirety. I confirm that the note above accurately reflects all work, treatment, procedures, and medical decision making performed by me.
[2019-02-08] MEDS ORDERED: OXYCODONE/ACETAMINOPHEN 5mg/325mg TAB PO PRN (18:11)
[2019-02-08] MEDS ORDERED: POLYETHYLENE (MIRALAX) 17 GM PACK PO PRN (18:11)
[2019-02-08] MEDS ORDERED: ACETAMINOPHEN 325 MG TAB PO PRN (18:11)
[2019-02-08] MEDS ORDERED: ALBUT/IPRATROP 3MG/0.5MG NEB 3 ML VIAL INH SCH ×2 (18:30→19:00)
[2019-02-08] MEDS ORDERED: guaiFENesin 600 MG TABCR PO PRN (19:04)
[2019-02-08] MEDS ORDERED: PSEUDOEPHEDRINE HCL 30 MG TAB PO PRN (19:15)
[2019-02-08] MEDS ORDERED: MoRPHine SULFATE 5 MG/0.25 ML UDP PO PRN (19:47)
[2019-02-08 20:24] LABS: Appearance Urine Clear (Clear); Bacteria Urine Automated Negative (Negative); Bilirubin Urine Negative (Negative); Blood Urine 2+ (Negative); Cast Urine Automated 0 /lpf (0-5); Color Urine Yellow; Epithelial Cell Urine Auto 0-5 /lpf (0-5); Glucose Urine UA Negative (Negative); Ketones Urine Negative (Negative); Leukocyte Esterase Urine Trace (Negative); Nitrite Urine Negative (Negative); Protein Urine Negative (Negative); Specific Gravity Urine 1.011 (1.000-1.030); Urobilinogen Urine Negative (Negative); pH Urine 7.5 (4.5-7.5)
--- NOTE | 2019-02-08 20:29 | Pharmacy Report ---
Pharmacy Abx Dose Short Note - Date of Service February 08, 2019 - Assessment & Plan Assessment 74 year old M presenting from [facility] ordered empiric vancomycin for treatment of possible pneumonia vs. CHF Patient has significant past medical history including left lung squamous cell carcinoma with pleural effusion, COPD, CHF (combined systolic/diastolic), Afib, and hypertension. WBC: 11.89, SCr: 1.15 mg/dL (appears to be about baseline), afebrile on admission Blood cultures x 2: pending MRSA nasal swab: pending (can likely discontinue vanco if negative) Plan Vancomycin IV * Estimated PK Parameters: Vd 0.7 L/kg, Dequan 0.058 hr-1, t1/2 12 hr * Loading dose: 1750 mg (21 mg/kg) * Maintenance dose: 1250 mg IV (15 mg/kg) every 14 hours * Goal trough level for pneumonia : 15 to 20 mcg/mL * Trough level ordered for 02/10/19 @0830 Pharmacy will continue to follow and will adjust dose/frequency as necessary. Thank you.
[2019-02-08] MEDS: MoRPHine SULFATE 5 MG/0.25 ML UDP PO SCH (20:34)
[2019-02-09] MEDS: VANCOMYCIN HCL 1,250 MG in SODIUM CHLORIDE 0.9% 250 ML IV SCH ×2 (04:41→18:40)
[2019-02-09 07:07] LABS: Hematocrit (blood only) 36.6 % (42-52); Mean Corpuscular Hemoglobin 25.5 pg (25-34); Mean Corpuscular Hgb Conc 30.1 g/dL (32-36); Mean Corpuscular Volume 84.7 fL (80-100); Mean Platelet Volume 8.5 fL (7.4-10.4); Platelet Count 173 K/uL (130-400); RDW Coefficient of Variation 19.9 % (11.5-14.5); RDW Standard Deviation 62.1 fL (36.4-46.3); Red Blood Count 4.32 M/uL (4.7-6.1); White Blood Count 9.12 K/uL (4.8-10.8)
[2019-02-09] MEDS: ALBUT/IPRATROP 3MG/0.5MG NEB 3 ML VIAL INH SCH ×4 (07:08→18:53)
[2019-02-09 07:39] LABS: BUN Creatinine Ratio 19.6 (10-20); Calcium 8.9 mg/dl (8.5-10.1); Est GFR (African American) 76.5
[2019-02-09] MEDS ORDERED: AMLODIPINE BESYLATE 5 MG TAB PO SCH (09:00)
[2019-02-09] MEDS ORDERED: FUROSEMIDE 40 MG in SYRINGE 0 ML IV ONE (09:00)
[2019-02-09] MEDS ORDERED: LIDOCAINE HCL 1% 20 ML VIAL ONE (09:54)
[2019-02-09] MEDS: TAMSULOSIN HCL 0.4 MG CAP PO SCH (10:38)
[2019-02-09] MEDS: APIXABAN 5 MG TABLET PO SCH (10:38)
[2019-02-09] MEDS: FOLIC ACID 1 MG TAB PO SCH (10:38)
[2019-02-09] MEDS: CYANOCOBALAMIN 500 MCG TABLET (VITAMIN B-12) PO SCH (10:40)
[2019-02-09] MEDS: PANTOprazole 40 MG TAB PO SCH (10:40)
[2019-02-09] MEDS: predniSONE 20 MG TAB PO SCH (10:40)
--- NOTE | 2019-02-09 10:58 | XRay Report ---
XR chest 1V portable HISTORY: S/P Thoracentesis COMPARISON: Chest 02/08/2019. FINDINGS: Interval placement left-sided chest tube is terminates in the left upper to midlung zone. D ecrease in size in the loculated moderate left pleural effusion. There is a small left apical pneumot horax with a pleural gap of 1.5 cm. The heart remains enlarged. Diffuse interstitial thickening persi sts. Decrease in size in the small right pleural effusion with improved aeration at the right lung ba se. No right-sided pneumothorax. IMPRESSION: 1. Interval placement of a left-sided chest tube with decrease in size in the loculated moderate left pleural effusion. 2. There is a small left apical pneumothorax. 3. Decrease in size in the small right pleural effusion with improved aeration at the right lung base . Electronically signed by: Owen Cedeno M.D. 02/09/2019 10:56 AM
--- NOTE | 2019-02-09 11:03 | Palliative Care Consultation ---
Date of Consultation February 09, 2019 Assessment & Plan (1) Goals of care, counseling/discussion: -74 year old male patient with PMH of chronic respiratory failure on 2-3L home O2, left lung squamous cell carcinoma with history of malignant pleural effusion, COPD, chronic combined systolic and diastolic heart failure, chronic bradycardia/paroxysmal A. fib on Eliquis, chronic right hydronephrosis with Johnson in place and other medical problems listed below presented with worsening shortness of breath over the past few days at the [facility]. Patient was recently admitted to our facility from 01/15-01/26 for acute on chronic respiratory failure in setting of malignant pleural effusion with PleurX catheter malfunction and pneumonia. Patient was treated with abx and was seen by thoracic surgery. Pleurx catheter had been removed due to risk of infection. Patient was seen by palliative care service during last admission to discuss goals of care-- patient planned to meet with oncology to discuss treatment options. Patient apparently did meet with oncology who stated he was not a c andidate for chemotherapy. Patient now returns with increased SOB, CXR shows near complete opacification of left hemithorax. Thoracic surgeon is placing Pleur-x catheter today. patient completed a POLST form last evening stating he wants to be kept comfortable at this point. Palliative care consulted. -Met with patient in room 260. He is AA&O x4. Visibly short of breath. -Patient states, "I just want to be comfortable. I don't want to end up a vegetable." He stats he completed this POLST form last night to be sure that everyone knows his wishes. -Dr. Webber presented to the bedside to place Pleurx catheter for comfort, so our conversation was cut somewhat short. But patient did state that he is at the point in his life that he wants to focus on quality and comfort. It was noted in the admission note to consider a rad/onc consult for palliative XRT-- will defer this to hospitalist. Patient would likely want any procedure that will extend his life and keep him comfortable. -Patient currently has no pain, hoping SOB improves with pleurx catheter. Patient does have Roxanol ordered as needed, which I agree with. -Patient will likely need to go back to the [facility] after hospitalization. He was there for rehab after last hospitalization, but it does not appear that patient is going to improve enough to get back home independently. Patient previously named his friend Jarrod Monk as decision maker/POA. -Palliative will continue to follow as needed. (2) Malignant pleural effusion: (3) Squamous cell carcinoma of left lung: (4) PNA (pneumonia): Supervising Physician Co-Signing Physician Notes Chart reviewed, patient seen and examined. Patient known to our service from prior hospitalization. Patient states he is a little bit more comfortable after Pleurx catheter placed and 450 cc of fluid removed. PE: Awake alert, mild shortness of breath HEENT: EOMI Respirations: Mildly labored with minimal activity in conversation, diminished breath sounds CV: Regular rhythm, positive lower extremity edema-diminished Abdomen: Soft, nontender Neuro: Alert and oriented Agree with above note, assessment and plan as per JERMAINE Krishnan. Will continue to follow and assist patient with medical decision making d History of Present Illness Attending Physician: Lasha Duque MD History of Present Illness This 74 year old male patient with PMH of chronic respiratory failure on 2-3L home O2, left lung squamous cell carcinoma with history of malignant pleural effusion, COPD, chronic combined systolic and diastolic heart failure, chronic bradycardia/paroxysmal A. fib on Eliquis, chronic right hydronephrosis with Johnson in place and other medical problems listed below presented with worsening shortness of breath over the past few days at the [facility]. Patient was recently admitted to our facility from 01/15-01/26 for acute on chronic respiratory failure in setting of malignant pleural effusion with PleurX catheter malfunction and pneumonia. Patient was treated with abx and was seen by thoracic surgery. Pleurx catheter had been removed due to risk of infection. Patient was seen by palliative care service during last admission to discuss goals of care-- patient planned to meet with oncology to discuss treatment options. Patient apparently did meet with oncology who stated he was not a candidate for chemotherapy. Patient now returns with increased SOB, CXR shows near complete opacification of left hemithorax. Thoracic surgeon is placing Pleur-x catheter today. patient completed a POLST form last evening stating he wants to be kept comfortable at this point. Palliative care consulted. Thank you kindly for this consult. Palliative care team will follow as needed. Allergies Allergy/AdvReac Type Severity Reaction Status Date / Time hepatitis B immune globulin AdvReac Unknown Unverified 02/08/19 14:44 losartan AdvReac hyperkalemi Verified 02/08/19 14:44 a Home Medications Home Medications Medication Instructions Recorded Confirmed Type Eliquis 5 mg PO QAM 01/10/19 02/08/19 History cyanocobalamin (vitamin B-12) 1,000 mcg PO QAM 01/10/19 02/08/19 History acetaminophen 325 mg PO Q6H PRN 02/08/19 02/08/19 History amlodipine 10 mg PO DAILY 02/08/19 02/08/19 History bisacodyl [Dulcolax (bisacodyl)] 10 mg OR DAILY PRN 02/08/19 02/08/19 History folic acid 1 mg PO DAILY 02/08/19 02/08/19 History furosemide [Lasix] 20 mg PO DAILY 02/08/19 02/08/19 History hydralazine 25 mg PO TID 02/08/19 02/08/19 History ipratropium-albuterol 3 ml INHALATION Q4H 02/08/19 02/08/19 History pantoprazole [Protonix] 40 mg PO DAILY 02/08/19 02/08/19 History prednisone 20 mg PO DAILY 02/08/19 02/08/19 History pseudoephedrine-guaifenesin 1 tab PO BID PRN 02/08/19 02/08/19 History tamsulosin 0.4 mg PO DAILY 02/08/19 02/08/19 History theophylline 200 mg PO BID 02/08/19 02/08/19 History umeclidinium [Incruse Ellipta] 1 inh INHALATION DAILY 02/08/19 02/08/19 History Patient History Medical History Malignant pleural effusion (Chronic) COPD (chronic obstructive pulmonary disease) (Chronic) Squamous cell carcinoma of left lung (Chronic) 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) (Chronic) Hydronephrosis, right (Chronic) HTN (hypertension) (Chronic) Paroxysmal A-fib (Chronic) Surgical History H/O knee surgery (Chronic) Hx of cholecystectomy (Chronic) Family History Other Cancer Social History Preferred Language: Guinean Communication Ability: Effective Director Day Care Center Required: No Beliefs That Will Affect Care: None marital status: Single Current Living Situation: [facility] Current Living Situation Comment: [facility] current occupational status: retired Other Information That Helps Us Care for You: No Feels Safe at Home: Yes Smoking Status: Former smoker Second Hand Exposure: No ; Hx Alcohol Use: No Hx Substance Use: No Review of Systems Constitutional: + weakness Respiratory: + cough and + dyspnea Cardiovascular: + edema; no chest pain Gastrointestinal: no abdominal pain and no nausea Neurologic: no confusion Psychiatric: no anxiety Physical Exam Constitutional: + ill appearing ENMT: external ear and nose normal, oropharynx normal Respiratory: + labored breathing Auscultation: + diminished lung sounds and + crackles Cardiovascular: Rate/Rhythm: regular rate and regular rhythm Extremities: + edema (trace BLE) Gastrointestinal (Abdomen): Inspection/Auscultation: normal bowel sounds Percussion/Palpation: abdomen soft; abdomen nontender Neurologic: moves all extremities and awake Psychiatric: Orientation: alert and oriented x 3 Insight: good insight Results & Data Vital Signs (Past 12 Hours) Vital Signs Temp Pulse Resp BP Pulse Ox 02/09/19 07:20 36.3 C L 40 L 18 170/86 H 97 02/09/19 07:10 47 L 22 93 02/09/19 05:40 40 L 22 168/85 H 94 02/09/19 03:48 36.5 C 44 L 28 H 180/86 H 94 Time Spent Midlevel 60 minutes with >50% of the time spent at bedside with patient discussing condit ion and GOC.
[2019-02-09 11:21] LABS: Glucose Pleural Fluid 106 mg/dl
[2019-02-09 11:29] LABS: LDH Pleural Fluid 85 U/L; Total Protein Pleural Fluid 1.2 g/dl
--- NOTE | 2019-02-09 12:00 | Operative Report ---
DATE OF OPERATION: 02/09/2019 PREOPERATIVE DIAGNOSIS: Recurrent left malignant pleural effusion. POSTOPERATIVE DIAGNOSIS: Recurrent left malignant pleural effusion. PROCEDURE: Insertion of PleurX catheter under ultrasound guidance. SURGEON: Gene Webber MD. GAUGER DELIVERY: meng Wood 3. ANESTHESIA: Local. SPECIFICS OF PROCEDURE: After appropriate consent had been obtained and discussed with the patient, he was placed in right lateral decubitus position, his left chest was prepped and draped, he was evaluated with an ultrasound. Interestingly enough, it appeared that the diaphragm was markedly elevated on the left, but there was a rim of fluid which was pretty high up. I went pretty close to the scapular tip posteriorly and found a good window into the pleural cavity and marked this with an indelible ink. He was prepped and draped in usual sterile fashion. After appropriate timeout had been called, a 25-gauge needle, 1% Xylocaine with epinephrine was used to raise a skin wheal over this area which had been marked. We then anesthetized the intercostal muscles and got into free flowing fairly clear fluid. A guidewire was inserted through the needle and the needle removed. This insertion site was enlarged to about 1 cm. Approximately, 10 cm anterior and inferior to this, another skin wheal was raised with 25-gauge needle, 1% Xylocaine. A 1 cm incision was made. A long needle was used with 1% Xylocaine without epinephrine and anesthetized subcutaneous tissues between these 2 incisions and a tunneler was attached to PleurX catheter and dragged from the anterior to posterior incision. Tunneler was detached. Introducer sheath with a peel away catheter was slid over the guidewire into the pleural cavity and inner cannula guidewire removed and then the PleurX catheter was slid through the peel-away sheath which was removed. A 2-0 silk sutures were used to close the posterior incision and 2-0 silk suture was used to anchor the catheter to the patient's skin anteriorly. About 450 mL of fluid which was a clear yellow fluid was drained from the pleural cavity. We drain this dry. He had some coughing, also had some air. He may have a trapped lung. Antimicrobial dressings were placed after he was detached from suction. A sterile cap was placed. Chest x-ray is pending at this time. I attest to the content of the Intraoperative Record and any orders documented therein. Any exception s are noted below.
[2019-02-09 12:01] LABS: Appearance Pleural Fluid CLEAR; Color Pleural Fluid PALE YELLOW; Mononuclear WBC Pleural 89.4 %; Polynuclear WBC Pleural 10.6 %; RBC Pleural Fluid (A) < 3000 /uL; Source Pleural Fluid LEFT LUNG; WBC Pleural Fluid (A) 253 /uL
--- NOTE | 2019-02-09 12:24 | Consultation Report ---
DATE OF CONSULTATION: 02/09/2019 REASON FOR CONSULTATION: Left recurrent pleural effusion. HISTORY OF PRESENT ILLNESS: This is a 74-year-old male who was diagnosed with a squamous cell carcinoma of his left lung and had bilateral pleural effusion and underwent a left thoracoscopy along with a bronchoscopy, insertion of a chest tube and a [facility] The patient was sent to [facility] here in [place] from [place], continued draining malignant fluid, and had such a large amount that his chest tube was left in place. The PleurX catheter really was not working. We removed his chest tubes and he really did not accumulate too much fluid after so we did that, so we sent him back to [facility]. This was done on 01/16/2019. He presented back 23 days later with increasing shortness of breath and was found to have increasing left pleural effusion, which is not surprising. PAST MEDICAL HISTORY: 1. Squamous cell carcinoma, left upper lobe. 2. Bilateral malignant pleural effusion. 3. Paroxysmal atrial fibrillation. 4. Long history of cigarette smoking. 5. Chronic obstructive pulmonary disease. 6. Hypernatremia. 7. Hyperkalemia. 8. Hypertension. PAST SURGICAL HISTORY: 1. Left thoracoscopy with limited decortication, pleurectomy, insertion of chest tube, and an indwelling pleural catheter. 2. Bronchoscopy. 3. Esophagoscopy. MEDICATIONS: Please see chart. SOCIAL HISTORY: The patient really does not have much in the way of family support. He is a resident of [facility]. He does not smoke now. ALLERGIES: HEPATITIS B IMMUNE GLOBULIN AND LOSARTAN. FAMILY MEDICAL HISTORY: Noncontributory. REVIEW OF SYSTEMS: He is not very talkative. He states that he has been "pretty tired." He has had congestive heart failure in the past. He is not eating very well. He has anasarca now. He is not requiring much in the way of oxygen. He has had no neurologic events. He has had no wound breakdown. He has had no visual or auditory symptoms. He denies palpitations. PHYSICAL EXAMINATION: GENERAL: This is a cachectic-appearing male who does carry on a conversation. He has got some temporal wasting. His affect is flat. HEENT: His sclerae are pale but anicteric. NECK: He has no neck vein distention at 45 degrees. I do not really feel any supraclavicular or cervical lymphadenopathy. LUNGS: He has markedly decreased breath sounds on the left and also decreased breath sounds on the right base. His chest tube sites have all healed nicely on the left. HEART: He has a slow, regular rate of his heart at about 40 beats per minute, which is unchanged. There was discussion about putting a pacemaker in him as he is in a junctional rhythm with his atrial fibrillation; however, given his grim prognosis with his malignant pleural effusions, this has not been offered. Upon auscultation of his heart, he has a regular rhythm at about 40 beats per minute. We laid him down to insert the PleurX catheter and he did have neck vein distention at 15 degrees. ABDOMEN: He has flank edema. His abdomen is soft and nontender. EXTREMITIES: He has got marked bilateral lower extremity edema with no wound breakdown. It is difficult for me to feel pulses. NEUROLOGIC: He is moving all extremities to command. DATA: Reviewed a chest x-ray and he is completely opacified this left side. He has got fluid that appears to be encasing his lung. ASSESSMENT AND PLAN: Probable recurrent malignant pleural effusion. I am going to insert a PleurX catheter under ultrasound guidance later today. SVETLANA
--- NOTE | 2019-02-09 18:32 | Hospitalist Progress Note ---
Date of Service February 09, 2019 Assessment & Plan (1) Chronic respiratory failure with hypoxia: (2) Malignant pleural effusion: Present on admission with worsening SOB CXR showed near complete opacification left hemithorax. Mildly progressive increase in density right base. Thoracic surgery on board PleurX cath placed today Breathing seems improve Continue oxygen supplement Will repeat CXR in am (3) PNA (pneumonia): CXR showed mildly progressive increase in density right base. Recently completed 2 weeks of cefdinir Mild leukocytosis of 11.89, mild lactic acidosis of 2.8 on admission Will get procalcitonin level On IV Vanco, will consider to change abx to oral Continue monitor (4) 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): Received IV lasix 40mg Will transition to oral lasix in am (5) Squamous cell carcinoma of left lung: Diagnosed in July 2018 with squamous cell carcinoma as per [facility] records Not a candidate for systemic treatment like chemotherapy as per recent visit with Oncology Oncology recommended comfort care felt to be appropriate Pt is request to see radiation oncology for palliative XRT Will consult radiation oncology (6) Hydronephrosis, right: Chronic indwelling jones catheter present with appropriate output (7) HTN (hypertension): BP has been fluctuated Continue amlodipine, hydralazine (which was increased during previous admission) Continue monitor BP (8) Paroxysmal A-fib: Currently bradycardic in high 40s-low 50s Continue Eliquis (9) Bradycardia: Not a candidate for pacemaker insertion given extremely poor prognosis of underlying malignancy as per cardiology Continue Theophylline to help with the heart rate Continue monitor on telemetry DVT Ppx: Eliquis Code status: DNR Dispo: Will discharge once medically stable Palliative care on board Subjective Pt was seen and examined Lying in bed with mild respiratory distress Pt said that his breathing slightly improves He said that his breathing improves after pleurX catheter placed Physical Exam Physical Exam: General- No acute distress Head- atraumatic Eyes- PERRL, EOMI, ENT- oropharynx clear Neck- supple, no JVD Lungs- Decrease BS Heart- Bradycardia, +systolic murmur Abdomen- normal bowel sounds, soft, nontender Extremities- no calf tenderness, +edema Neuro- alert, oriented x 3; PERRL, EOMI; no facial palsy; no dysarthria Skin- warm & dry Results & Data Vital Signs (Past 12 Hours) Vital Signs Temp Pulse Resp BP BP Pulse Ox 10/25/19 16:10 46 L 18 96 02/09/19 15:06 36.4 C L 45 L 22 145/76 H 92 02/09/19 11:09 41 L 20 91 02/09/19 11:01 36.6 C 44 L 20 135/71 90 02/09/19 07:20 36.3 C L 40 L 18 170/86 H 97 02/09/19 07:10 47 L 22 93
[2019-02-09] MEDS: CEFEPIME 1,000 MG in SYRINGE 0 ML IV SCH (19:51)
[2019-02-09] MEDS: MoRPHine SULFATE 5 MG/0.25 ML UDP PO SCH (19:52)
[2019-02-10] MEDS ORDERED: MAGNESIUM SULFATE / D5W 1 GM/100 ML BAG IV ONE (06:45)
--- NOTE | 2019-02-10 07:08 | XRay Report ---
XR chest 1V portable CLINICAL HISTORY: Follow-up pleural effusion. Lung cancer. COMPARISON STUDY: Chest radiograph February 09, 2019. FINDINGS: Left pleural catheter is in place. A left hydropneumothorax is noted. Gaseous component has slightly decreased. Fluid component is either unchanged or slightly increased. Extensive left lung o pacification is noted. A right pleural effusion with right basilar opacity persists. There is pulmona ry vascular congestion. Cardiomegaly is noted. There is no right pneumothorax. IMPRESSION: 1. Left pleural catheter in place. Redemonstration of a left hydropneumothorax. Decreasing gaseous co mponent with stable or slight increase in fluid component. 2. Persistent right pleural effusion with right basilar opacity. 3. Pulmonary vascular congestion. Electronically signed by: Ladarius Cloud M.D. 02/10/2019 7:07 AM
[2019-02-10] MEDS: ALBUT/IPRATROP 3MG/0.5MG NEB 3 ML VIAL INH SCH ×4 (07:11→18:50)
[2019-02-10] MEDS ORDERED: VANCOMYCIN TROUGH ONE (08:30)
[2019-02-10] MEDS: AMLODIPINE BESYLATE 5 MG TAB PO SCH (08:49)
[2019-02-10] MEDS: PANTOprazole 40 MG TAB PO SCH (08:50)
[2019-02-10] MEDS: FOLIC ACID 1 MG TAB PO SCH (08:50)
[2019-02-10] MEDS: predniSONE 20 MG TAB PO SCH (08:50)
[2019-02-10] MEDS: APIXABAN 5 MG TABLET PO SCH (08:50)
[2019-02-10] MEDS: CYANOCOBALAMIN 500 MCG TABLET (VITAMIN B-12) PO SCH (08:50)
[2019-02-10] MEDS: TAMSULOSIN HCL 0.4 MG CAP PO SCH (08:50)
[2019-02-10] MEDS: CEFEPIME 1,000 MG in SYRINGE 0 ML IV SCH ×2 (09:03→19:45)
[2019-02-10 09:05] LABS: Basophils # (auto) 0.01 K/uL (0-0.2); Basophils % (auto) 0.1 %; Eosinophils # (auto) 0.05 K/uL (0-0.5); Eosinophils % (auto) 0.5 %; Hematocrit (blood only) 37.3 % (42-52); Hemoglobin 11.6 g/dL (14.0-18.0); Immature Granulocytes # (auto) 0.03 K/uL (0.00-0.02); Immature Granulocytes % (auto) 0.3 %; Lymphocytes # (auto) 0.57 K/uL (1.2-3.4); Lymphocytes % (auto) 5.7 %; Mean Corpuscular Hemoglobin 25.9 pg (25-34); Mean Corpuscular Hgb Conc 31.1 g/dL (32-36); Mean Corpuscular Volume 83.3 fL (80-100); Mean Platelet Volume 8.3 fL (7.4-10.4); Monocytes # (auto) 1.25 K/uL (0.11-0.59); Monocytes % (auto) 12.5 %; Neutrophils # (auto) 8.11 K/uL (1.4-6.5); Neutrophils % (auto) 80.9 %; Platelet Count 210 K/uL (130-400); RDW Coefficient of Variation 19.7 % (11.5-14.5); RDW Standard Deviation 60.4 fL (36.4-46.3); Red Blood Count 4.48 M/uL (4.7-6.1); White Blood Count 10.02 K/uL (4.8-10.8)
[2019-02-10 09:40] LABS: BUN Creatinine Ratio 24.6 (10-20); Creatinine Clr Calc Pharmacy 76.5 ml/min; Est GFR (African American) 92.3; Est GFR (Non-African American) 79.7; Magnesium 1.9 mg/dl (1.8-2.4); Potassium 3.8 mmol/L (3.5-5.1)
--- NOTE | 2019-02-10 09:50 | Progress Note ---
DATE: 02/10/2019 The patient is seen today. We drained him for about 130 mL of serous fluid. His saturation on room air is hovering about 90%. I was a bit surprised to see that the fluid appears to be a transudate and LDH of only 85. PH 7.44. Certainly he is not infected and the glucose is 106. We know this is a malignant effusion, however. His x-ray was reviewed today before I drained him. We did not get any air today. He still has significant effusion. I think that this patient may be improved by allowing his lung to expand a bit more. His fluid was free of any blood today. We are going to do the MIST protocol to see if we can get his lung to open up a bit more. I discussed this case with Dr. Duque. The patient has asked about radiation therapy. I do not think there is a place for that. This patient has widely metastatic disease and in fact has survived longer than I would have thought from a 74-year-old with a malignant pleural effusion diagnosed 6 months ago. At any rate, we will proceed with the MIST protocol. I may not go 3 days depending on what we see. We will start that today.
[2019-02-10] MEDS: VANCOMYCIN HCL 1,250 MG in SODIUM CHLORIDE 0.9% 250 ML IV SCH (10:32)
[2019-02-10] MEDS: ALTEPLASE, RECOMBINANT 10 MG in SYRINGE 50 ML IPL SCH (16:19)
[2019-02-10] MEDS: DORNASE ALFA 5 ML in SYRINGE 25 ML IPL SCH (17:17)
--- NOTE | 2019-02-10 18:56 | Hospitalist Progress Note ---
Date of Service February 10, 2019 Assessment & Plan (1) Chronic respiratory failure with hypoxia: (2) Malignant pleural effusion: Present on admission with worsening SOB CXR showed near complete opacification left hemithorax. Mildly progressive increase in density right base. Repeat CXR showed left pleural catheter in place. Redemonstration of a left hydropneumothorax. Decreasing gaseous component with stable or slight increase in fluid component. Persistent right pleural effusion with right basilar opacity. Thoracic surgery on board PleurX cath placed Breathing seems improve Continue oxygen supplement (3) PNA (pneumonia): CXR showed mildly progressive increase in density right base. 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): Received IV lasix 40mg Resumed Oral lasix today (5) Squamous cell carcinoma of left lung: Diagnosed in July 2018 with squamous cell carcinoma as per [facility] records Not a candidate for systemic treatment like chemotherapy as per recent visit with Oncology Oncology recommended comfort care felt to be appropriate Pt is request to see radiation oncology for palliative XRT Will consult radiation oncology (per pt request) (6) Hydronephrosis, right: Chronic indwelling jones catheter present with appropriate output (7) HTN (hypertension): BP has been fluctuated Continue amlodipine, hydralazine (which was increased during previous admission) Continue monitor BP (8) Paroxysmal A-fib: Currently bradycardic in high 40s-low 50s Continue Eliquis (9) Bradycardia: Not a candidate for pacemaker insertion given extremely poor prognosis of underlying malignancy as per cardiology Continue Theophylline to help with the heart rate Continue monitor on telemetry DVT Ppx: Eliquis Code status: DNR Dispo: Will discharge once medically stable Palliative care on board Subjective Pt was seen and examined Sitting in chair with no acute distress Pt said that his breathing slightly improves Denies any chest pain, palpitation, dizziness and fever Physical Exam Physical Exam: General- No acute distress Head- atraumatic Eyes- PERRL, EOMI, ENT- oropharynx clear Neck- supple, no JVD Lungs- Decrease BS Heart- Bradycardia, +systolic murmur Abdomen- normal bowel sounds, soft, nontender Extremities- no calf tenderness, +edema Neuro- alert, oriented x 3; PERRL, EOMI; no facial palsy; no dysarthria Skin- warm & dry Results & Data Vital Signs (Past 12 Hours) Vital Signs Temp Pulse Resp BP BP Pulse Ox 02/10/19 15:17 36.3 C L 52 L 20 155/76 H 95 02/10/19 15:13 42 L 18 97 02/10/19 11:35 36.3 C L 42 L 18 177/84 H 97 02/10/19 11:04 44 L 20 82 L 02/10/19 07:31 36.3 C L 42 L 20 168/86 H 92 02/10/19 07:14 43 L 18 96
[2019-02-10] MEDS: FUROSEMIDE 20 MG TAB PO SCH (19:41)
[2019-02-11] MEDS: ALTEPLASE, RECOMBINANT 10 MG in SYRINGE 50 ML IPL SCH ×2 (04:01→16:40)
[2019-02-11] MEDS: DORNASE ALFA 5 ML in SYRINGE 25 ML IPL SCH ×2 (05:11→17:40)
[2019-02-11] MEDS: ALBUT/IPRATROP 3MG/0.5MG NEB 3 ML VIAL INH SCH ×4 (06:55→19:01)
--- NOTE | 2019-02-11 07:04 | XRay Report ---
XR chest 1V portable CLINICAL HISTORY: mist protocol dyspnea COMPARISON STUDY: 02/10/2019 FINDINGS: Mild improvement in aeration left hemithorax. Left drainage tube unchanged in location. Similar left apical hydropneumothorax. Right lung is grossly clear. There is a small unchanged right effusion. IMPRESSION: 1. Slight improvement in aeration left hemithorax. 2. Unchanged left hydropneumothorax. 3. Small unchanged right basilar pleural effusion. The above report was generated using voice recognition software. It may contain grammatical, syntax or spelling errors. Electronically signed by: Khoa Pham M.D. 02/11/2019 7:03 AM
[2019-02-11] MEDS: CEFEPIME 1,000 MG in SYRINGE 0 ML IV SCH ×2 (09:50→20:04)
[2019-02-11] MEDS: APIXABAN 5 MG TABLET PO SCH (10:04)
[2019-02-11] MEDS: FOLIC ACID 1 MG TAB PO SCH (10:05)
[2019-02-11] MEDS: TAMSULOSIN HCL 0.4 MG CAP PO SCH (10:05)
[2019-02-11] MEDS: AMLODIPINE BESYLATE 5 MG TAB PO SCH (10:06)
[2019-02-11] MEDS: FUROSEMIDE 20 MG TAB PO SCH (10:06)
[2019-02-11] MEDS: predniSONE 20 MG TAB PO SCH (10:07)
[2019-02-11] MEDS: PANTOprazole 40 MG TAB PO SCH (10:07)
[2019-02-11] MEDS: CYANOCOBALAMIN 500 MCG TABLET (VITAMIN B-12) PO SCH (10:07)
--- NOTE | 2019-02-11 13:23 | Progress Note ---
DATE: 02/11/2019 Mr. Kohli was seen today on 02/11/2019. Mr. Kohli looks a bit better to me. He is sitting up eating breakfast. He is eating all of his breakfast. Initially, we drained about another 350 mL through his PleurX after the initial TPA instillation; however, he drained very little after the Dornase. Chest x-ray shows better aeration in the left base. We are going to continue the MIST protocol, as he does not appear to be bleeding from this. From my standpoint, the patient can be shipped back to [facility] and have drainage with PleurX catheters daily starting tomorrow or Tuesday. It is important to understand this patient has widely metastatic disease and I would not recommend chemotherapy or radiation as I do not think it is going to help prolong his longevity or quality of life. MTDKetan
--- NOTE | 2019-02-11 14:49 | Hospitalist Progress Note ---
Date of Service February 11, 2019 Assessment & Plan (1) Chronic respiratory failure with hypoxia: (2) Malignant pleural effusion: Present on admission with worsening SOB CXR showed near complete opacification left hemithorax. Mildly progressive increase in density right base. Repeat CXR showed slight improvement in aeration left hemithorax. Thoracic surgery on board recommended to discharge with the PleurX cath PleurX catheter will need to drain daily when discharge to [facility] Breathing seems improve Continue oxygen supplement Ok from thoracic surgery standpoint to discharge home (3) PNA (pneumonia): CXR showed mildly progressive increase in density right base. 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): Received IV lasix 40mg Continue Lasix 20mg daily (5) Squamous cell carcinoma of left lung: Diagnosed in July 2018 with squamous cell carcinoma as per [facility] records Not a candidate for systemic treatment like chemotherapy as per recent visit with Oncology Oncology recommended comfort care felt to be appropriate Pt is request to see radiation oncology for palliative radiation, discussed with him that not sure if radiation therapy will prolong his life He wants to speak with the Radiation oncology Will consult radiation oncology (per pt request) (6) Hydronephrosis, right: Chronic indwelling jones catheter present with appropriate output (7) HTN (hypertension): BP has been fluctuated Continue amlodipine, hydralazine (which was increased during previous admission) Continue monitor BP (8) Paroxysmal A-fib: Currently bradycardic in high 40s-low 50s Continue Eliquis (9) Bradycardia: Not a candidate for pacemaker insertion given extremely poor prognosis of underlying malignancy as per cardiology Continue Theophylline to help with the heart rate Continue monitor on telemetry DVT Ppx: Eliquis Code status: DNR Dispo: Will discharge to [facility] tomorrow after seeing the radiation oncologist in consultation Palliative care on board Subjective Pt was seen and examined Sitting in chair with no distress Pt feels much better today He is not showing any discomfort or heavy breathing today He looks more awake and his speech is more fluent today Denies any chest pain, palpitation and fever Physical Exam Physical Exam: General- No acute distress Head- atraumatic Eyes- PERRL, EOMI, ENT- oropharynx clear Neck- supple, no JVD Lungs- Decrease BS Heart- Bradycardia, +systolic murmur Abdomen- normal bowel sounds, soft, nontender Extremities- no calf tenderness, +edema Neuro- alert, oriented x 3; PERRL, EOMI; no facial palsy; no dysarthria Skin- warm & dry Results & Data Vital Signs (Past 12 Hours) Vital Signs Temp Pulse Resp BP Pulse Ox 02/11/19 11:44 36.4 C L 43 L 20 128/68 97 02/11/19 11:04 42 L 16 97 02/11/19 07:34 36.5 C 108 H 18 157/80 H 92 02/11/19 06:58 41 L 16 96 02/11/19 03:18 36.5 C 40 L 18 155/83 H 98
[2019-02-12] MEDS: ALTEPLASE, RECOMBINANT 10 MG in SYRINGE 50 ML IPL SCH ×2 (04:10→16:15)
[2019-02-12] MEDS: DORNASE ALFA 5 ML in SYRINGE 25 ML IPL SCH ×2 (05:17→17:24)
[2019-02-12] MEDS: ALBUT/IPRATROP 3MG/0.5MG NEB 3 ML VIAL INH SCH ×4 (07:19→19:13)
--- NOTE | 2019-02-12 07:22 | XRay Report ---
XR chest 1V not portable HISTORY: 74 years-old Male mist protocol follow-up study in a patient with left hydropneumothorax COMPARISON: Chest radiograph 02/11/2019 TECHNIQUE: Portable AP view of the chest FINDINGS: Unchanged positioning of the left-sided chest tube which coils and terminates about the left midlung. Left hydropneumothorax redemonstrated which appears generally unchanged from comparison. Volume loss of the left lung with multifocal opacities also appears unchanged. Trace right pleural effusion. Mil dly decreased right lung base opacities. Heart is mildly enlarged. Degenerative changes of the should ers and spine. IMPRESSION: 1. Stable positioning of the left-sided chest tube with unchanged left hydropneumothorax. 2. Trace right pleural effusion with mildly improved aeration of the right lung base. The above report was generated using voice recognition software. It may contain grammatical, syntax o r spelling errors. Electronically signed by: Frank Helton M.D. 02/12/2019 7:21 AM
[2019-02-12] MEDS: CEFEPIME 1,000 MG in SYRINGE 0 ML IV SCH (07:44)
[2019-02-12] MEDS ORDERED: APIXABAN 2.5 MG TAB PO SCH (09:00)
--- NOTE | 2019-02-12 09:46 | Progress Note ---
DATE: 02/12/2019 The patient is seen today on 02/12/2019. He looks good. He has less edema in his upper extremities. He has decreased breath sounds on the left. His PleurX site is clean. He is on day 2 of the MIST protocol and he really has not drained much. His chest x-ray, I think, looks a little worse today. He has a bit more fluid, I think. At this point, would like to continue the MIST-2 for one more day and then we will go straight to PleurX drainage and I think he can be sent back to [facility] as early as Tuesday. SVETLANA
[2019-02-12] MEDS: FOLIC ACID 1 MG TAB PO SCH (10:24)
[2019-02-12] MEDS: TAMSULOSIN HCL 0.4 MG CAP PO SCH (10:24)
[2019-02-12] MEDS: FUROSEMIDE 20 MG TAB PO SCH (10:25)
[2019-02-12] MEDS: AMLODIPINE BESYLATE 5 MG TAB PO SCH (10:25)
[2019-02-12] MEDS: PANTOprazole 40 MG TAB PO SCH (10:26)
[2019-02-12] MEDS: predniSONE 20 MG TAB PO SCH (10:26)
[2019-02-12] MEDS: CYANOCOBALAMIN 500 MCG TABLET (VITAMIN B-12) PO SCH (10:27)
--- NOTE | 2019-02-12 12:06 | Radiation OncologyConsultation ---
Date of Consultation February 12, 2019 Assessment & Plan (1) Squamous cell carcinoma of left lung: Assessment: Mr. Kohli is a 74-year-old gentleman with metastatic non-small cell lung carcinoma. The patient has received no chemotherapy or radiation therapy due to poor functional status. The patient has been admitted to the hospital due to reaccumulating pleural effusions involving the left lung status post multiple chest tubes and Pleurx catheter placement. The patient was previously met with medical oncology in the outpatient setting and at that point there was a recommendation against any chemotherapy. During this admission and previous admission, his providers have discussed consideration of hospice and comfort care. The patient has requested consideration of radiation therapy. I am now seeing the patient in consultation. Treatment Options: 1. Palliative care including comfort care/hospice. 2. Palliative external beam radiation therapy. Recommendation: I have advised against palliative external beam radiation therapy given the fact that I believe it is a low yield for potential benefit for the patient. If the patient is very adamant about trying treatment, we could consider a short course of hypofractionated radiation therapy however I explained to the patient that there is less than a 25% chance that he would derive any noticeable benefit given the fact that he has a recurrent pleural effusion which is affecting his quality of life more significantly. Plan: 1. No plan for radiation therapy at this time. Radiation oncology signing off. 2. Continue medical management as per hospital team. 3. Call us with any further questions or concerns. Patient can be seen again if needed. History of Present Illness Attending Physician: Olivia Carter MD History of Present Illness 07/2018. As per outside medical records, the patient was admitted to [facility] for shortness of breath and was found to have a left lung mass with pleural effusion which was determined to be malignant consistent with squamous cell carcinoma. The patient did not follow with medical oncology. The patient has not received any treatment regarding his cancer diagnosis including surgery, radiation therapy or chemotherapy. 07/29/2018. Lung, left upper lobe, biopsy: Squamous cell carcinoma. PDL1 positive. Bronchial washings consistent with squamous cell carcinoma. 12/26/2018. Medical oncology consult with Dr. Garcia at [facility]. Dr. Apryl arana recommended medical oncology follow-up with provider closer to where he lives in [facility],. 12/29/2018. Left pleural fluid: No evidence of malignancy. 01/07/2019. CT of chest. Pertinent findings include masslike area of airspace consolidation within the left upper lobe measuring 80 x 75 mm compatible with the patient's known history of left upper lobe squamous cell carcinoma. There are 2 left-sided chest tubes along the posterior inferior aspects of the left hemithorax. There is minimal left pleural effusion within the region of the left posterior costophrenic recess. There are airspace opacities within the posterior inferior aspect of the left lower lobe which may reflect atelectasis or pneumonia. New small to moderate layering right pleural effusion when compared to previous CT chest. 01/15/2019. Patient presents to emergency room due to shortness of breath. Patient admitted to hospital for further work-up and evaluation. During course of admission, patient has management regarding chest tubes and Pleurx catheter due to pleural effusion. 01/15/2019. CT of chest. IMPRESSION: 1. Extensive peribronchovascular consolidation most prominently in the lower lobes though also to varying degrees throughout the remaining lobes. This is worrisome for multifocal pneumonia or multifocal cryptogenic organizing pneumonia. 2. Extensive endobronchial debris in the lower lobes, which may represent mucous plugging, aspiration, or infectious debris. 3. Bilateral pleural effusions, loculated on the left with pleural drains in place. 4. No pneumothorax. 5. Volume overload with anasarca. No angel pulmonary edema. 6. Cardiomegaly. 02/04/2019. Chest x-ray. IMPRESSION: 1. Stable positioning of the left-sided chest tube with unchanged left hydropneumothorax. 2. Trace right pleural effusion with mildly improved aeration of the right lung base. 02/08/2019. Patient admitted to hospital again due to shortness of breath and re-draining left chest wall pleural effusion. 02/09/2019. Reinsertion of Pleurx catheter by Dr. Webber. Currently, the patient has dyspnea at rest. Significant fatigue and tired. Allergies Allergy/AdvReac Type Severity Reaction Status Date / Time hepatitis B immune globulin AdvReac Unknown Unverified 02/08/19 14:44 losartan AdvReac hyperkalemi Verified 02/08/19 14:44 a Home Medications Home Medications Medication Instructions Recorded Confirmed Type Eliquis 5 mg PO QAM 01/10/19 02/08/19 History cyanocobalamin (vitamin B-12) 1,000 mcg PO QAM 01/10/19 02/08/19 History acetaminophen 325 mg PO Q6H PRN 02/08/19 02/08/19 History amlodipine 10 mg PO DAILY 02/08/19 02/08/19 History bisacodyl [Dulcolax (bisacodyl)] 10 mg SD DAILY PRN 02/08/19 02/08/19 History folic acid 1 mg PO DAILY 02/08/19 02/08/19 History furosemide [Lasix] 20 mg PO DAILY 02/08/19 02/08/19 History hydralazine 25 mg PO TID 02/08/19 02/08/19 History ipratropium-albuterol 3 ml INHALATION Q4H 02/08/19 02/08/19 History pantoprazole [Protonix] 40 mg PO DAILY 02/08/19 02/08/19 History prednisone 20 mg PO DAILY 02/08/19 02/08/19 History pseudoephedrine-guaifenesin 1 tab PO BID PRN 02/08/19 02/08/19 History tamsulosin 0.4 mg PO DAILY 02/08/19 02/08/19 History theophylline 200 mg PO BID 02/08/19 02/08/19 History umeclidinium [Incruse Ellipta] 1 inh INHALATION DAILY 02/08/19 02/08/19 History Patient History Medical History Malignant pleural effusion (Chronic) COPD (chronic obstructive pulmonary disease) (Chronic) Squamous cell carcinoma of left lung (Chronic) 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) (Chronic) Hydronephrosis, right (Chronic) HTN (hypertension) (Chronic) Paroxysmal A-fib (Chronic) Surgical History H/O knee surgery (Chronic) Hx of cholecystectomy (Chronic) Family History Other Cancer Social History Preferred Language: Polish Communication Ability: Effective It Support Technician Required: No Beliefs That Will Affect Care: None marital status: Single Current Living Situation: [place]way Current Living Situation Comment: [facility] current occupational status: retired Other Information That Helps Us Care for You: No Feels Safe at Home: Yes Smoking Status: Former smoker Second Hand Exposure: No ; Hx Alcohol Use: No Hx Substance Use: No Review of Systems Review of Systems: All systems reviewed & are unremarkable except as noted in HPI & below Physical Exam Constitutional: + acute distress, + thin and + cachectic Eyes: PERRL, conjunctivae normal, anicteric sclerae ENMT: external ear and nose normal, oropharynx normal Neck: trachea midline, no thyromegaly Respiratory: Auscultation: + diminished lung sounds Musculoskeletal: no cyanosis or clubbing, extremities motor strength 5/5 Psychiatric: A+Ox3, euthymic affect Results Additional Studies 02/08/19 13:27 XR chest 1V portable Stat 02/08/19 13:47 ECG 12 lead EKG Stat 02/09/19 10:33 XR chest 1V portable Stat 02/10/19 08:00 XR chest 1V portable Routine 02/11/19 08:00 XR chest 1V portable Routine 02/12/19 08:00 XR chest 1V not portable DAILY 02/13/19 06:00 XR chest 1V portable Stat 02/13/19 08:00 XR chest 1V not portable DAILY Time Spent Attending I spent 40 minutes for this consultation, which included obtaining clinical information, performing a physical exam, recommending a plan of action and answering questions. Greater than 50% of the time spent was direct face to face interaction with the patient.
--- NOTE | 2019-02-12 13:30 | Hospitalist Progress Note ---
Date of Service February 12, 2019 Assessment & Plan (1) Chronic respiratory failure with hypoxia: On 2-3L home O2 Left lung squamous cell carcinoma with history of malignant pleural effusion, COPD, chronic combined systolic and diastolic heart failure, chronic bradycardia/paroxysmal A. fib on Eliquis, chronic right hydronephrosis with Jones in place and other medical problems listed below who presents with worsening shortness of breath over the past few days. Was recently admitted from 01/15-01/26 for acute on chronic respiratory failure in setting of malignant pleural effusion with PleurX catheter malfunction and pneumonia which had been removed previously. PleurX reinserted on left chest on 02/09/[address] Webber Continue oxygen supplementation (2) Malignant pleural effusion: Present on admission with worsening SOB CXR showed near complete opacification left hemithorax. Mildly progressive increase in density right base. Repeat CXR showed slight improvement in aeration left hemithorax. Thoracic surgery on board. Currently has PleurX catheter in situ on left chest. Currently on MIST-2. Per Dr Webber's note today MIST-2 can be continued for one more day. PleurX catheter will need to drain daily when discharged to [facility] Patient wanted radiation Oncologist evaluation for possible radiotherapy. Per Rad onc note, not recommended and no plan for radiotherapy at this point Will plan discharge once stable (3) Squamous cell carcinoma of left lung: Diagnosed in July 2018 with squamous cell carcinoma as per [facility] records Not a candidate for systemic treatment like chemotherapy as per recent visit with Oncology Oncology recommended comfort care felt to be appropriate Radiation oncology do not recommend any radiation Patient is currently DNR Palliative on board Consider hospice care (4) PNA (pneumonia): CXR showed mildly progressive increase in density right base. Recently completed 2 weeks of cefdinir Mild leukocytosis of 11.89, mild lactic acidosis of 2.8 on admission Have resolved Continue Cefepime for now. 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): Received IV lasix 40mg Continue Lasix 20mg daily (6) Hydronephrosis, right: Chronic indwelling jones catheter present with appropriate output (7) HTN (hypertension): BP has been poorly controlled Continue amlodipine, Will increase hydralazine to 50mg TID and monitor (8) Paroxysmal A-fib: Currently bradycardic in high 40s-low 50s Continue Corona (9) Bradycardia: Not a candidate for pacemaker insertion given extremely poor prognosis of underlying malignancy as per cardiology Continue Theophylline home med on discharge to help with the heart rate Continue monitor on telemetry DVT Ppx: Eliquis Code status: DNR Dispo: Will discharge to [facility] Subjective Patient seen and examined. Reports shortness of breath unchanged. Denied any chest pain. Review of Systems Constitutional: + fatigue Eyes: no problem reported Ear, Nose, Mouth, Throat: no problem reported Respiratory: + dyspnea Cardiovascular: + dyspnea at rest and + edema; no chest pain Gastrointestinal: no problem reported Genitourinary: no problem reported Psychiatric: no problem reported Hematologic / Lymphatic: no problem reported Physical Exam Constitutional: + cachectic In mild respiratory distress Eyes: PERRL and EOM intact bilaterally ENMT: external ear and nose normal, oropharynx normal Respiratory: + respiratory distress (Conversational dyspnea), + uses accessory muscles and + dullness to percussion (Left lung zone) Auscultation: + diminished lung sounds (in left lung zone) Cardiovascular: Bradycardic, irregular rhythm, S1 S2 Gastrointestinal (Abdomen): Inspection/Auscultation: abdomen normal to inspection and normal bowel sounds; abdomen not distended Percussion/Palpation: abdomen soft; abdomen nontender and no guarding Musculoskeletal: Bilateral leg edema 2+ Neurologic: PERRL, EOMI, accommodation nl, no face palsy, no dysarthria AOx 3 Psychiatric: A+Ox3, euthymic affect Results & Data Vital Signs (Past 12 Hours) Vital Signs Temp Pulse Pulse Resp BP BP Pulse Ox 02/12/19 11:20 36 L 02/12/19 11:12 43 L 20 96 02/12/19 07:26 41 L 16 90 02/12/19 07:06 36.4 C L 44 L 28 H 158/70 H 99 02/12/19 03:40 36.3 C L 44 L 18 186/90 H 97 02/12/19 03:25 153/82 H
[2019-02-12] MEDS ORDERED: CEFEPIME 2,000 MG in SYRINGE 0 ML IV SCH (14:04)
[2019-02-12] MEDS: HydrALAZINE TAB 50 MG TAB PO SCH ×2 (14:36→20:54)
[2019-02-12] MEDS: APIXABAN 5 MG TABLET PO SCH (20:53)
[2019-02-12] MEDS: CEFEPIME 2,000 MG in SYRINGE 7.5 ML IV SCH (20:57)
[2019-02-13] MEDS: ALTEPLASE, RECOMBINANT 10 MG in SYRINGE 50 ML IPL SCH (04:02)
[2019-02-13] MEDS: DORNASE ALFA 5 ML in SYRINGE 25 ML IPL SCH (05:14)
--- NOTE | 2019-02-13 07:15 | XRay Report ---
XR chest 1V portable CLINICAL HISTORY: effusion COMPARISON STUDY: 02/04/2019 FINDINGS: Similar study left hemithorax compared to the prior exam. Left-sided chest tube is unchange d. There is a left-sided hydropneumothorax. There is a 5 mm maximum pleural separation left pulmonary apex. This is most likely similar compared to the prior study in retrospect. IMPRESSION: 1. Similar exam with a small residual left hydropneumothorax unchanged from the prior study. 2. Maximum left apical pleural separation is 5 mm. 3. All remaining components of the study are similar. The above report was generated using voice recognition software. It may contain grammatical, syntax or spelling errors. Electronically signed by: Khao Pham M.D. 02/13/2019 7:14 AM
[2019-02-13] MEDS: ALBUT/IPRATROP 3MG/0.5MG NEB 3 ML VIAL INH SCH (07:27)
[2019-02-13] MEDS: CYANOCOBALAMIN 500 MCG TABLET (VITAMIN B-12) PO SCH (07:54)
[2019-02-13] MEDS: AMLODIPINE BESYLATE 5 MG TAB PO SCH (07:54)
[2019-02-13] MEDS: PANTOprazole 40 MG TAB PO SCH (07:54)
[2019-02-13] MEDS: HydrALAZINE TAB 50 MG TAB PO SCH ×3 (07:55→20:39)
[2019-02-13] MEDS: FOLIC ACID 1 MG TAB PO SCH (07:55)
[2019-02-13] MEDS: APIXABAN 5 MG TABLET PO SCH (07:55)
[2019-02-13] MEDS: predniSONE 20 MG TAB PO SCH (07:55)
[2019-02-13] MEDS: FUROSEMIDE 20 MG TAB PO SCH (07:56)
[2019-02-13] MEDS: TAMSULOSIN HCL 0.4 MG CAP PO SCH (07:56)
[2019-02-13] MEDS ORDERED: APIXABAN 5 MG TABLET PO SCH (09:00)
[2019-02-13] MEDS: CEFEPIME 2,000 MG in SYRINGE 7.5 ML IV SCH (09:23)
[2019-02-13] MEDS ORDERED: ALBUT/IPRATROP 3MG/0.5MG NEB 3 ML VIAL INH PRN (09:54)
[2019-02-13] MEDS ORDERED: MoRPHine SULFATE 2 MG/ML CARP IV PRN (09:59)
--- NOTE | 2019-02-13 10:53 | Hospitalist Progress Note ---
Date of Service February 13, 2019 Assessment & Plan (1) Chronic respiratory failure with hypoxia: COMFORT CARE /HOSPICE Left lung squamous cell carcinoma with history of malignant pleural effusion, COPD, chronic combined systolic and diastolic heart failure, chronic bradycardia/paroxysmal A. fib on Eliquis, chronic right hydronephrosis with Jones in place and other medical problems listed below who presents with worsening shortness of breath over the past few days. Was recently admitted from 01/15-01/26 for acute on chronic respiratory failure in setting of malignant pleural effusion with PleurX catheter malfunction and pneumonia which had been removed previously. PleurX reinserted on left chest on 02/09/[address] Webber Continue oxygen supplementation (2) Malignant pleural effusion: Present on admission with worsening SOB CXR showed near complete opacification left hemithorax. Mildly progressive increase in density right base. Repeat CXR showed slight improvement in aeration left hemithorax. Thoracic surgery on board. Currently has PleurX catheter in situ on left chest. Currently on MIST-2. Per Dr Webber's note today MIST-2 can be continued for one more day. PleurX catheter will need to drain daily when discharged to [facility] appreciate radiation Oncologist evaluation :Per Rad onc note, not recommended and no plan for radiotherapy at this point recommend Hospice (3) Squamous cell carcinoma of left lung: Diagnosed in July 2018 with squamous cell carcinoma as per [facility] records Not a candidate for systemic treatment like chemotherapy as per recent visit with Oncology Oncology recommended comfort care felt to be appropriate Radiation oncology do not recommend any radiation Patient is currently DNR Palliative on board goal of care transitioned to hospice /comfort care as per Pt;s wish (4) PNA (pneumonia): CXR showed mildly progressive increase in density right base. 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): on Lasix 20mg daily will deescalate therapy for comfort care over all prognosis is very poor (6) Hydronephrosis, right: Chronic indwelling jones catheter present with appropriate output (7) HTN (hypertension): BP has been poorly controlled Continue amlodipine, on hydralazine to 50mg TID and monitor (8) Paroxysmal A-fib: Currently bradycardic in high 40s-low 50s will dc campus monitor goal of care transitioned to hospice /comfort care D/c Eliquis , , pt has limited life expectancy /risk of bleeding outweights the benefit at this point (9) Bradycardia: Not a candidate for pacemaker insertion given extremely poor prognosis of underlying malignancy as per cardiology goal of care transitioned to hospice /comfort care DVT Ppx: Eliquis Code status: DNR Dispo: discharge to [facility] with hospice care tomorrow 02/14/2019 Subjective Patient to be very tired and lethargic, opens eyes to voice, denies of any shortness of breath, pain or discomfort Understands that he has limited life expectancy Patient requests to be comfortable only, Goal of care transition to hospice/comfort care Physical Exam Constitutional: + cachectic Eyes: PERRL and EOM intact bilaterally ENMT: external ear and nose normal, oropharynx normal Respiratory: + respiratory distress (Conversational dyspnea), + uses accessory muscles and + dullness to percussion (Left lung zone) Auscultation: + diminished lung sounds (in left lung zone) Gastrointestinal (Abdomen): Inspection/Auscultation: abdomen normal to inspection and normal bowel sounds; abdomen not distended Percussion/Palpation: abdomen soft; abdomen nontender and no guarding Neurologic: PERRL, EOMI, accommodation nl, no face palsy, no dysarthria Psychiatric: A+Ox3, euthymic affect Results & Data Vital Signs (Past 12 Hours) Vital Signs Temp Pulse Resp BP Pulse Ox 02/13/19 07:27 44 L 18 91 02/13/19 07:20 36.7 C 41 L 20 154/81 H 92 02/13/19 03:42 36.8 C 46 L 24 154/78 H 94 02/12/19 23:23 36.6 C 43 L 19 161/84 H 95
--- NOTE | 2019-02-13 13:48 | Palliative Care Progress Note ---
Date of Service February 13, 2019 Assessment & Plan (1) Goals of care, counseling/discussion: -Comfort measurs only. -Patient is returning to [facility] upon discharge. I believe he is still using his skilled days at the SNF, but then will transition to comfort/hospice care after. -POLST form completed on admission stating DNR and comfort measures only. -Patient denies complaints other than occasional SOB. Has Roxanol ordered as needed. Dr. Dalton will order Roxanol and lorazepam on discharge. -Discharge tomorrow, palliative care will sign off. (2) Malignant pleural effusion: (3) Squamous cell carcinoma of left lung: (4) PNA (pneumonia): Review of Systems Review of Systems: + weakness + cough and + dyspnea + edema; no chest pain no abdominal pain and no nausea no confusion no anxiety Physical Exam Constitutional: + ill appearing ENMT: external ear and nose normal, oropharynx normal Respiratory: + labored breathing Auscultation: + diminished lung sounds and + crackles Cardiovascular: Rate/Rhythm: regular rate and regular rhythm Extremities: + edema (trace BLE) Gastrointestinal (Abdomen): Inspection/Auscultation: normal bowel sounds Percussion/Palpation: abdomen soft; abdomen nontender Neurologic: moves all extremities and awake Psychiatric: Orientation: alert and oriented x 3 Insight: good insight Results & Data Vital Signs (Past 12 Hours) Vital Signs Temp Pulse Resp BP Pulse Ox 02/13/19 07:27 44 L 18 91 02/13/19 07:20 36.7 C 41 L 20 154/81 H 92 02/13/19 03:42 36.8 C 46 L 24 154/78 H 94 Time Spent Midlevel 25 minutes with >50% of the time spent at bedside with patient and attending physician discussing plan of care.
--- NOTE | 2019-02-13 15:03 | Progress Note ---
DATE: 02/13/2019 Filipe Kohli was seen today on 02/13/2019. He has drained quite a bit from his pleural catheter. Unfortunately, we have not seen a good response in his x-ray. He still has significant opacification; however, he feels better. At this point, we will continue the MIST-2 protocol until this afternoon. We will then check a CT scan tomorrow morning after we drain him.
--- NOTE | 2019-02-14 08:20 | Surgery Progress Note ---
Date of Service February 14, 2019 Assessment & Plan (1) Malignant pleural effusion: -pt. is s/p insertion of left pleurex on 02/09/19 -cultures noted to be (-) for growth -MIST-2 protocol was implemented and completed on 02/13/19 -this am there was no drainage from catheter -CT scan of chest is planned for this morning -further recommendations will be based on CT scan findings Subjective Pt. notes his breathing is comfortable. He denies CP. No shakes, chills, fevers. Discussed with RN and no issues noted. Physical Exam Constitutional: no acute distress Respiratory: normal respiratory effort; no respiratory distress and no labored breathing BS noted to be decreased on left Results & Data Vital Signs (Past 12 Hours) Vital Signs Temp Pulse Resp BP BP Pulse Ox 02/14/19 00:00 36.7 C 43 L 18 149/74 H 94 02/13/19 20:37 43 L 156/74 H PG Care Time/CCT Total # of Minutes Spent Total Time Spent with Patient: Total time spent is greater than 50% in coordination of care (as documented) at patient's floor/unit and/or counseling patient:
--- NOTE | 2019-02-14 10:36 | CT Scan Report ---
CT chest wo con CLINICAL HISTORY: assess left pleural effusion LEFT LUNG SQUAMOUS CELL CARCINOMA. COMPARISON STUDY: No previous studies for comparison. CT DOSE: 618.44 mGycm TECHNIQUE: CT of the thorax was performed from the thoracic inlet to the lung bases. Images are revi ewed in the axial, sagittal, and coronal planes. IV contrast was not administered for this examinatio n. A dose lowering technique was utilized adhering to the principles of ALARA. FINDINGS: Thyroid: There is a persistent multinodular thyroid gland. Thoracic aorta: There is persistent dilatation of the thoracic aorta. The ascending thoracic aorta le ernestine of pulmonary artery measures 41 mm. Heart: The heart is enlarged. There is trace pericardial fluid. Lungs and pleural spaces: There are small bilateral pleural effusions right greater than left. There is an indwelling left-sided pleural drain. There is persistent right lower lobe atelectasis/consolida tion. There is air within the left pleural space indicative of a hydropneumothorax. There is complete obstruction of the left upper lobe bronchus with left upper lobe collapse. There is a suspected 7.5 cm mass in the region of the lingula. There is suspected invasion to the pericardium. There is persis tent left lower lobe atelectasis/consolidation. Mediastinum: There are pathologically enlarged mediastinal lymph nodes including a 14 mm AP window no de. Laurel: There is suspected left hilar adenopathy. Evaluation is limited due to the lack of intravenous contrast Axilla: There is no evidence of pathologic axillary lymphadenopathy Upper abdomen: There is a probable large upper pole right renal cyst Skeletal structures: There is a healing left lower rib fracture. IMPRESSION: 1. Persistent bilateral pleural effusions right larger than left. There is a left-sided pleural drain present and there is a left-sided hydropneumothorax. 2. Large left lung lingular mass measuring 7.5 cm in diameter 3. There is probable invasion into the pericardium. 4. Complete obstruction of the left upper lobe bronchus with interval development of left upper lobe collapse 5. Persistent bilateral lower lobe atelectasis/consolidation. Electronically signed by: Aravind See M.D. 02/14/2019 10:35 AM
--- NOTE | 2019-02-14 18:51 | Hospitalist Progress Note ---
Date of Service February 14, 2019 Assessment & Plan (1) Chronic respiratory failure with hypoxia: COMFORT CARE /HOSPICE Left lung squamous cell carcinoma with history of malignant pleural effusion, COPD, chronic combined systolic and diastolic heart failure, chronic bradycardia/paroxysmal A. fib on Eliquis, chronic right hydronephrosis with Jones in place and other medical problems listed below who presents with worsening shortness of breath over the past few days. Was recently admitted from 01/15-01/26 for acute on chronic respiratory failure in setting of malignant pleural effusion with PleurX catheter malfunction and pneumonia which had been removed previously. PleurX reinserted on left chest on 02/09/[address] Webber Continue oxygen supplementation CT chest noncontrast: 02/14/2019 IMPRESSION: 1. Persistent bilateral pleural effusions right larger than left. There is a left-sided pleural drain present and there is a left-sided hydropneumothorax. 2. Large left lung lingular mass measuring 7.5 cm in diameter 3. There is probable invasion into the pericardium. 4. Complete obstruction of the left upper lobe bronchus with interval development of left upper lobe collapse 5. Persistent bilateral lower lobe atelectasis/consolidation. Patient remains symptomatic, without any complaint of shortness of breath respiratory distress Discussed with Dr. Aceves , regarding palliative approach (2) Malignant pleural effusion: Present on admission with worsening SOB CXR showed near complete opacification left hemithorax. Mildly progressive increase in density right base. Repeat CXR showed slight improvement in aeration left hemithorax. Thoracic surgery on board. Currently has PleurX catheter in situ on left chest. Currently on MIST-2. Per Dr Webber's note today MIST-2 can be continued for one more day. PleurX catheter will need to drain daily when discharged to [facility] radiation Oncologist evaluation :Per Rad onc note, not recommended and no plan for radiotherapy at this point recommend Hospice Patient is transition to hospice comfort care (3) Squamous cell carcinoma of left lung: Diagnosed in July 2018 with squamous cell carcinoma as per [facility] records Not a candidate for systemic treatment like chemotherapy as per recent visit with Oncology Oncology recommended comfort care felt to be appropriate Radiation oncology do not recommend any radiation Patient is currently DNR Palliative on board goal of care transitioned to hospice /comfort care as per Pt;s wish (4) PNA (pneumonia): CXR showed mildly progressive increase in density right base. 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): on Lasix 20mg daily will deescalate therapy for comfort care over all prognosis is very poor (6) Hydronephrosis, right: Chronic indwelling jones catheter present with appropriate output (7) Bradycardia: Not a candidate for pacemaker insertion given extremely poor prognosis of underlying malignancy as per cardiology goal of care transitioned to hospice /comfort care DVT Ppx: Eliquis Code status: DNR Dispo: Plan to discharge to group home hospice Subjective Patient is very comfortable, denies of any pain or discomfort no shortness of breath no cough Physical Exam Constitutional: + cachectic Eyes: PERRL and EOM intact bilaterally ENMT: external ear and nose normal, oropharynx normal Respiratory: + respiratory distress (Conversational dyspnea), + uses accessory muscles and + dullness to percussion (Left lung zone) Auscultation: + diminished lung sounds (in left lung zone) Gastrointestinal (Abdomen): Inspection/Auscultation: abdomen normal to inspection and normal bowel sounds; abdomen not distended Percussion/Palpation: abdomen soft; abdomen nontender and no guarding Neurologic: PERRL, EOMI, accommodation nl, no face palsy, no dysarthria Psychiatric: A+Ox3, euthymic affect Results & Data Vital Signs (Past 12 Hours) Vital Signs Pulse BP 02/14/19 08:15 38 L 130/74
[2019-02-15] MEDS ORDERED: ALTEPLASE, RECOMBINANT 1 MG/ML 2ML VIAL IPL ONE (09:00)
--- NOTE | 2019-02-15 09:47 | Surgery Progress Note ---
Date of Service February 15, 2019 Assessment & Plan (1) Malignant pleural effusion: The Pleurx catheter did not drain anything after draining 450 cc of bloody fluid yesterday. I am concerned is not functioning properly. We are going to place a small amount of TPA in the tube and let it sit for an hour or so. This is probably fibrin or clot occluding the catheter. We will see how his x-ray looks. I would not send him back yet as I am afraid this catheter may not be working. Present on Admission?: Yes Subjective The patient has no complaints. Physical Exam Physical Exam: The patient's Pleurx catheter site is clean. He has decreased breath sounds in both bases. He is not subjectively short of breath. Saturations on 2 L are 94%. Otherwise, he is unchanged in physical exam. Results & Data Diagnostic Findings I reviewed his CT scan from yesterday and his left lower lobe is fully expanded with no real pleural effusion. Unfortunately, he has occlusion of his left upper lobe bronchus most likely due to his primary cancer. He has collapse of left upper lobe and he has some loculated air and fluid at the apex. PG Care Time/CCT Total # of Minutes Spent Total Time Spent with Patient: Total time spent is greater than 50% in coordination of care (as documented) at patient's floor/unit and/or counseling patient:
--- NOTE | 2019-02-15 16:59 | Hospitalist Progress Note ---
Date of Service February 15, 2019 Assessment & Plan (1) Chronic respiratory failure with hypoxia: COMFORT CARE /HOSPICE Left lung squamous cell carcinoma with history of malignant pleural effusion, COPD, chronic combined systolic and diastolic heart failure, chronic bradycardia/paroxysmal A. fib on Eliquis, chronic right hydronephrosis with Jones in place and other medical problems listed below who presents with worsening shortness of breath over the past few days. Was recently admitted from 01/15-01/26 for acute on chronic respiratory failure in setting of malignant pleural effusion with PleurX catheter malfunction and pneumonia which had been removed previously. PleurX reinserted on left chest on 02/09/[address] Webber Continue oxygen supplementation CT chest noncontrast: 02/14/2019 IMPRESSION: 1. Persistent bilateral pleural effusions right larger than left. There is a left-sided pleural drain present and there is a left-sided hydropneumothorax. 2. Large left lung lingular mass measuring 7.5 cm in diameter 3. There is probable invasion into the pericardium. 4. Complete obstruction of the left upper lobe bronchus with interval development of left upper lobe collapse 5. Persistent bilateral lower lobe atelectasis/consolidation. Patient remains symptomatic, without any complaint of shortness of breath respiratory distress Appreciate input from Dr. Iraheta Concern for possible blockage of Pleurx catheter, as drainage was minimum/stopp ed Patient will be started small amount of TPA in the catheter to dissolve fibrin clot occluding the catheter Thoracic surgery following closely Sending patient to [facility] with up-to-date Pleurx catheter will need to increase discomfort, shortness of breath chest pain Patient should continue hospital stay until Pleurx catheter ablation is resolved (2) Malignant pleural effusion: Present on admission with worsening SOB CXR showed near complete opacification left hemithorax. Mildly progressive increase in density right base. Repeat CXR showed slight improvement in aeration left hemithorax. Thoracic surgery on board. Currently has PleurX catheter in situ on left chest. Currently on MIST-2. Per Dr Webber's note today MIST-2 can be continued for one more day. PleurX catheter will need to drain daily when discharged to [facility] appreciate radiation Oncologist evaluation :Per Rad onc note, not recommended and no plan for radiotherapy at this point recommend Hospice Patient is transition to hospice comfort care (3) Squamous cell carcinoma of left lung: Diagnosed in July 2018 with squamous cell carcinoma as per [facility] records Not a candidate for systemic treatment like chemotherapy as per recent visit with Oncology Oncology recommended comfort care felt to be appropriate Radiation oncology do not recommend any radiation Patient is currently DNR Palliative on board goal of care transitioned to hospice /comfort care as per Pt;s wish (4) PNA (pneumonia): CXR showed mildly progressive increase in density right base. Recently completed 2 weeks of cefdinir Mild leukocytosis of 11.89, mild lactic acidosis of 2.8 on admission Have re solved very poor prognosis goal of care transitioned to hospice /comfort care (5) 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): on Lasix 20mg daily will deescalate therapy for comfort care over all prognosis is very poor (6) Hydronephrosis, right: Chronic indwelling jones catheter present with appropriate output (7) Bradycardia: Not a candidate for pacemaker insertion given extremely poor prognosis of underlying malignancy as per cardiology goal of care transitioned to hospice /comfort care DVT Ppx: Eliquis Code status: DNR Dispo: Plan to discharge to [facility] hospice when medically stable Subjective Status remains unchanged, denies of any pain or discomfort, At present on comfort care hospice Physical Exam Constitutional: + cachectic Eyes: PERRL and EOM intact bilaterally ENMT: external ear and nose normal, oropharynx normal Respiratory: + respiratory distress (Conversational dyspnea), + uses accessory muscles and + dullness to percussion (Left lung zone) Auscultation: + diminished lung sounds (in left lung zone) Gastrointestinal (Abdomen): Inspection/Auscultation: abdomen normal to inspection and normal bowel sounds; abdomen not distended Percussion/Palpation: abdomen soft; abdomen nontender and no guarding Neurologic: PERRL, EOMI, accommodation nl, no face palsy, no dysarthria Psychiatric: A+Ox3, euthymic affect
--- NOTE | 2019-02-16 07:19 | XRay Report ---
XR chest 1V portable CLINICAL HISTORY: effusion COMPARISON STUDY: 02/13/2019 FINDINGS: The heart is enlarged. A left-sided pleural catheter is again visualized. Kinks in the cath eter cannot be excluded on this single projection. There is a persistent moderate left pleural effusi on. There is elevation of interstitium and an element of pulmonary vascular congestion/fluid overload is suspected. There are progressive right lower lobe airspace opacities with air bronchograms. No pn eumothorax is visualized[ IMPRESSION: 1. Persistent moderate loculated left pleural effusion 2. Elevation of interstitium raising the possibility of pulmonary vascular congestion/fluid overload 3. Progressive right lower lung zone airspace opacities with air bronchograms Electronically signed by: Aravind See M.D. 02/16/2019 7:18 AM
--- NOTE | 2019-02-16 14:47 | Surgery Progress Note ---
Date of Service February 16, 2019 Assessment & Plan (1) Bilateral pleural effusion: Patient is tolerating his Pleurx well. It appears to be draining him well. I will reiterate that this patient has occlusion of his left upper lobe bronchus. He is going to have collapse of his left upper lobe no matter what we do in his pleural cavity. We will leave his Pleurx in for the time being. Present on Admission?: Yes Subjective Mr. Kohli is unchanged. He is eating better. He denies problems with his breathing. Review of Systems Review of Systems: All systems reviewed & are unremarkable except as noted in HPI & below No change other than that noted in the subjective component of this note. Physical Exam Physical Exam: He has decreased breath sounds in both lung [place] worse on the left than the right. His Pleurx site is clean. He is ill-appearing. He drained about 350 cc from his Pleurx today. PG Care Time/CCT Total # of Minutes Spent Total Time Spent with Patient: Total time spent is greater than 50% in coordination of care (as documented) at patient's floor/unit and/or counseling patient:
--- NOTE | 2019-02-16 18:03 | Hospitalist Progress Note ---
Date of Service February 16, 2019 Assessment & Plan (1) Chronic respiratory failure with hypoxia: COMFORT CARE /HOSPICE Left lung squamous cell carcinoma with history of malignant pleural effusion, COPD, chronic combined systolic and diastolic heart failure, chronic bradycardia/paroxysmal A. fib on Eliquis, chronic right hydronephrosis with Jones in place and other medical problems listed below who presents with worsening shortness of breath over the past few days. Was recently admitted from 01/15-01/26 for acute on chronic respiratory failure in setting of malignant pleural effusion with PleurX catheter malfunction and pneumonia which had been removed previously. PleurX reinserted on left chest on 02/09/[address] Webber Continue oxygen supplementation CT chest noncontrast: 02/14/2019 IMPRESSION: 1. Persistent bilateral pleural effusions right larger than left. There is a left-sided pleural drain present and there is a left-sided hydropneumothorax. 2. Large left lung lingular mass measuring 7.5 cm in diameter 3. There is probable invasion into the pericardium. 4. Complete obstruction of the left upper lobe bronchus with interval development of left upper lobe collapse 5. Persistent bilateral lower lobe atelectasis/consolidation. Patient remains symptomatic, without any complaint of shortness of breath respiratory distress Appreciate input from Dr. Iraheta Concern for possible blockage of Pleurx catheter, as drainage was minimum/stopp ed given small amount of TPA in the catheter to dissolve fibrin clot occluding the catheter Appreciate input from CT surgery, Able to drain 350 cc total effusion from Pleurx catheter today No further procedure or intervention will give any benefit for the patient in this scenario/complete collapse of the left upper lobe noted secondary to occlusion of left upper lobe bronchus due to cancer/tumor Plan to discharge patient to [facility] with hospice care Instruction will be given to hospice nursing to daily drainage of Pleurx catheter (2) Malignant pleural effusion: Present on admission with worsening SOB CXR showed near complete opacification left hemithorax. Mildly progressive increase in density right base. Repeat CXR showed slight improvement in aeration left hemithorax. Thoracic surgery on board. Currently has PleurX catheter in situ on left chest. PleurX catheter will need to drain daily when discharged to [facility] appreciate radiation Oncologist evaluation :Per Rad onc note, not recommended and no plan for radiotherapy at this point recommend Hospice Patient is transition to hospice comfort care (3) Squamous cell carcinoma of left lung: Diagnosed in July 2018 with squamous cell carcinoma as per [facility] records Not a candidate for systemic treatment like chemotherapy as per recent visit with Oncology Oncology recommended comfort care felt to be appropriate Radiation oncology do not recommend any radiation Patient is currently DNR Palliative on board goal of care transitioned to hospice /comfort care as per Pt;s wish (4) PNA (pneumonia): CXR showed mildly progressive increase in density right base. 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): Was on Lasix 20mg daily -is continued Medication De escalated for comfort care over all prognosis is very poor (6) Hydronephrosis, right: Possible secondary to metastatic disease Chronic indwelling jones catheter present (7) Bradycardia: Not a candidate for pacemaker insertion given extremely poor prognosis of underlying advanced malignancy as per cardiology goal of care transitioned to hospice /comfort care Code status: DNR Dispo: Patient can return back to [facility] with hospice care tomorrow 02/17/2019 We will update case management Subjective Patient appears to be comfortable denies of any pain or discomfort, no complaint of shortness of breath or pleuritic chest pain Evaluated by Dr. cameron this morning Drained about 350 cc pleural effusion from Pleurx catheter today Chest x-ray shows unchanged, patient has total occlusion of left upper lobe bronchus secondary to cancer metastasis Overall prognosis remains extremely poor Patient remains asymptomatic, pain-free, with no respiratory distress CT surgery feels pt will not need benefit further procedure, Can return back to [facility] with hospice care Physical Exam Constitutional: + cachectic Eyes: PERRL and EOM intact bilaterally ENMT: external ear and nose normal, oropharynx normal Respiratory: + respiratory distress (Conversational dyspnea), + uses accessory muscles and + dullness to percussion (Left lung zone) Auscultation: + diminished lung sounds (in left lung zone) Gastrointestinal (Abdomen): Inspection/Auscultation: abdomen normal to inspection and normal bowel sounds; abdomen not distended Perc ussion/Palpation: abdomen soft; abdomen nontender and no guarding Neurologic: PERRL, EOMI, accommodation nl, no face palsy, no dysarthria Psychiatric: A+Ox3, euthymic affect
--- NOTE | 2019-02-17 07:36 | XRay Report ---
XR chest 1V portable HISTORY: 74 years-old Male pleural effusion follow-up study in a patient with left pleural effusion COMPARISON: Chest radiograph 02/16/2019, chest CT 02/14/2019 TECHNIQUE: Portable AP view of the chest FINDINGS: Stable positioning of the left-sided chest tube. Loculated left pleural effusion is unchanged with pe rsistent left lung volume loss with multifocal opacities. Persistent right midlung and right lung bas e opacities with probable small right pleural effusion. Pulmonary vascular congestion with interstiti al opacities throughout the right lung. Degenerative changes of the shoulders and spine. IMPRESSION: 1. Stable positioning of the left-sided chest tube with unchanged left pleural effusion. 2. Unchanged patchy airspace opacities throughout the right lung. 3. Cardiomegaly. The above report was generated using voice recognition software. It may contain grammatical, syntax o r spelling errors. Electronically signed by: Frank Helton M.D. 02/17/2019 7:34 AM
--- NOTE | 2019-02-17 08:38 | Surgery Progress Note ---
Date of Service February 17, 2019 Assessment & Plan (1) Malignant pleural effusion: Patient has progressive left lung cancer which is resulted in collapse of his left upper lobe. His x-ray is unchanged. The process in his right lower lobe is a bit concerning radiographically but clinically he appears to be fairly stable. His Pleurx catheter is draining a serous fluid. At this point, it appears that the Pleurx has helped keep his left lower lobe expanded. It is kept comfortable and from my standpoint as the catheter is working well, he can be discharged back to [facility] with the primary care service deems him stable enough. Present on Admission?: Yes Subjective Mr. Maurice is unchanged clinically. He is eating well. He denies shortness of breath. He has been more active here in the hospital is been getting up to the chair. Physical Exam Physical Exam: Pleurx site on the left is clean. His chest tube sites of heal ed nicely. He has decreased breath sounds on the left. He has a few rhonchi on the right without wheezing. Clinically he is about the same. Results & Data Vital Signs (Past 12 Hours) Vital Signs Temp Pulse Resp BP Pulse Ox 02/16/19 23:17 36.7 C 37 L 18 178/87 H 99 PG Care Time/CCT Total # of Minutes Spent Total Time Spent with Patient: Total time spent is greater than 50% in coordination of care (as documented) at patient's floor/unit and/or counseling patient:
--- NOTE | 2019-02-17 17:56 | Hospitalist Progress Note ---
Date of Service February 17, 2019 Assessment & Plan (1) Chronic respiratory failure with hypoxia: COMFORT CARE /HOSPICE Left lung squamous cell carcinoma with history of malignant pleural effusion, COPD, chronic combined systolic and diastolic heart failure, chronic bradycardia/paroxysmal A. fib on Eliquis, chronic right hydronephrosis with Jones in place and other medical problems listed below who presents with worsening shortness of breath over the past few days. Was recently admitted from 01/15-01/26 for acute on chronic respiratory failure in setting of malignant pleural effusion with PleurX catheter malfunction and pneumonia which had been removed previously. PleurX reinserted on left chest on 02/09/[address] Webber Continue oxygen supplementation CT chest noncontrast: 02/14/2019 IMPRESSION: 1. Persistent bilateral pleural effusions right larger than left. There is a left-sided pleural drain present and there is a left-sided hydropneumothorax. 2. Large left lung lingular mass measuring 7.5 cm in diameter 3. There is probable invasion into the pericardium. 4. Complete obstruction of the left upper lobe bronchus with interval development of left upper lobe collapse 5. Persistent bilateral lower lobe atelectasis/consolidation. Patient remains symptomatic, without any complaint of shortness of breath respiratory distress Appreciate input from Dr. Iraheta Concern for possible blockage of Pleurx catheter, as drainage was minimum/stopp ed given small amount of TPA in the catheter to dissolve fibrin clot occluding the catheter Appreciate input from CT surgery, Able to drain 350 cc total effusion from Pleurx catheter today No further procedure or intervention will give any benefit for the patient in this scenario/complete collapse of the left upper lobe noted secondary to occlusion of left upper lobe bronchus due to cancer/tumor Plan to discharge patient to snf Instruction will be given to nursing to daily drainage of Pleurx catheter (2) Malignant pleural effusion: Present on admission with worsening SOB CXR showed near complete opacification left hemithorax. Mildly progressive increase in density right base. Repeat CXR showed slight improvement in aeration left hemithorax. Thoracic surgery on board. Currently has PleurX catheter in situ on left chest. PleurX catheter will need to drain daily when discharged to [facility] appreciate radiation Oncologist evaluation :Per Rad onc note, not recommended and no plan for radiotherapy at this point recommend Hospice Patient is transition to hospice comfort care (3) Squamous cell carcinoma of left lung: Diagnosed in July 2018 with squamous cell carcinoma as per [facility] records Not a candidate for systemic treatment like chemotherapy as per recent visit with Oncology Oncology recommended comfort care felt to be appropriate Radiation oncology do not recommend any radiation Patient is currently DNR Palliative on board goal of care transitioned to hospice /comfort care as per Pt;s wish (4) PNA (pneumonia): CXR showed mildly progressive increase in density right base. 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): Was on Lasix 20mg daily -is continued Medication De escalated for comfort care over all prognosis is very poor (6) Hydronephrosis, right: Possible secondary to metastatic disease Chronic indwelling jones catheter present (7) Bradycardia: Not a candidate for pacemaker insertion given extremely poor prognosis of underlying advanced malignancy as per cardiology goal of care transitioned to hospice /comfort care Code status: DNR Dispo: Patient will return back to snf /[facility] tomorrow 02/18/2019 Subjective No change in status comfortable denies of any pain or discomfort, no complaint of shortness of breath or pleuritic chest pain Plan to return back to [facility] /snf tomorrow Physical Exam Constitutional: + cachectic Eyes: PERRL and EOM intact bilaterally ENMT: external ear and nose normal, oropharynx normal Respiratory: + respiratory distress (Conversational dyspnea), + uses accessory muscles and + dullness to percussion (Left lung zone) Auscultation: + diminished lung sounds (in left lung zone) Gastrointestinal (Abdomen): Inspection/Auscultation: abdomen normal to inspection and normal bowel sounds; abdomen not distended Percussion/Palpation: abdomen soft; abdomen nontender and no guarding Neurologic: PERRL, EOMI, accommodation nl, no face palsy, no dysarthria Psychiatric: A+Ox3, euthymic affect
--- NOTE | 2019-02-18 09:01 | Surgery Progress Note ---
Date of Service February 18, 2019 Assessment & Plan (1) Malignant pleural effusion: We will keep up with the patient's Pleurx amounts of drainage. It is possible we could remove this catheter if the drainage decreases. The meantime he is on hospice will be sent back to [facility]. He has progressive lung cancer which is not being treated. Present on Admission?: Yes Subjective Mr. Kohli has no complaints this morning. He has breakfast normally. He is draining between 3 and 400 cc of serous fluid daily from the Pleurx. He is tentatively scheduled to go back to [facility] this morning. Physical Exam Physical Exam: Is awake and alert. He is wearing oxygen. He has edema in his extremities and has anasarca. His Pleurx site is clean. He has decreased breath sounds in both bases with a few upper airway rhonchi. He is awake and alert this morning. PG Care Time/CCT Total # of Minutes Spent Total Time Spent with Patient: Total time spent is greater than 50% in coordination of care (as documented) at patient's floor/unit and/or counseling patient:
--- NOTE | 2019-02-18 11:53 | Discharge Summary ---
Date of Service February 18, 2019 Admission HPI Per Admitting Provider This is a 74yo M from [facility] with a PMH of chronic respiratory failure on 2- 3L home O2, left lung squamous cell carcinoma with history of malignant pleural effusion, COPD, chronic combined systolic and diastolic heart failure, chronic bradycardia/paroxysmal A. fib on Eliquis, chronic right hydronephrosis with Jones in place and other medical problems listed below who presents with worsening shortness of breath over the past few days. Patient was recently admitted to our service from 01/15-01/26 for acute on chronic respiratory failure in setting of malignant pleural effusion with PleurX catheter malfunction and pneumonia. CT chest showed extensive peribronchovascular consolidation most prominently in the lower lobes though also to varying degrees throughout the remaining lobes and extensive endobronchial debris in the lower lobes, which may represent mucous plugging, aspiration, or infectious debris. Bilateral pleural effusions, loculated on the left with pleural drains in place. Was treated with IV Lasix BID as well as Zosyn and Vanc. Dr. Webber of thoracic surgery evaluated and felt that catheter was a wick for infection and removed PleurX catheter and regular chest tube on 01/15. Discussed goals of care with palliative and was made a DNR. Wanted to wait until follow up appointment with heme onc until making any other care-related decisions. Patient was discharged back to [facility] on a 2 week course of cefdinir. On Feb 05, patient followed up with Dr. Quinonez of heme onc who said that patient is not a candidate for systemic treatment such as chemotherapy and felt that comfort care is most appropriate. Patient has been feeling progressively more short of breath the past few days. Providers at [facility] felt patient was more short of breath and had decreased left sided lung sounds so sent to ED for further evaluation. Is saturating at 96% on 2L NC. Endorses intermittent dry cough but denies fever, chills, headache, lightheadedness, sore throat, chest pain, palpitations, abdominal pain, nausea, vomiting, dysuria, constipation or diarrhea. Has jones catheter in place draining dark yellow urine. Principal Diagnosis METASTATIC LUNG CANCER, MALIGNANT PLEURAL EFFUSION, VERY POOR PROGNOSIS, HOSPICE COMFORT CARE Discharge Exam Constitutional + ill appearing and + cachectic; no acute distress Eyes PERRL and EOM intact bilaterally ENMT external ear and nose normal, oropharynx normal Respiratory + dullness to percussion (Left lung zone); no respiratory distress (Conversational dyspnea) Auscultation: + diminished lung sounds (in left lung zone) Gastrointestinal (Abdomen) Inspection/Auscultation: abdomen normal to inspection and normal bowel sounds; abdomen not distended Percussion/Palpation: abdomen soft; abdomen nontender and no guarding Musculoskeletal Left chest wall Pleurx catheter present Neurologic PERRL, EOMI, accommodation nl, no face palsy, no dysarthria Psychiatric A+Ox3, euthymic affect Discharge Data Allergies Allergy/AdvReac Type Severity Reaction Status Date / Time hepatitis B immune globulin AdvReac Unknown Unverified 02/08/19 14:44 losartan AdvReac hyperkalemi Verified 02/08/19 14:44 a Consultations 02/08/19 14:41 ED Decision to Admit Stat 02/08/19 18:11 Consult Case Management - Discharge Planning Routine 02/08/19 19:48 Consult Case Management - Discharge Planning Routine 02/08/19 19:50 Consult Palliative Care Routine Consult Thoracic Surgery Routine 02/12/19 07:00 Consult Radiation Oncology Routine Ordered Studies 02/14/19 08:00 CT chest wo con Routine IMPRESSION: 1. Persistent bilateral pleural effusions right larger than left. There is a left-sided pleural drain present and there is a left-sided hydropneumothorax. 2. Large left lung lingular mass measuring 7.5 cm in diameter 3. There is probable invasion into the pericardium. 4. Complete obstruction of the left upper lobe bronchus with interval development of left upper lobe collapse 5. Persistent bilateral lower lobe atelectasis/consolidation. 6. Thoracic aorta: There is persistent dilatation of the thoracic aorta. The ascending thoracic aorta level of pulmonary artery measures 41 mm. Hospital Course (1) Chronic respiratory failure with hypoxia: COMFORT CARE /HOSPICE METASTATIC STAGE IV SQUAMOUS CELL CARCINOMA OF LUNG This is an unfortunate 74-year-old male who was recently diagnosed ( July 2018 at [facility] ) with a squamous cell carcinoma of his left lung and had bilateral pleural effusion .pt underwent Left thoracoscopy with limited decortication, pleurectomy, insertion of chest tube, and an indwelling pleural catheter. on 12/29/2018 at [facility] [place]. Patient was sent to [facility] at [place] for continued Rehab pt had continued draining large amount of malignant fluid, Was recently admitted from 01/15-01/26 for acute on chronic respiratory failure in setting of malignant pleural effusion with PleurX catheter malfunction and pneumonia Pleurx catheter was removed on 01/16/2019_ By CT Surgery Patient was readmitted on 02/08/2019, with worsening shortness of breath, chest discomfort PleurX reinserted on left chest on 02/09/[address] chest noncontrast: 02/14/2019 IMPRESSION: 1. Persistent bilateral pleural effusions right larger than left. There is a left-sided pleural drain present and there is a left-sided hydropneumothorax. 2. Large left lung lingular mass measuring 7.5 cm in diameter 3. There is probable invasion into the pericardium. 4. Complete obstruction of the left upper lobe bronchus with interval development of left upper lobe collapse 5. Persistent bilateral lower lobe atelectasis/consolidation. Patient remains symptomatic, without any complaint of shortness of breath respiratory distress Appreciate input from Dr. Iraheta Concern for possible blockage of Pleurx catheter, as drainage was minimum/stopped given small amount of TPA in the catheter to dissolve fibrin clot occluding the catheter Appreciate input from CT surgery, Able to drain drain 300-400 serous pleural fluid every day Recommends continue daily Pleurx catheter drainage If no drainage noted from the Pleurx catheter, patient developed fever, chest pain/shortness of breath-possible caused by occlusion of Pleurx catheter Thoracic surgery should be notified to remove left-sided Pleurx catheter and continue comfort care No further procedure or intervention will give any benefit for the patient in this scenario/complete collapse of the left upper lobe noted secondary to occlusion of left upper lobe bronchus due to cancer/tumor Recommends comfort care hospice Patient is discharged to senior care, [facility] Instruction will be given to nursing to daily drainage of Pleurx catheter (2) Malignant pleural effusion: due to metastatic Sq cell CA of lungs CXR showed near complete opacification left hemithorax. Mildly progressive increase in density right base. Repeat CXR showed slight improvement in aeration left hemithorax. Thoracic surgery on board. Currently has PleurX catheter in situ on left chest. PleurX catheter will need to drain daily when discharged to [facility] Not a candidate for systemic treatment like chemotherapy as per recent visit with Oncology appreciate radiation Oncologist evaluation :Per Rad onc note, not recommended and no plan for radiotherapy at this point recommend Hospice Patient is transition to hospice comfort care Patient input from palliative care POLST form filled out (3) Squamous cell carcinoma of left lung: Diagnosed in July 2018 with squamous cell carcinoma as per [facility] records Not a candidate for systemic treatment like chemotherapy as per recent visit with Oncology Oncology recommended comfort care felt to be appropriate Radiation oncology do not recommend any radiation Patient is currently DNR Palliative on board goal of care transitioned to hospice /comfort care as per Pt;s wish (4) PNA (pneumonia): CXR showed mildly progressive increase in density right base. 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): Was on Lasix 20mg daily -discontinued Medication De escalated for comfort care over all prognosis is very poor (6) Hydronephrosis, right: Possible secondary to metastatic disease Chronic indwelling jones catheter present (7) Bradycardia: Not a candidate for pacemaker insertion given extremely poor prognosis of underlying advanced malignancy as per cardiology goal of care transitioned to hospice /comfort care Code status: DNR Dispo: Overall very poor prognosis with limited life expectancy Rapidly declining in clinical status secondary to aggressive squamous cell carcinoma of left lung with widespread metastasis: Including pleura, left upper lobe causing complete occlusion of left upper bronchus leading to collapse of left lobe, invasion of pericardium, sternal involvement with pathologic lymphadenopathy None not a candidate for any treatment Terminal/end-stage status Patient chose to be comfortable/under hospice/palliative care for his final days Patient is discharged to senior care/[facility] -on comfort care hospice Total Time Total Time Spent Total Time Spent (In Minutes): Approximately 45 minutes Total Time Includes: Examination of the Patient, Discharge Planning and Medication Reconciliation Discharge Plan Discharge Items Patient Disposition: Trans Resident Long-Term Care Reason For Visit: SOB IN SETTING OF MALIG PLEURAL EFFUSION,CHF Discharge Diagnosis: Metastatic lung cancer, malignant pleural effusion, very poor prognosis, hospice comfort care Activity: As commented below Activity Comment: As tolerated Non-emergency contact: Primary Care Provider Call non-emergency contact if: you have any medication questions Follow-up/Referrals: Gene Webber MD, FACS [Surgeon] - (in one week to assess Plurex catheter , please call office to schedule an appointment ) Reagan Rawls [Primary Care Provider] - Diet: Regular Diet Texture: Dental soft (bite-sized) Addtl Attending Provider Instructions: Continue to follow-up with physician at senior care Please continue daily drainage from right-sided Pleurx catheter Patient has been draining between at [id number] of serous fluid daily from the Pleurx PLEASE NOTIFY THORACIC SURGERY DR. VILLEGSA, IF NO DRAINAGE NOTED FROM THE PLEURX CATHETER, PATIENT DEVELOPED WORSENING OF SHORTNESS OF BREATH, CHEST PAIN DISCOMFORT-COULD BE SECONDARY TO OCCLUSION OF PLEURX CATHETER AND PLUREX CATHETER WILL NEED TO BE REMOVED Thoracic surgery follow-up in 1 week to assess Pleurx catheter, please call to schedule an appointment Pending Studies at Discharge: No Stand-Alone Forms: My [facility] Skilled Items Patient informed of condition?: Yes DNR: Yes Discharge Level of Care: Other Communicable Disease: No Discharge Prognosis: Deteriorating Lines: None Urinary Catheter: Yes Medications and DC Order Prescriptions: New morphine concentrate 100 mg/5 mL (20 mg/mL) Solution 10 mg PO Q4 PRN (Reason: pain) Qty: 30 RF: 0 lorazepam [Ativan] 0.5 mg tablet 0.5 mg SL Q6H PRN (Reason: anxiety /discomfort ) Qty: 20 RF: 0 Continued acetaminophen 325 mg Tablet 325 mg PO Q6H PRN (Reason: Fever Or Pain) RF: 0 pseudoephedrine-guaifenesin 60-600 mg Tablet Extended Release 12 Hr 1 tab PO BID PRN (Reason: Congestion) RF: 0 bisacodyl [Dulcolax (bisacodyl)] 10 mg Suppository 10 mg AL DAILY PRN (Reason: Constipation) RF: 0 Changed ipratropium-albuterol 0.5 mg-3 mg(2.5 mg base)/3 mL Solution For Nebulization 3 ml INHALATION Q4H PRN (Reason: wheeze) Qty: 0 RF: 0 Discontinued cyanocobalamin (vitamin B-12) 500 mcg Tablet 1,000 mcg PO QAM RF: 0 Eliquis 5 mg Tablet 5 mg PO QAM RF: 0 theophylline 200 mg Tablet Extended Release 12 Hr 200 mg PO BID RF: 0 amlodipine 5 mg Tablet 10 mg PO DAILY RF: 0 prednisone 20 mg Tablet 20 mg PO DAILY RF: 0 hydralazine 25 mg Tablet 25 mg PO TID RF: 0 tamsulosin 0.4 mg Capsule 0.4 mg PO DAILY RF: 0 pantoprazole [Protonix] 40 mg Tablet,Delayed Release (Dr/Ec) 40 mg PO DAILY RF: 0 folic acid 1 mg Tablet 1 mg PO DAILY RF: 0 furosemide [Lasix] 20 mg Tablet 20 mg PO DAILY RF: 0 Incruse Ellipta 62.5 mcg/actuation Blister With Device 1 inh INHALATION DAILY RF: 0 Discharge Orders: Discharge Order (Routine); Ordered 02/18/19 Ordered By: Lavinia Dalton Admission Data Admit Date/Time: 02/08/19 17:06 Attending Provider: Lavinia Dalton Admit Provider: Cathie Regan Primary Care Provider: Reagan Rawls Other Providers: Curly, ; Lasha Duque ; Cathie Regan ; Gene Webber ; Barbara Quinonez
== END 2019-02-18 15:01 | DRG 180 ==
LOC: ED 13:01 → SUATTDRO 17:06 → 2W 17:06 → 4W 02-13 10:47